=== PATIENT | female | born 1950 | race Caucasian/White ===

== ENCOUNTER 2016-02-12 20:46 | Inpatient (IN) | payer MEDICARE ==
[~2016-02-12] VITALS: Ht 154.9 cm; Wt 56.1 kg
[~2016-02-12 20:46] MED LIST: ALPR0.25 PO; ASPI1TAB PO; ASPI325T PO; ATEN50TA2 PO; CARV3.12 PO; DRIS50002 PO; FERR325T3 PO; FOLITAB5 PO; FURO20TA2 PO; HYDR25TAB PO; KLOR1CAP2 PO; LOSA25TA8 PO; LOSA50TA20 PO; LOVA40TA PO; MELO15TA4 PO; OXYCO5TA PO; PREG50CA PO; SERT25TA85 PO; VITA-130 PO; VITMTA PO
[2016-02-12] MEDS: SIMVASTATIN 40 MG TAB PO SCH (21:00)
[2016-02-12] MEDS: FOLIC ACID 1 MG TAB PO SCH (21:00)
[2016-02-12] MEDS: ASCORBIC ACID 500 MG TAB PO SCH (21:00)
[2016-02-12] MEDS ORDERED: ASPIRIN 325 MG TAB As Ordered ONE (21:22)
[2016-02-12 21:29] LABS: DIFF SLIDE NUMBER 314; MEAN CORPUSCULAR HEMOGLOBIN 29.7 pg (27.0-33.0); MEAN CORPUSCULAR HGB CONC 33.3 g/dl (32.0-36.5); MEAN CORPUSCULAR VOLUME 89.4 fl (80.0-96.0); RED CELL DISTRIBUTION WIDTH 16.6 % (11.5-14.5)
[2016-02-12 21:30] LABS: PLATELET COUNT, AUTOMATED 14 k/mm3 (150-450); WHITE BLOOD COUNT 0.7 K/mm3 (4.0-10.0)
[2016-02-12 21:45] LABS: ANISOCYTOSIS 1+
[2016-02-12 21:47] LABS: ALBUMIN 3.2 GM/DL (3.2-5.2); ALBUMIN/GLOBULIN RATIO 0.86 (1.00-1.93); ALKALINE PHOSPHATASE 83 U/L (45-117); ANION GAP 11 MEQ/L (8-16); AST/SGOT 17 U/L (15-37); BILIRUBIN,DIRECT 0.4 MG/DL (0.0-0.2); BILIRUBIN,TOTAL 1.1 MG/DL (0.2-1.0); BLOOD UREA NITROGEN 14 MG/DL (7-18); CARBON DIOXIDE LEVEL 23 MEQ/L (21-32); CHLORIDE LEVEL 107 MEQ/L (98-107); FREE T4 1.21 NG/DL (0.76-1.46); GLOMERULAR FILTRATION RATE 39.9 (>45); GLUCOSE, FASTING 128 MG/DL (80-110); POTASSIUM SERUM 4.7 MEQ/L (3.5-5.1); SODIUM LEVEL 141 MEQ/L (136-145); TOTAL PROTEIN 6.9 GM/DL (6.4-8.2)
[2016-02-12 21:52] LABS: ALT/SGPT 11 U/L (12-78)
[2016-02-12] MEDS ORDERED: ZOSYN 3.375 GM VIAL (J2543) As Ordered ONE (22:47)
[2016-02-12] MEDS ORDERED: VANCOMYCIN 1000 MG/20 ML VIAL (J3370) As Ordered ONE (22:47)
[2016-02-12] MEDS ORDERED: CIPR500T3 PO (23:15)
[2016-02-12] MEDS ORDERED: LORA10TA2 PO (23:15)
[2016-02-12] MEDS ORDERED: POTA10CA PO (23:15)
[2016-02-12] MEDS ORDERED: MIRA33504 PO (23:15)
[2016-02-12] MEDS ORDERED: DIPH50CA PO (23:15)
[2016-02-12] MEDS ORDERED: FOLI1TAB2 PO (23:15)
[2016-02-12] MEDS ORDERED: PROC10TA PO (23:15)
[2016-02-12] MEDS ORDERED: LORA0.5T PO (23:15)
[2016-02-13] VITALS (14 sets, daily range): BP systolic 124–150; BP diastolic 59–82
[2016-02-13] MEDS ORDERED: diphenhydrAMINE 50 MG CAP PO PRN (00:15)
[2016-02-13] MEDS ORDERED: MIRALAX *UNIT DOSE* 17GM PACKET PO PRN (00:15)
--- NOTE | 2016-02-13 01:18 | EDDOCDS ---
Nurse's Notes [facility] Name: Cheyanne Alexander Age: 65 yrs Sex: Female : 1950 Arrival Date: 02/12/2016 Time: 20:46 Bed 11 Private MD: Diagnosis: Fever, unspecified;Neutropenia Presentation: 02/11 20:50 Presenting complaint: EMS states: family called for delirium/fever. temp 101.9. pt mlc unable to answer simple questions. pt c/o substernal chest pain, triple bypass 3 months ago. 1x nitro given by EMS, pain resolved. hx of UTI, pt on day 7 of of cipro. hx of leukemia, finished chemo 2 weeks ago. takes aspirin daily. Adult Sepsis Screening: Patient has new or worsening altered mentation (1 point). Patient's respiratory rate is less than 22. Systolic blood pressure is greater than 100. Patient has a qSOFA score of 1- Negative Sepsis Screen. Suicide/Homicide risk assessment- the patient denies having any suicidal and/or homicidal ideations and does not present with any other emotional, behavioral or mental health complaints. Status: Patient is not a service specialist or dependent. Transition of care: patient was not received from another setting of care. 20:50 Acuity: NILAY Level 2 [facility] [place] 20:50 Method Of Arrival: Amb[place] [facility] [place] Triage Assessment: 21:04 General: Appears in no apparent distress, comfortable, Behavior is cooperative, mlc pleasant. Pain: Location: epigastric area. The patient is triaged at the bedside. See Assessment in Nurses Notes section of ED record. Neurological: Level of Consciousness is awake, confused, obeys commands, Oriented to person, place. Cardiovascular: Chest pain is denied pt states she is having chest pains but is pointing to her abdomen when asked where the pain is.. Respiratory: Airway is patent Respiratory effort is even, unlabored, Respiratory pattern is regular. GI:. GI: Reports nausea, vomiting. Derm: Skin is pale. Historical: - Allergies: SULFA (SULFONAMIDES); - Home Meds: 1. Vitamin D2 50,000 unit oral cap 1 cap once wkly 2. Vitamin C 500 mg Oral tab 1 tab nightly 3. furosemide 20 mg Oral tab 1 tab once daily 4. lovastatin 40 mg Oral tab 1 tab nightly 5. Cipro 500 mg Oral tab 1 tab every 12 hours on day 7 of 14 6. prochlorperazine maleate 10 mg Oral tab 1 tab 3 times per day as needed 7. lorazepam 0.5 mg Oral tab every 6 hours as needed 8. alprazolam 0.25 mg Oral TbDL 0.5 tab every 6 hours as needed 9. carvedilol 3.125 mg oral tab 1 tab 2 times per day 10. oxycodone 5 mg Oral cap 1 cap every 4 hours aS needed 11. aspirin 81 mg Oral tab 1 tab once daily 12. Dulera 100-5 mcg/actuation inhalation HFAA 2 puffs 2 times per day as needed 13. Miralax 17 gram Oral pwpk 1 packet once daily 14. potassium chloride 10 mEq Oral cpER 2 caps once daily 15. pregabalin 50 mg Oral cap 1 cap twice a day - PMHx: Angina; Anxiety; CHF; Chronic kidney disease; COPD; hyperlipidemia; Hypertension; Myocardial infarction; Leukemia; - PSHx: Cataract Surgery- Bilateral; CABG; Tubal ligation; - Social history: Smoking status: Patient states former smoker of tobacco. No barriers to communication noted, The patient speaks fluent Macanese. - Family history: No immediate family members are acutely ill. - : The pt / caregiver states he / she is not on anticoagulants. Home medication list is obtained from the patient, [employer] import data, pill bottles. - Exposure Risk Screening:: None identified. Screenin:08 Screening information is obtained from the patient. Fall risk: At risk due to apparent mlc cognitive impairment. Assistance ADL's: Requires assistance with housework, assistance is provided by family members. Abuse/DV Screen: The patient / caregiver reports he/she is: not in a situation that causes fear, pain or injury. Nutritional screening: No deficits noted. Advance Directives: Currently, there is a health care proxy, Ajit Alexander, son and Lou Alexander, daughter. There is no active DNR order. home support is adequate. Assessment: 21:41 General: Appears in no apparent distress, comfortable, Behavior is cooperative, mlc pleasant. Neurological: Level of Consciousness is awake, confused, obeys commands, Oriented to person, place. Cardiovascular: Capillary refill < 3 seconds Heart tones S1 S2 present. Respiratory: Airway is patent Respiratory effort is even, unlabored, Respiratory pattern is regular, Breath sounds are clear bilaterally. Derm: Skin is pale. 22:34 Reassessment: Patient appears in no apparent distress at this time. pt attempted to mlc urinate on bedpan, unable to at this time. . 23:30 Reassessment: Patient appears in no apparent distress at this time. no changes since [facility] [place] prior. resp easy/unlabored. . 02/12 00:15 General: Appears in no apparent distress, comfortable. General: antibiotics complete at [facility] [place] this time. family at bedside. resp easy/unlabored. pt awake and obeys commands. . Pain: Denies pain. 01:14 General: Appears in no apparent distress, comfortable, Behavior is cooperative. mlc Neurological: Level of Consciousness is awake, confused, obeys commands, Oriented to person, place. Respiratory: Airway is patent Respiratory effort is even, unlabored, Respiratory pattern is regular. Vital Signs: 02/11 21:06 BP 168 / 76; Pulse 103; Resp 20; Temp 96.4(O); Pulse Ox 98% on R/A; Weight 50.8 kg (R); [facility] Height 5 ft. 1 in. (154.94 cm) (R); Pain 6/10; 21:08 Temp 100.9(O); mlc 21:16 Pulse 96 MON; Pulse Ox 100% ; mlc 21:16 BP 197 / 73 (auto/); mlc 21:31 BP 155 / 70 (auto/); mlc 21:31 Pulse 96 MON; Pulse Ox 98% ; mlc 22:33 BP 144 / 54 (man/); mlc 23:46 Pulse 96 MON; Pulse Ox 98% ; [facility] [place] 02/12 00:12 Pulse 92 MON; Pulse Ox 97% ; mlc 00:34 Pulse 96 MON; Pulse Ox 99% ; mlc 00:46 BP 128 / 62 (man/); meagan 00:52 Pulse 98 MON; Pulse Ox 99% ; mlc 00:54 Temp 100.2(O); feb 01:14 BP 124 / 52; Pulse 95; Resp 18; Temp 99.9(O); Pulse Ox 98% on R/A; [facility] [place] 02/11 21:06 Body Mass Index 21.16 (50.80 kg, 154.94 cm) [facility] Vitals: 02/11 21:04 Log In Time N/A - ambulance arrival. [facility] [place] ED Course: 20:47 Patient visited by Vivek Blackwood PCA. kb5 20:47 Louise Louis,RN is Primary Nurse. kb5 20:47 Ja Meadows MD is Attending Physician. br1 20:47 Patient moved to Waiting kb5 20:47 Patient moved to 11 kb5 20:56 Triage Initiated mlc 20:58 Patient visited by Ja Meadows MD. br1 21:07 Pt greeted and oriented to ED. Patient advised of names of staff involved in care, jmv location of call serrato, wait times and NPO status. Patient has correct armband on for positive identification. Placed in gown. Bed in low position. Call light in reach. Side rails up X2. monitoring engineer on. Pulse ox on. NIBP on. 21:08 Patient visited by Nnamdi Del Rio PCA. jmv 21:08 EKG done. (by ED staff). Reviewed by Ja Meadows MD. jmv 21:16 Troponin Sent. mlc 21:16 Cardiac Injury Profile Sent. mlc 21:16 CBC with Diff Sent. mlc 21:16 Basic Metabolic Profile Sent. mlc 21:16 -Blood Culture Sent. mlc 21:16 Lactic Acid (Styles tube on ice) Sent. mlc 21:16 FT4&TSH PANEL Sent. mlc 21:16 LIVER PROFILE Sent. mlc 21:18 Patient visited by Ruth Key LPN. cp1 21:39 Notified attending ED physician of Critical lab value. Dr Meadows notified of WBC of 0.7 feb and platelet of 14. 21:41 PLATELET ESTIMATE Sent. mlc 21:41 DIFFERENTIAL NO CHARGE Sent. mlc 21:42 Patient visited by Louise Louis RN. mlc 21:51 Notified attending ED physician of Critical lab value. lactic acid of 2.[address] Meadows. 22:00 BLOOD CULTURES Sent. mlc 22:34 Uli Chung is Hospitalizing Provider. br1 22:35 Patient visited by Louise Louis RN. mlc 22:58 Maintain field IV. Dressing intact. Site clean & dry. Gauge & site: 20g right AC. mlc 22:58 Inserted saline lock: 22 gauge in right hand The patient tolerated the procedure well. mlc by Kisha Quinn RN. 23:15 [facility] Payment Agreement was scanned into [employer] and attached to record. gjb 23:51 Patient visited by Vivek Blackwood PCA. kb5 02/12 00:20 Patient visited by Kristin Francisco RN. ko2 00:46 Patient visited by Suad Contreras PCA. meagan 00:53 No procedures done that require assistance. mlc 00:54 The patient / caregiver is instructed regarding the plan of care and ED course. mlc Administered Medications: 02/11 21:41 Drug: Aspirin 325 mg [aspirin 325 mg tablet (1 tabs)] Route: PO; mlc 22:58 Drug: vancomycin 1 grams [vancomycin 1,000 mg intravenous injection] Route: IVPB; mlc Infused Over: 60 mins; Site: right antecubital; 02/12 00:19 Follow up: IV Status: Completed infusion; IV Intake: 250ml ko2 00:19 Drug: Piperacillin-Tazobactam 3.375 grams [piperacillin-tazobactam 3.375 gram ko2 intravenous solution] Route: IVPB; Infused Over: 30 mins; Site: right antecubital; Intake: 00:19 IV: 250.00ml; Total: 250.00ml. ko2 Order Results: Lab Order: Basic Metabolic Profile; SPEC'M 02/12/16 21:13 Test: GLUCOSE, FASTING; Value: 128; Range: 80-110; Abnormal: Above high normal; Units: MG/DL; Status: F Test: BLOOD UREA NITROGEN; Value: 14; Range: 7-18; Units: MG/DL; Status: F Test: CREATININE FOR GFR; Value: 1.40; Range: 0.55-1.02; Abnormal: Above high normal; Units: MG/DL; Status: F Test: GLOMERULAR FILTRATION RATE; Value: 39.9; Range: >45; Abnormal: Below low normal; Status: F Test: SODIUM LEVEL; Value: 141; Range: 136-145; Units: MEQ/L; Status: F Test: POTASSIUM SERUM; Value: 4.7; Range: 3.5-5.1; Abnormal: Delta; Units: MEQ/L; Status: F Test: CHLORIDE LEVEL; Value: 107; Range: 98-107; Units: MEQ/L; Status: F Test: CARBON DIOXIDE LEVEL; Value: 23; Range: 21-32; Units: MEQ/L; Status: F Test: ANION GAP; Value: 11; Range: 8-16; Units: MEQ/L; Status: F Test: CALCIUM LEVEL; Value: 8.0; Range: 8.8-10.2; Abnormal: Below low normal; Units: MG/DL; Status: F Test Note: ; Units are mL/min/1.73 m2 Chronic Kidney Disease Staging per NKF: Stage I & II GFR >=60 Normal to Mildly Decreased Stage III GFR 30-59 Moderately Decreased Stage IV GFR 15-29 Severely Decreased Stage V GFR <15 Very Little GFR Left ESRD GFR <15 on HUMAN MACHINE INTERFACE ENGINEER Lab Order: CBC with Diff; SPEC'M 02/12/16 21:13 Test: WHITE BLOOD COUNT; Value: 0.7; Range: 4.0-10.0; Abnormal: Critical Low; Units: K/mm3; Status: F Test: RED BLOOD COUNT; Value: 3.06; Range: 4.00-5.40; Abnormal: Below low normal; Units: M/mm3; Status: F Test: HEMOGLOBIN; Value: 9.1; Range: 12.0-16.0; Abnormal: Below low normal; Units: g/dl; Status: F Test: HEMATOCRIT; Value: 27.4; Range: 36.0-47.0; Abnormal: Below low normal; Units: %; Status: F Test: MEAN CORPUSCULAR VOLUME; Value: 89.4; Range: 80.0-96.0; Units: fl; Status: F Test: MEAN CORPUSCULAR HEMOGLOBIN; Value: 29.7; Range: 27.0-33.0; Units: pg; Status: F Test: MEAN CORPUSCULAR HGB CONC; Value: 33.3; Range: 32.0-36.5; Units: g/dl; Status: F Test: RED CELL DISTRIBUTION WIDTH; Value: 16.6; Range: 11.5-14.5; Abnormal: Above high normal; Units: %; Status: F Test: PLATELET COUNT, AUTOMATED; Value: 14; Range: 150-450; Abnormal: Critical Low; Units: k/mm3; Status: F Test: PLATELET ESTIMATE; Range: NORMAL; Status: I Test: NEUTROPHILS; Value: 3; Range: 35-75; Abnormal: Below low normal; Units: %; Status: F Test: LYMPHOCYTES; Value: 95; Range: 16-52; Abnormal: Above high normal; Units: %; Status: F Test: MONOCYTES; Value: 1; Range: 0-8; Units: %; Status: F Test: ATYPICAL LYMPH; Value: 1; Range: 0-5; Units: %; Status: F Test: ANISOCYTOSIS; Value: 1+; Status: F Lab Order: Cardiac Injury Profile; [facility] 02/12/16 21:13 Test: CPK CREATINE PHOSPHOKINASE; Value: 54; Range: 26-192; Units: U/L; Status: F Test: CK-MB VALUE MASS; Value: 1.0; Range: 0.0-3.6; Units: NG/ML; Status: F Test: MB/CK RELATIVE INDEX; Value: 1.85; Range: < OR =4; Status: F Test Note: ; DIAGNOSIS CRITERIA MMB ng/ml Relative Index (RI) NON-AMI < or = 5 N/A STYLES ZONE > 5 < or = 4 AMI > 5 > 4 Lab Order: Troponin; [facility] 02/12/16 21:13 Test: TROPONIN I; Value: < 0.02; Range: < 0.10; Units: NG/ML; Status: F Test Note: ; Troponin I Reference Interval for Viroblock LOCI: 99th Percentile= 0.00-0.045 ng/ml Risk Stratification: <= 0.10 ng/ml Decreased Risk for Adverse Clinical Events. 0.10-1.50 ng/ml Increased Risk for Adverse Clinical Events. Evaluation of additional criterion and/or repeat testing in 2-6 hours is suggested to rule out myocardial damage. >= 1.50 ng/ml Indicative of Myocardial Injury. Lab Order: Lactic Acid (Styles tube on ice); [facility] 02/12/16 21:13 Test: LACTIC ACID LEVEL, LACTATE; Value: 2.1; Range: 0.4-2.0; Abnormal: Above high normal; Units: MMOL/L; Status: F Lab Order: FT4&TSH PANEL; [facility] 02/12/16 21:13 Test: THYROID STIMULATING HORMONE; Value: 0.867; Range: 0.358-3.740; Units: uIU/ML; Status: F Test: FREE T4; Value: 1.21; Range: 0.76-1.46; Units: NG/DL; Status: F Lab Order: LIVER PROFILE; SPEC'M 02/12/16 21:13 Test: AST/SGOT; Value: 17; Range: 15-37; Units: U/L; Status: F Test: ALT/SGPT; Value: 11; Range: 12-78; Abnormal: Below low normal; Units: U/L; Status: F Test: ALKALINE PHOSPHATASE; Value: 83; Range: 45-117; Units: U/L; Status: F Test: BILIRUBIN,TOTAL; Value: 1.1; Range: 0.2-1.0; Abnormal: Above high normal; Units: MG/DL; Status: F Test: BILIRUBIN,DIRECT; Value: 0.4; Range: 0.0-0.2; Abnormal: Above high normal; Units: MG/DL; Status: F Test: TOTAL PROTEIN; Value: 6.9; Range: 6.4-8.2; Units: GM/DL; Status: F Test: ALBUMIN; Value: 3.2; Range: 3.2-5.2; Units: GM/DL; Status: F Test: ALBUMIN/GLOBULIN RATIO; Value: 0.86; Range: 1.00-1.93; Abnormal: Below low normal; Status: F Lab Order: PLATELET ESTIMATE; SPEC'M 02/12/16 21:13 Test: PLATELET ESTIMATE; Value: MARKED DECREASE; Range: NORMAL; Status: F Outcome: 02/11 22:34 Decision to Hospitalize by Provider. br1 02/12 01:14 Discharge Assessment: Patient awake, alert and oriented x 3. No cognitive and/or mlc functional deficits noted. Patient verbalized understanding of disposition instructions. patient administered narcotics - no. The following High Risk Discharge criteria are identified: None. Admitted to PCU accompanied by nurse, accompanied by tech, via stretcher, on monitor, with chart. Condition: good Condition: stable. Admission hand-off: Report Faxed Fax receipt verified by Neema on PCU. Property :Personal belongings accompany Pt. 01:16 No special radiology studies were completed. mlc 01:17 Patient left the ED. [facility] [place] Signatures: Nilsa Mann RN RN jan Bancroft, Kristopher, MEAT PACKAGER MEAT PACKAGER [id number] Ja Meadows MD MD br1 Ruth Key,LOU MARADIAGAN cp1 Suad Contreras, MEAT PACKAGER MEAT PACKAGER Louise Suárez,RN RN mlc Kristin Francisco RN RN ko2 Destiny Ayala Jose, MEAT PACKAGER MEAT PACKAGER jmv Corrections: (The following items were deleted from the chart) 01:16 01:14 CT Study completed. fredy daniel MTDD
--- NOTE | 2016-02-13 01:18 | EDDOCDS ---
Physician Documentation [facility] Name: Cheyanne Alexander Age: 65 yrs Sex: Female : 1950 Arrival Date: 02/12/2016 Time: 20:46 Bed 11 Private MD: Disposition: 02/12/16 22:34 Hospitalization ordered by Uli Chung for Inpatient Admission. Preliminary diagnosis are Fever, unspecified, Neutropenia. - Bed requested for PCU. - Status is Inpatient Admission. mlc - Condition is Stable. - Problem is new. - Symptoms are unchanged. Historical: - Allergies: SULFA (SULFONAMIDES); - Home Meds: 1. Vitamin D2 50,000 unit oral cap 1 cap once wkly 2. Vitamin C 500 mg Oral tab 1 tab nightly 3. furosemide 20 mg Oral tab 1 tab once daily 4. lovastatin 40 mg Oral tab 1 tab nightly 5. Cipro 500 mg Oral tab 1 tab every 12 hours on day 7 of 6. prochlorperazine maleate 10 mg Oral tab 1 tab 3 times per day as needed 7. lorazepam 0.5 mg Oral tab every 6 hours as needed 8. alprazolam 0.25 mg Oral TbDL 0.5 tab every 6 hours as needed 9. carvedilol 3.125 mg oral tab 1 tab 2 times per day 10. oxycodone 5 mg Oral cap 1 cap every 4 hours aS needed 11. aspirin 81 mg Oral tab 1 tab once daily 12. Dulera 100-5 mcg/actuation inhalation HFAA 2 puffs 2 times per day as needed 13. Miralax 17 gram Oral pwpk 1 packet once daily 14. potassium chloride 10 mEq Oral cpER 2 caps once daily 15. pregabalin 50 mg Oral cap 1 cap twice a day - PMHx: Angina; Anxiety; CHF; Chronic kidney disease; COPD; hyperlipidemia; Hypertension; Myocardial infarction; Leukemia; - PSHx: Cataract Surgery- Bilateral; CABG; Tubal ligation; - Social history: Smoking status: Patient states former smoker of tobacco. No barriers to communication noted, The patient speaks fluent Danish. - Family history: No immediate family members are acutely ill. - : The pt / caregiver states he / she is not on anticoagulants. Home medication list is obtained from the patient, [employer] import data, pill bottles. - Exposure Risk Screening:: None identified. Vital Signs: 02/11 21:06 BP 168 / 76; Pulse 103; Resp 20; Temp 96.4(O); Pulse Ox 98% on R/A; Weight 50.8 kg / jmv 111.99 lbs (R); Height 5 ft. 1 in. (154.94 cm) (R); Pain 6/10; 21:08 Temp 100.9(O); mlc 21:16 Pulse 96 MON; Pulse Ox 100% ; mlc 21:16 BP 197 / 73 (auto/); mlc 21:31 BP 155 / 70 (auto/); mlc 21:31 Pulse 96 MON; Pulse Ox 98% ; mlc 22:33 BP 144 / 54 (man/); mlc 23:46 Pulse 96 MON; Pulse Ox 98% ; mlc 02/12 00:12 Pulse 92 MON; Pulse Ox 97% ; mlc 00:34 Pulse 96 MON; Pulse Ox 99% ; mlc 00:46 BP 128 / 62 (man/); meagan 00:52 Pulse 98 MON; Pulse Ox 99% ; mlc 00:54 Temp 100.2(O); feb 01:14 BP 124 / 52; Pulse 95; Resp 18; Temp 99.9(O); Pulse Ox 98% on R/A; mlc 02/11 21:06 Body Mass Index 21.16 (50.80 kg, 154.94 cm) jmv MDM: 02/11 20:48 Network Firewall Engineer/Pulse Ox/q 30 min VS ordered. br1 20:48 IV Saline Lock ordered. br1 20:48 Rhythm Strip to chart ordered. br1 20:48 Undress patient appropriately for examination ordered. br1 20:49 Basic Metabolic Profile Ordered. EDMS 20:49 CBC with Diff Ordered. EDMS 20:49 Cardiac Injury Profile Ordered. EDMS 20:49 Troponin Ordered. EDMS 20:49 ECG WITH READING ER PHYS+CARDIAG ordered. EDMS 20:57 -Blood Culture (Adults Only), peripheral from different site, or from device/port/PICC br1 etc. if present ordered. 20:58 Lactic Acid (Styles tube on ice) Ordered. EDMS 20:58 -Blood Culture Ordered. EDMS 20:58 -Blood Culture (Adults Only), peripheral from different site, or from device/port/PICC ml3 etc. if present complete. 20:58 Urinalysis Ordered. EDMS 20:58 Urine Culture Ordered. EDMS 20:59 BLOOD CULTURES Ordered. EDMS 21:04 FT4&TSH PANEL Ordered. EDMS 21:04 LIVER PROFILE Ordered. EDMS 21:12 Chest, 2 View (pa\E\lat) Ordered. EDMS 21:12 Aspirin 325 mg PO once ordered. br1 21:34 DIFFERENTIAL NO CHARGE Ordered. EDMS 21:34 PLATELET ESTIMATE Ordered. EDMS 22:18 Basic Metabolic Profile Reviewed. br1 22:18 CBC with Diff Reviewed. br1 22:18 Lactic Acid (Styles tube on ice) Reviewed. br1 22:18 LIVER PROFILE Reviewed. br1 22:18 Cardiac Injury Profile Reviewed. br1 22:18 Troponin Reviewed. br1 22:18 FT4&TSH PANEL Reviewed. br1 22:18 PLATELET ESTIMATE Reviewed. br1 22:26 BED REQUEST+ADM ordered. EDMS 22:32 vancomycin 1 grams IVPB once over 60 mins; dilute in 250mL of NS or D5W ordered. br1 22:32 Piperacillin-Tazobactam 3.375 grams IVPB once over 30 mins; dilute in 50mL of NS or D5W br1 ordered. 23:15 [facility] Payment Agreement was scanned into [employer] and attached to record. [facility] [place] 23:15 Financial registration complete. b 02/12 00:15 NO ADDED SALT DIET ordered. EDMS 00:16 CARDIAC INJURY PROFILE Ordered. EDMS 00:16 CARDIAC INJURY PROFILE Ordered. EDMS 00:16 CARDIAC INJURY PROFILE Ordered. EDMS 00:16 LACTIC ACID LEVEL, LACTATE Ordered. EDMS 00:17 Admission / Observation Status ordered. EDMS 00:17 IRRADIATED PHERESIS PLATELETS Ordered. EDMS 00:19 ELECTROCARDIOGRAM ADULT ordered. EDMS Administered Medications: 02/11 21:41 Drug: Aspirin 325 mg [aspirin 325 mg tablet (1 tabs)] Route: PO; mlc 22:58 Drug: vancomycin 1 grams [vancomycin 1,000 mg intravenous injection] Route: IVPB; mlc Infused Over: 60 mins; Site: right antecubital; 02/12 00:19 Follow up: IV Status: Completed infusion; IV Intake: 250ml ko2 00:19 Drug: Piperacillin-Tazobactam 3.375 grams [piperacillin-tazobactam 3.375 gram ko2 intravenous solution] Route: IVPB; Infused Over: 30 mins; Site: right antecubital; Signatures: Dispatcher [employer] EDMS Nilsa Mann RN SHORTY marcell WilkinsIgnacio chauhanChantal, Fabric Normalizer Unit ml3 Ja Meadows MD MD br1 Louise Louis RN RN mlc Beck, Gabriela gjb Ogden, Kari RN ko2 The chart was reviewed and I authenticate all verbal orders and agree with the evaluation and treatment provided.Corrections: (The following items were deleted from the chart) 02/11 20:59 20:58 FT4&TSH PANEL+LAB ordered. EDMS EDMS 59 20:58 LIVER PROFILE+LAB ordered. EDMS EDMS Attachments: 23:15 [facility] Payment Agreement [email or web address] MTDD
[2016-02-13] MEDS: oxyCODONE 5MG TAB PO PRN ×4 (02:40→20:36)
[2016-02-13] MEDS: MEROPENEM INJ 1 GM in D5W MINI-BAG PLUS 100 ML IV SCH ×2 (02:41→14:09)
[2016-02-13] MEDS: ALPRAZolam 0.25 MG TAB PO PRN ×2 (03:26→17:06)
--- NOTE | 2016-02-13 03:51 | PHACANCOPD ---
PHARMACY VANCOMYCIN DOSING Pt Demographics Demographics Patient Age:65 , Weight:50.800 , Gender: female Adjusted Body Weight Date: 02/13/16, Adjusted Body Weight: Kg Events Past 24 Hours Events Past 24 Hours: YES: Fever, Pending Diagnostics Vancomycin Vancomycin indication: UTI Vancomycin Target Ranges: 15-20 mcg/ml Vancomycin Load Y/N: Yes Load Dose Date Time Vancomycin Load Dose: 1g Date: 02/12/16 Time: 2300 Vancomycin Dose Date: 02/13/16. Current Vancomycin Dose: [750 mg IV Q24H] Intermittent Dosing?: No Labs Labs Item Value Date Time White Blood Count 0.7 K/mm3 *L 02/12/162112 Creatinine 1.40 MG/DL H 02/12/162112 Lactic Acid Level 2.1 MMOL/L H 02/12/162112 Micro Microbiology 02/12/16 Blood Culture, Received Pending 02/12/16 Blood Culture, Received Pending 02/13/16 Urine Culture, Received Pending Creatinine Clearance Date:02/13/16. Estimated Creatinine Clearance: [~31.9 ml/min]. Pending Labs Vancomycin trough scheduled 02/15/16 @ 1000 Assessment and Plan Maintaining Current Dose?: Yes Reason for dose change: No Dose Change Pharmacist Note Pharmacist Note Date: 02/13/16. Pharmacist note: Day #1 Vancomycin initiated with a 1g loading dose followed by a maintenance regimen of 750 mg IV Q24H for the treatment of a UTI - aiming for a goal trough of 15-20 mcg/mL. The patient is currently neutropenic and mildly febrile. Scr is elevated at 1.40 with a baseline scr ~ 1.00. The patient has no PMH of MRSA or vanco use here at [facility]. Blood and urine cultures are currently pending. A trough is scheduled for 02/15/16 @ 1000. We will continue to monitor the patient and make further adjustments as needed. GWEN GALVAN [facility] Feb 13, 2016 03:51
[2016-02-13 08:09] LABS: ALBUMIN 2.9 GM/DL (3.2-5.2); ALBUMIN/GLOBULIN RATIO 0.73 (1.00-1.93); BILIRUBIN,TOTAL 1.2 MG/DL (0.2-1.0); CALCIUM LEVEL 7.9 MG/DL (8.8-10.2); CREATININE FOR GFR 1.39 MG/DL (0.55-1.02); GLOMERULAR FILTRATION RATE 40.3 (>45); POTASSIUM SERUM 3.8 MEQ/L (3.5-5.1); TOTAL PROTEIN 6.9 GM/DL (6.4-8.2)
[2016-02-13 08:18] LABS: DIFF SLIDE NUMBER 111; MEAN CORPUSCULAR HEMOGLOBIN 29.8 pg (27.0-33.0); MEAN CORPUSCULAR HGB CONC 32.9 g/dl (32.0-36.5); MEAN CORPUSCULAR VOLUME 90.8 fl (80.0-96.0); RED CELL DISTRIBUTION WIDTH 16.5 % (11.5-14.5)
[2016-02-13 08:36] LABS: WHITE BLOOD COUNT 0.5 K/mm3 (4.0-10.0)
[2016-02-13 08:37] LABS: PLATELET COUNT, AUTOMATED 6 k/mm3 (150-450)
--- NOTE | 2016-02-13 08:49 | ECGEPIP ---
Stationary ECG Study [facility] - ED Test Date: 2016-02-12 Pat Name: ITZEL SALAZAR Department: Room: [place] [address] Gender: F Gift Packer: agatha : 1950 Requested By: ANNETTE Amezquita Order Number: [id number] Reading MD: Myra Keating Measurements Intervals [place] Rate: 96 P: 79 [place]: 141 QRS: 67 QRSD: 98 T: -25 QT: 350 QTc: 443 Interpretive Statements SINUS RHYTHM ST DEVIATION AND MODERATE T-WAVE ABNORMALITY, CONSIDER ISCHEMIA INCREASED RATE 01/20/16 Electronically Signed On 02-13-2016 8:49:24 EST by Myra Keating
[2016-02-13] MEDS ORDERED: PANTOPRAZOLE 40MG TAB (PROTONIX) PO SCH (09:00)
[2016-02-13 09:19] LABS: BLAST CELLS 10 % (0-0)
[2016-02-13 09:20] LABS: ANISOCYTOSIS 1+; HYPOCHROMASIA 1+; MICROCYTOSIS 1+
[2016-02-13] MEDS: CARVedilol 3.125 MG TAB PO SCH ×2 (09:32→20:33)
[2016-02-13] MEDS: LORATADINE 10 MG TAB PO SCH (09:33)
--- NOTE | 2016-02-13 09:39 | REP ---
CHEST X-RAY: Two views. HISTORY: Chest pain and fever. Comparison chest x-ray January 20, 2016. FINDINGS: Patient status post prior median sternotomy. EKG electrodes are seen. The lungs are symmetrically aerated and free of infiltrate. Pleural angles are sharp. Heart size is mildly enlarged unchanged. Pulmonary vasculature is not increased. No significant bony abnormality is seen. IMPRESSION: Mild cardiomegaly post median sternotomy. No infiltrate seen. Otherwise no acute disease. Signed by Matthew Roque MD 02/13/2016 12:02 P
[2016-02-13 09:59] LABS: BASO % 1.5 % (0.0-1.0); EOS % 0.8 % (0.0-3.0); LARGE UNSTAINED CELL % 4.7 % (0.0-4.0); LYMPH # 0.5 K/mm3 (1.5-4.5); LYMPH % 78.5 % (24.0-44.0); MEAN CORPUSCULAR HEMOGLOBIN 30.9 pg (27.0-33.0); MEAN CORPUSCULAR HGB CONC 34.8 g/dl (32.0-36.5); MEAN CORPUSCULAR VOLUME 88.9 fl (80.0-96.0); MONO % 2.8 % (0.0-5.0); NEUTROPHILS # 0.1 K/mm3 (1.8-7.7); NEUTROPHILS % 13.1 % (36.0-66.0); RED CELL DISTRIBUTION WIDTH 16.4 % (11.5-14.5)
[2016-02-13 10:01] LABS: PLATELET COUNT, AUTOMATED 37 k/mm3 (150-450)
[2016-02-13 10:02] LABS: WHITE BLOOD COUNT 0.6 K/mm3 (4.0-10.0)
[2016-02-13] MEDS ORDERED: NS 1,000 ML IV SCH (10:56)
[2016-02-13] MEDS: VANCOMYCIN HCL 750 MG, VIAL MATE ADAPTER 1 EACH in D5W 250 ML IV SCH (11:37)
--- NOTE | 2016-02-13 13:40 | IPN ---
DATE: 02/13/2016 Time patient was seen was at 10:30. The patient has been seen and examined at bedside. The patient states that she is feeling better; however, she appears to be only alert, awake and oriented to the time and person. The patient does not know which hospital she is in. According to the patient's family, the patient's altered mental status started about one week ago and was diagnosed with urinary tract infection and placed on Levofloxacin; however, her condition has not improved. Therefore, she was admitted for therapy. Dr. Barone is going to be her new silo operator/oncologist in February, and who was also contacted last night and recommended to transfer the patient to [place] for further management; however, the patient's family refused and would like to stay here. In addition, the patient also appears to be somewhat confused and does not answer all the questions appropriately. Does not follow commands appropriately either; however, she denies any chills. Denies any chest pain, trouble breathing, abdominal pain, nausea, vomiting, diarrhea, constipation. Denies any problem with urination. PHYSICAL EXAMINATION: VITAL SIGNS: Temperature 100.4, pulse 98, respirations 20, blood pressure 124/62, oxygen saturation 97% on room air. GENERAL: The patient is a well developed, well nourished, , elderly female who was alert, awake, and oriented to person and time only. Does not know which hospital she was in. Does not appear to be in distress. Lying comfortably in bed with head elevated at 20 degrees. HEENT: Normocephalic, atraumatic. Extraocular motor intact. Mucosa moist. Neck supple. No neck lymphadenopathy. CARDIOVASCULAR: Regular rate and rhythm. S1, S2. No murmurs, rubs or gallops. LUNGS: Clear to auscultation bilaterally. No wheezes, rales or rhonchi. ABDOMEN: Positive bowel sounds. Soft, nontender, nondistended. No peritoneal signs. No ecchymoses. EXTREMITIES: No edema, clubbing, or cyanosis. SKIN: The patient does have petechiae throughout her body, especially on her back. However, no signs of gastrointestinal bleeding or bleeding from the nose, ears, or mouth. NEUROLOGIC: Cranial nerves II through XII intact. However, [id number] test the patient does not perform well. The patient was pointing to her eye sometimes and does not remember to point back to her nose at times also on both hands. Otherwise, positive strength at 5/5 bilaterally. LABORATORY DATA: WBC 0.6, hemoglobin 7.0, hematocrit 22.5, platelet count of 37. Initially, platelet count was 14 and 6.0. MCV was 88.9. Neutrophil percentage was 13, lymphocyte was 78.5, monocytes 2.8, eosinophil 0.8, basophil percentage 1.5, leukocyte percentage 4.7, and neutrophil count 0.1, lymphocyte count 0.5. Sodium 139, potassium 3.8, chloride 107, bicarbonate 23, BUN 15, creatinine 1.39 with a GFR of 40.3 and fasting glucose 97. Lactic acid 1.4 and before that was 2.1. Calcium 7.9, total bilirubin 1.2, AST 12, ALT 9, alkaline phosphatase 76, total CK 35, CK-MB 1, troponin level was not shown and before was less than 0.02. Total protein 6.9, albumin 2.9. Urinalysis shows 2 urobilinogen and 1+ bacteria. Blood culture times two is pending. Urine culture is pending. The patient received 1 unit of irradiated phoresis platelets and will receive 2 more irradiated leukocyte reduced red blood cells. She is O positive. The patient had a two-view chest x-ray in the emergency room last night shows mild cardiomegaly, post median sternotomy. No infiltrates seen. MRI of the brain has been ordered and results pending. ASSESSMENT AND PLAN: 1. 65-year-old female with a past medical history of myelodysplastic syndrome recently diagnosed, also pancytopenia and recent urinary tract infection, allergies, coronary artery disease, anxiety, constipation, vitamin deficiency, hyperlipidemia, who presented with neutropenic fever with WBC 0.7 and percentage neutrophil of 13.1. Also has a fever, highest 100.8. According to the patient' s family, she had a UTI that started about 7 days ago and was placed on levofloxacin; however, her condition has not improved and she has been receiving vancomycin and meropenem since last night. We will continue. The patient's urine culture, blood culture are currently pending. Urinalysis did show 1+ bacteria. The patient has been on 7 days of levofloxacin. The patient also appears to be disoriented and confused, possibly delirium from infection. We will continue to monitor the patient and continue to followup the cultures. 2. Altered mental status, likely secondary to delirium from UTI versus neurological etiology, such as lacunar infarction vs. septic encephalopathy. MRI of the head has been ordered. We will followup with the results. 3. Pancytopenia with WBC of 0.6, hemoglobin of 7.8, hematocrit 22.5, and platelets of 37 currently. Initially, platelets were 14 and earlier last night was 6.The patient did receive 1 unit of irradiated platelets and will receive a second unit today. In addition, the patient will receive 2 units of irradiated packed red blood cells. We will continue to trend the patient's CBC. The patient does have petechiae throughout her body right now. We will monitor for any signs of bleeding. 4. History of myelodysplastic syndrome. Dr. Barone will be the patient's new silo operator/oncologist. Dr. Chung has spoken to Dr. Barone last night and we will contact him again regarding possibly starting the patient on Neupogen and further management. 5. Deep vein thrombosis (DVT) prophylaxis. The patient has thrombocytopenia, therefore she does not have chemical DVT prophylaxis. In addition, the patient is ambulatory. DISPOSITION: The patient has neutropenic fever. We will followup the cultures and continue antibiotics. In addition, we will contact Dr. Barone on further management. We will also monitor for any signs of bleeding and continue to replete the patient's platelets and RBCs. We will continue to monitor the patient's altered mental status and we will followup with the MRI of the brain results. The patient has been discussed with attending doctor, Dr. Chan. My preceptor for this patient encounter was Dr. Chan. The preceptor was physically present in the building during the encounter and was fully available. As needed, all aspects of the patient interview, examination, medical decision making process, and medical care plan development were reviewed and approved by the preceptor. The preceptor is aware and concurs with the plan as stated in the body of this note and will attest to such by his/her cosignature. ROX
--- NOTE | 2016-02-13 14:00 | REP ---
MRI BRAIN WITHOUT CONTRAST: HISTORY: Altered mental status. COMPARISON: CT 01/20/2016. The examination is incomplete and limited secondary to motion. Areas of increased signal intensity on T2-weighted images are present in the periventricular and subcortical white matter. This represents small vessel ischemic disease. There is no intraparenchymal hemorrhage, infarct, mass or midline shift. The ventricular system and cortical sulci are dilated consistent with mild volume loss. There is no extracerebral collection. Mucosal thickening is present in the ethmoid and left sphenoid sinuses. IMPRESSION: Limited incomplete examination demonstrating small vessel ischemic disease and mild volume loss. Acute infarctions cannot be excluded. Signed by Edy Gusman MD 02/13/2016 02:11 P
--- NOTE | 2016-02-13 14:29 | ECGEPIP ---
Stationary ECG Study [facility] [place] Test Date: 2016-02-13 Pat Name: ITZEL SALAZAR Department: Room: [place] [address] Gender: F Medical Attendant: DARIUS : 1950 Requested By: MICHAEL DE LA CRUZ Order Number: [id number] Reading MD: Velia Diego Measurements Intervals [place] Rate: 101 P: 64 PA: 139 QRS: 66 QRSD: 98 T: -49 QT: 323 QTc: 419 Interpretive Statements SINUS TACHYCARDIA POSSIBLE LEFT ATRIAL ENLARGEMENT ST DEVIATION AND MODERATE T-WAVE ABNORMALITY, CONSIDER INFERIORLATERAL ISCHEMIA RATE FASTER INFERIOR CHANGES NEW C/W 02/12/16 Electronically Signed On 02-13-2016 14:29:08 EST by Velia Diego
[2016-02-13 14:47] LABS: INR 1.32
[2016-02-13] MEDS: ONDANSETRON 4MG/2ML VIAL (J2405) IV PRN (15:50)
[2016-02-13] MEDS: ACETAMINOPHEN TAB 650MG DOSE (2X325MG) PO PRN (15:51)
[2016-02-13] MEDS: FOLIC ACID 1 MG TAB PO SCH (20:33)
[2016-02-13] MEDS: SIMVASTATIN 40 MG TAB PO SCH (20:33)
[2016-02-13] MEDS: ASCORBIC ACID 500 MG TAB PO SCH (20:33)
[2016-02-13 21:03] LABS: MEAN CORPUSCULAR HEMOGLOBIN 30.7 pg (27.0-33.0); MEAN CORPUSCULAR HGB CONC 35.5 g/dl (32.0-36.5); MEAN CORPUSCULAR VOLUME 86.7 fl (80.0-96.0)
[2016-02-13 21:05] LABS: WHITE BLOOD COUNT 0.7 K/mm3 (4.0-10.0)
[2016-02-14] VITALS (8 sets, daily range): BP systolic 106–158; BP diastolic 53–71
[2016-02-14] MEDS: MEROPENEM INJ 1 GM in D5W MINI-BAG PLUS 100 ML IV SCH ×2 (02:18→13:56)
[2016-02-14] MEDS: oxyCODONE 5MG TAB PO PRN ×4 (02:20→20:37)
[2016-02-14 05:41] LABS: MEAN CORPUSCULAR HEMOGLOBIN 30.2 pg (27.0-33.0); MEAN CORPUSCULAR HGB CONC 35.7 g/dl (32.0-36.5); MEAN CORPUSCULAR VOLUME 84.7 fl (80.0-96.0); RED CELL DISTRIBUTION WIDTH 15.3 % (11.5-14.5)
[2016-02-14 05:46] LABS: WHITE BLOOD COUNT 0.6 K/mm3 (4.0-10.0)
[2016-02-14 05:52] LABS: ALBUMIN 2.8 GM/DL (3.2-5.2); ALBUMIN/GLOBULIN RATIO 0.72 (1.00-1.93); CALCIUM LEVEL 7.7 MG/DL (8.8-10.2); CREATININE FOR GFR 1.24 MG/DL (0.55-1.02); GLOMERULAR FILTRATION RATE 45.9 (>45); MAGNESIUM LEVEL 1.6 MG/DL (1.8-2.4); POTASSIUM SERUM 3.7 MEQ/L (3.5-5.1); TOTAL PROTEIN 6.7 GM/DL (6.4-8.2)
--- NOTE | 2016-02-14 08:16 | HPE ---
DATE OF ADMISSION: 02/13/2016 REASON FOR ADMISSION: Fever, neutropenia. PRIMARY CARE PROVIDER: Dr. Pinto MEDICAL IMAGING TECHNICIAN: Dr. Chowdary HISTORY OF PRESENT ILLNESS: Patient is a 65-year-old female with past medical history significant for myelodysplastic syndrome status post chemo 2 weeks ago, history of coronary kidney disease, history of coronary artery disease status post CABG 3 months ago, history of hypertension, hyperlipidemia, anxiety, and congestive heart failure. She presented to the emergency room with her son and daughter after she had a temperature of 101.9 at home as well as confusion that started 3 days ago. Prior to admission, also patient was complaining of chest pain. She received one dose of nitro in the ambulance. Patient stated that she started to have this chest pain, which was described as a spasm after she had something to drink, lasting only a few seconds, non-radiating. Patient stated that she was recently diagnosed with a urinary tract infection. She finished 1 of 2 weeks of Cipro. She had a workup of leukemia initially, but later was found to have myelodysplastic syndrome (MDS). Workup was done in [place] and she was referred to oncology in [place] to continue treatment. She is supposed to see Dr. Barone on 02/27/2016. Has not yet seen him. In the emergency room, patient was started on IV antibiotics. Blood and urine cultures were ordered. She is otherwise hemodynamically stable. She denied any chest pain at this time. Denied any nausea or vomiting. Denied any diarrhea. Denied any cough or chills. Patient has multiple bruising and petechiae diffusely all over her skin, worse on her back. Hospitalist was called for the admission. Patient was advised to be transferred to [place] after speaking with oncologist. He recommended that patient be transferred to [place] for questionable acute leukemia. However, patient declined. Family aware of the risks and they wish to have patient admitted in [facility] rather than be transferred to [place]. REVIEW OF SYSTEMS: 12-point review of systems was obtained all which was negative except for those mentioned above. PAST MEDICAL HISTORY: Significant for anxiety, congestive heart failure, coronary kidney disease, chronic obstructive pulmonary disease (COPD), hyperlipidemia, hypertension, history of myocardial infarction ([place]), myelodysplastic syndrome. PAST SURGICAL HISTORY: Cataract surgery, bilateral CABG, tubal ligation. SOCIAL HISTORY: Patient is a former smoker, quit many years ago. Currently lives at home with her son. ALLERGIES: To SULFA, reaction itching. HOME MEDICATIONS: Include: - alprazolam 0.125 every 6 hours as needed, anxiety - vitamin C 500 mg by mouth at bedtime - carvedilol 3.125 mg by mouth twice a day - ciprofloxacin 500 mg by mouth twice a day - folic acid 1 mg by mouth at bedtime - Lasix 20 mg by mouth daily - loratadine 10 mg by mouth daily - lorazepam 0.5 mg every 6 hours - lovastatin 40 mg by mouth at bedtime - oxycodone 5 mg every 4 hours as needed for pain - MiraLAX 17 gram packet daily as needed for constipation - potassium chloride 10 mEq tablet by mouth daily - Compazine 10 mg by mouth three times a day as needed, nausea or vomiting - vitamin D 50,000 units a week FAMILY HISTORY: Noncontributory. PHYSICAL FINDINGS: Blood pressure on admission was 168/76, pulse 103, respiratory rate 20, temperature 96.4, pulse oximetry 98% on room air. HEENT: Pupils equal round reactive to light and accommodation. Neck: Supple. Cardiac: Tachycardiac. No murmurs appreciated. Lungs: Clear to auscultation (CTA) bilaterally. No wheezes. No rhonchi. No rales. Abdomen: Soft, nontender, nondistended. Extremities: No clubbing, cyanosis or edema. Skin: Petechiae and bruising diffusely. Neurologic: Patient is awake, alert, oriented to person and place but not the time. She seems to be a little confused when it comes to sequence of events and much of the history was provided by her daughter who is at bedside. LABORATORY DATA: WBC 0.7, hemoglobin 9.1, hematocrit 27.4, platelet count 14. Sodium 141, potassium 4.7, chloride 107, BUN 14, creatinine 1.4, lactic acid 2.1, AST 70, ALT 11, direct bilirubin 0.4, total bilirubin 1.1, troponin less than 0.02, TSH 0.87. ASSESSMENT AND PLAN: 1. Fever, unknown etiology at this time, likely secondary to urinary tract infection since patient recently was diagnosed with a urinary tract infection (UTI). Cultures were positive for Klebsiella pneumonia, which was positive for ciprofloxacin. We will start patient on vancomycin and meropenem at this time for broad coverage. Blood and urine cultures were ordered. We will repeat lactic acid. 2. Sepsis likely secondary to urinary tract infection. We will continue broad spectrum antibiotics. Repeat lactic acid. Continue fluids with antibiotics. At this time, we will not start IV normal saline by itself given patient's history of congestive heart failure. Patient is currently hemodynamically stable. We will continue to monitor closely. We will admit patient to telemetry and monitor on cardiac monitoring. 3. Chest pain, resolved. Likely esophageal spasm. Cannot rule out cardiac causes given patient's history. We will order cardiac enzymes every 8 hours and will repeat EKG in the morning. Will continue to monitor on telemetry. 4. History of myelodysplastic syndrome. Spoke with Dr. Barone, who recommended patient be transferred to [place]. However, patient refused the transfer and her son and daughter wanted her to stay in [place]. They understood the risks. We will continue to monitor conservatively. 5. Leukopenia, thrombocytopenia. We will order 1 unit of platelets at this time. Patient was scheduled for a transfusion in the morning of platelets. 6. Anemia, currently stable. We will order fecal occult blood to rule out any gastrointestinal (GI) bleeding. 7. History of coronary artery disease. Continue beta-angelito. Continue statin. 8. History of congestive heart failure, unknown ejection fraction. We will hold Lasix at this time in the setting of sepsis. 9. Chronic kidney disease. Creatinine 1.4. Will continue to monitor. 10. Deep venous thrombosis (DVT) prophylaxis. Sequential compressive devices (SCDs) while in bed.
[2016-02-14] MEDS ORDERED: MAG SULF 1GM/100ML (MAG RUN) 1 GM in APPROPRIATE DILUENT 1 EA IV ONE (08:45)
[2016-02-14] MEDS: CARVedilol 3.125 MG TAB PO SCH ×2 (08:58→20:37)
[2016-02-14] MEDS: PANTOPRAZOLE 40MG TAB (PROTONIX) PO SCH ×2 (08:59→20:36)
[2016-02-14] MEDS: LORATADINE 10 MG TAB PO SCH (09:00)
[2016-02-14 09:14] LABS: BILIRUBIN,DIRECT 0.9 MG/DL (0.0-0.2)
--- NOTE | 2016-02-14 09:31 | IPN ---
DATE: 02/14/2016 Time patient was seen was at 8:10. The patient seen and examined at bedside. The patient states that she is feeling about the same. Admits to some chest pain. States it is constant and worse with drinking water. Otherwise denies any trouble breathing, any abdominal pains, any nausea or vomiting, diarrhea or constipation, or any problem with urination. The patient did admit to some vomiting two to three days ago and admitted the chest pain started two to three days ago as well. However, there was no blood in the vomitus. The patient denies any other current complaints. PHYSICAL EXAMINATION: VITAL SIGNS: Temperature 98.8, pulse 74, respirations 20, blood pressure 157/71 , oxygen saturation 98% on room air. GENERAL: The patient is a thin looking, elderly female who was alert, awake, and oriented times three today. Yesterday was only times two. Does not appear to be in distress. Resting comfortably in bed with head elevated at 10 degrees. HEENT: Normocephalic, atraumatic. Extraocular motor intact. Mucosa moist. Neck supple. No neck lymphadenopathy. CARDIOVASCULAR: Regular rate and rhythm. S1, S2. No murmurs, rubs or gallops. LUNGS: Clear to auscultation bilaterally. No wheezes, rales or rhonchi. ABDOMEN: Positive bowel sounds. Soft, nontender, nondistended. No peritoneal signs. No ecchymoses. EXTREMITIES: No edema, clubbing or cyanosis. SKIN: The patient has multiple petechiae throughout the body. NEUROLOGIC: Cranial nerves II-XII intact. No focal neurologic deficit. LABS: WBC 0.6, hemoglobin 10.7, hematocrit 30, with platelet count of 70, improved from yesterday of 20. MCV was 84.7. Sodium 140, potassium 3.7, chloride 107, bicarbonate 23, BUN 18, creatinine 1.24 , GFR 45.9, with fasting glucose of 95. Calcium 7.7, magnesium 1.6 - low, total bilirubin 2, AST 9, ALT 8, alkaline phosphatase 76. Troponin this morning was less than 0.02. Total protein 5.7. Albumin 2.8. Coag yesterday showed PT 16.5, INR 1.32, and PTT 38.3. Urine culture is currently pending. Blood culture shows no growth after two days. The patient's MRI of the brain yesterday shows limited incomplete exam due to motion artifact; however, patient does appear to have small vessel ischemic disease and mild volume loss and acute infarctions cannot be excluded; however, there was no intraparenchymal hemorrhage, infarct, mass, or midline shift. ASSESSMENT AND PLAN: 65-year-old female with a past medical history of anxiety, congestive heart failure (CHF), coronary artery disease, chronic obstructive pulmonary disease (COPD), history of myocardial infarction ([place]), coronary artery bypass graft (CABG), hyperlipidemia, hypertension, myelodysplastic syndrome who presented with: 1. Fever, unknown etiology at this time. Likely secondary to urinary tract infection. The patient however is also neutropenic. Culture outpatient shows positive for Klebsiella pneumoniae and was placed on ciprofloxacin outpatient. Dr. Chung has spoken to Dr. Barone initially and recommended transferring patient ; however, patient's family refused. The patient is currently on vancomycin and meropenem, will continue. Urine culture result is pending. Blood culture shows no growth after two days. Will continue to follow. 2. Sepsis, likely secondary to urinary tract infection. Continue antibiotics. 3. Altered mental status secondary to septic encephalopathy. MRI of head didn't show acute findings. Will continue to monitor. 4. Chest pain. Likely secondary to esophageal spasm versus Trisha-Case tear versus peptic ulcer disease. Patient has since started on Protonix twice a day as well as Carafate. In addition, will perform rectal exam today to check for fecal occult blood, which was ordered however also on admission. If fecal occult blood is positive, will consider ordering a barium swallow to rule out Trisha-Case tear. Will continue to monitor. At this point, cardiac enzymes have been negative. There is less likely cardiac. 5. Myelodysplastic syndrome. Dr. Barone initially recommended transferring patient to [place], however, family refused. The patient understands the risks. The patient does have a pancytopenia. Patient did receive transfusion yesterday with two irradiated red blood cells and also two units of irradiated pheresis platelets. The patient's platelet count increased from 20 last night to 70 today. Hemoglobin level increased from 7.8 to 10.7 today. Will continue to trend patient's CBC later this afternoon around 2:00 p.m. and will transfuse again if needed if hemoglobin is less than 8 or if platelet is less than 20. 6. History of coronary artery disease status post CABG. Continue beta angelito and statin. 7. History of congestive heart failure. Unknown ejection fraction or the type. Will hold Lasix at this point. The patient does not have any peripheral edema. Will continue to monitor. Lasix has been on hold. 8. Chronic kidney disease. Appears to be stable. Continue to monitor. 9. Deep vein thrombosis (DVT) prophylaxis with sequential compression device (SCD) and no chemical prophylaxis due to patient has pancytopenia. DISPOSITION: Will continue to treat patient's urinary tract infection and sepsis. Patient no longer has fever this morning. Last fever was this morning at 2:20, which was 100.4. The patient does not report any chills. Will continue IV antibiotics and rule out etiology of her chest pain. The patient also would like to be DO NOT RESUSCITATE (DNR) again. Patient was previously DNR before her cardiac surgery. The patient has been discussed with attending doctor, Dr. Chan. My preceptor for this patient encounter was Dr. Chan. The preceptor was physically present in the building during the encounter and was fully available. As needed, all aspects of the patient interview, examination, medical decision making process, and medical care plan development were reviewed and approved by the preceptor. The preceptor is aware and concurs with the plan as stated in the body of this note and will attest to such by his/her cosignature. ROX
[2016-02-14] MEDS: SUCRALFATE 1 GM TAB PO SCH ×3 (11:11→20:36)
[2016-02-14] MEDS: VANCOMYCIN HCL 750 MG, VIAL MATE ADAPTER 1 EACH in D5W 250 ML IV SCH (12:19)
[2016-02-14 14:46] LABS: MEAN CORPUSCULAR HEMOGLOBIN 30.8 pg (27.0-33.0); MEAN CORPUSCULAR HGB CONC 36.2 g/dl (32.0-36.5); MEAN CORPUSCULAR VOLUME 85.1 fl (80.0-96.0); RED CELL DISTRIBUTION WIDTH 15.3 % (11.5-14.5)
[2016-02-14 16:17] LABS: WHITE BLOOD COUNT 0.7 K/mm3 (4.0-10.0)
[2016-02-14] MEDS: SENNA 8.6 MG TAB (SENOKOT) PO SCH (18:17)
[2016-02-14] MEDS: MOM 30ML SUSPENSION UDC PO PRN (18:17)
[2016-02-14] MEDS: GI COCKTAIL 50ML BTL(HYOSCYAMINE/MAALOX/LIDOCAINE VISCOUS)(1:3:1) PO PRN (18:18)
[2016-02-14] MEDS: MIRALAX *UNIT DOSE* 17GM PACKET PO SCH (20:29)
[2016-02-14] MEDS: SIMVASTATIN 40 MG TAB PO SCH (20:36)
[2016-02-14] MEDS: FOLIC ACID 1 MG TAB PO SCH (20:37)
[2016-02-14] MEDS: ASCORBIC ACID 500 MG TAB PO SCH (20:37)
[2016-02-15] VITALS: BP 140/71
--- NOTE | 2016-02-15 02:18 | EDDOCDS ---
Physician Documentation [facility] Name: Cheyanne Alexander Age: 65 yrs Sex: Female : 1950 Arrival Date: 02/12/2016 Time: 20:46 Bed 11 Private MD: Disposition: 02/12/16 22:34 Hospitalization ordered by Uli Chung for Inpatient Admission. Preliminary diagnosis are Fever, unspecified, Neutropenia. - Bed requested for PCU. - Status is Inpatient Admission. mlc - Condition is Stable. - Problem is new. - Symptoms are unchanged. Historical: - Allergies: SULFA (SULFONAMIDES); - Home Meds: 1. Vitamin D2 50,000 unit oral cap 1 cap once wkly 2. Vitamin C 500 mg Oral tab 1 tab nightly 3. furosemide 20 mg Oral tab 1 tab once daily 4. lovastatin 40 mg Oral tab 1 tab nightly 5. Cipro 500 mg Oral tab 1 tab every 12 hours on day 7 of 6. prochlorperazine maleate 10 mg Oral tab 1 tab 3 times per day as needed 7. lorazepam 0.5 mg Oral tab every 6 hours as needed 8. alprazolam 0.25 mg Oral TbDL 0.5 tab every 6 hours as needed 9. carvedilol 3.125 mg oral tab 1 tab 2 times per day 10. oxycodone 5 mg Oral cap 1 cap every 4 hours aS needed 11. aspirin 81 mg Oral tab 1 tab once daily 12. Dulera 100-5 mcg/actuation inhalation HFAA 2 puffs 2 times per day as needed 13. Miralax 17 gram Oral pwpk 1 packet once daily 14. potassium chloride 10 mEq Oral cpER 2 caps once daily 15. pregabalin 50 mg Oral cap 1 cap twice a day - PMHx: Angina; Anxiety; CHF; Chronic kidney disease; COPD; hyperlipidemia; Hypertension; Myocardial infarction; Leukemia; - PSHx: Cataract Surgery- Bilateral; CABG; Tubal ligation; - Social history: Smoking status: Patient states former smoker of tobacco. No barriers to communication noted, The patient speaks fluent Italian. - Family history: No immediate family members are acutely ill. - : The pt / caregiver states he / she is not on anticoagulants. Home medication list is obtained from the patient, [employer] import data, pill bottles. - Exposure Risk Screening:: None identified. Vital Signs: 02/11 21:06 BP 168 / 76; Pulse 103; Resp 20; Temp 96.4(O); Pulse Ox 98% on R/A; Weight 50.8 kg / jmv 111.99 lbs (R); Height 5 ft. 1 in. (154.94 cm) (R); Pain 6/10; 21:08 Temp 100.9(O); mlc 21:16 Pulse 96 MON; Pulse Ox 100% ; mlc 21:16 BP 197 / 73 (auto/); mlc 21:31 BP 155 / 70 (auto/); mlc 21:31 Pulse 96 MON; Pulse Ox 98% ; mlc 22:33 BP 144 / 54 (man/); mlc 23:46 Pulse 96 MON; Pulse Ox 98% ; mlc 02/12 00:12 Pulse 92 MON; Pulse Ox 97% ; mlc 00:34 Pulse 96 MON; Pulse Ox 99% ; mlc 00:46 BP 128 / 62 (man/); meagan 00:52 Pulse 98 MON; Pulse Ox 99% ; mlc 00:54 Temp 100.2(O); feb 01:14 BP 124 / 52; Pulse 95; Resp 18; Temp 99.9(O); Pulse Ox 98% on R/A; mlc 02/11 21:06 Body Mass Index 21.16 (50.80 kg, 154.94 cm) jmv MDM: 02/11 20:48 Conveyor Operator/Pulse Ox/q 30 min VS ordered. br1 20:48 IV Saline Lock ordered. br1 20:48 Rhythm Strip to chart ordered. br1 20:48 Undress patient appropriately for examination ordered. br1 20:49 Basic Metabolic Profile Ordered. EDMS 20:49 CBC with Diff Ordered. EDMS 20:49 Cardiac Injury Profile Ordered. EDMS 20:49 Troponin Ordered. EDMS 20:49 ECG WITH READING ER PHYS+CARDIAG ordered. EDMS 20:57 -Blood Culture (Adults Only), peripheral from different site, or from device/port/PICC br1 etc. if present ordered. 20:58 Lactic Acid (Styles tube on ice) Ordered. EDMS 20:58 -Blood Culture Ordered. EDMS 20:58 -Blood Culture (Adults Only), peripheral from different site, or from device/port/PICC ml3 etc. if present complete. 20:58 Urinalysis Ordered. EDMS 20:58 Urine Culture Ordered. EDMS 20:59 BLOOD CULTURES Ordered. EDMS 21:04 FT4&TSH PANEL Ordered. EDMS 21:04 LIVER PROFILE Ordered. EDMS 21:12 Chest, 2 View (pa\E\lat) Ordered. EDMS 21:12 Aspirin 325 mg PO once ordered. br1 21:34 DIFFERENTIAL NO CHARGE Ordered. EDMS 21:34 PLATELET ESTIMATE Ordered. EDMS 22:18 Basic Metabolic Profile Reviewed. br1 22:18 CBC with Diff Reviewed. br1 22:18 Lactic Acid (Styles tube on ice) Reviewed. br1 22:18 LIVER PROFILE Reviewed. br1 22:18 Cardiac Injury Profile Reviewed. br1 22:18 Troponin Reviewed. br1 22:18 FT4&TSH PANEL Reviewed. br1 22:18 PLATELET ESTIMATE Reviewed. br1 22:26 BED REQUEST+ADM ordered. EDMS 22:32 vancomycin 1 grams IVPB once over 60 mins; dilute in 250mL of NS or D5W ordered. br1 22:32 Piperacillin-Tazobactam 3.375 grams IVPB once over 30 mins; dilute in 50mL of NS or D5W br1 ordered. 23:15 [facility] [place] was scanned into [employer] and attached to record. [facility] 23:15 Financial registration complete. gjb 02/12 00:15 NO ADDED SALT DIET ordered. EDMS 00:16 CARDIAC INJURY PROFILE Ordered. EDMS 00:16 CARDIAC INJURY PROFILE Ordered. EDMS 00:16 CARDIAC INJURY PROFILE Ordered. EDMS 00:16 LACTIC ACID LEVEL, LACTATE Ordered. EDMS 00:17 Admission / Observation Status ordered. EDMS 00:17 IRRADIATED PHERESIS PLATELETS Ordered. EDMS 00:19 ELECTROCARDIOGRAM ADULT ordered. EDMS 01:44 T-Sheet-- Draft Copy was scanned into [employer] and attached to record. hs2 09:37 ECG/EKG was scanned into [employer] and attached to record. gb Administered Medications: 02/11 21:41 Drug: Aspirin 325 mg [aspirin 325 mg tablet (1 tabs)] Route: PO; mlc 22:58 Drug: vancomycin 1 grams [vancomycin 1,000 mg intravenous injection] Route: IVPB; mlc Infused Over: 60 mins; Site: right antecubital; 02/12 00:19 Follow up: IV Status: Completed infusion; IV Intake: 250ml ko2 00:19 Drug: Piperacillin-Tazobactam 3.375 grams [piperacillin-tazobactam 3.375 gram ko2 intravenous solution] Route: IVPB; Infused Over: 30 mins; Site: right antecubital; Signatures: Dispatcher [employer] EDMS Nilsa Mann, RN RN Deidre Nguyen, Reg Reg gb Aria Humphrey, Atmospheric Scientist Unit ml3 Ja Meadows MD MD br1 Louise Louis RN RN mlc Beck, Gabriela b Ciara Ortega, Reg Reg hs2 Kristin Francisco RN ko2 The chart was reviewed and I authenticate all verbal orders and agree with the evaluation and treatment provided.Corrections: (The following items were deleted from the chart) 02/11 20:59 20:58 FT4&TSH PANEL+LAB ordered. EDMS EDMS : 20:58 LIVER PROFILE+LAB ordered. EDMS EDMS Attachments: 23:15 [facility] [place] Agreement [facility] 02/12 01:44 T-Sheet-- Draft Copy hs2 09:37 ECG/EKG Chart Complete MTDD
--- NOTE | 2016-02-15 02:18 | EDDOCDS ---
Nurse's Notes [facility] Name: Cheyanne Alexander Age: 65 yrs Sex: Female : 1950 Arrival Date: 02/12/2016 Time: 20:46 Bed 11 Private MD: Diagnosis: Fever, unspecified;Neutropenia Presentation: 02/11 20:50 Presenting complaint: EMS states: family called for delirium/fever. temp 101.9. pt mlc unable to answer simple questions. pt c/o substernal chest pain, triple bypass 3 months ago. 1x nitro given by EMS, pain resolved. hx of UTI, pt on day 7 of of cipro. hx of leukemia, finished chemo 2 weeks ago. takes aspirin daily. Adult Sepsis Screening: Patient has new or worsening altered mentation (1 point). Patient's respiratory rate is less than 22. Systolic blood pressure is greater than 100. Patient has a qSOFA score of 1- Negative Sepsis Screen. Suicide/Homicide risk assessment- the patient denies having any suicidal and/or homicidal ideations and does not present with any other emotional, behavioral or mental health complaints. Status: Patient is not a service order taker or dependent. Transition of care: patient was not received from another setting of care. 20:50 Acuity: NILAY Level 2 [facility] 20:50 Method Of Arrival: Ambulance [facility] Triage Assessment: 21:04 General: Appears in no apparent distress, comfortable, Behavior is cooperative, mlc pleasant. Pain: Location: epigastric area. The patient is triaged at the bedside. See Assessment in Nurses Notes section of ED record. Neurological: Level of Consciousness is awake, confused, obeys commands, Oriented to person, place. Cardiovascular: Chest pain is denied pt states she is having chest pains but is pointing to her abdomen when asked where the pain is.. Respiratory: Airway is patent Respiratory effort is even, unlabored, Respiratory pattern is regular. GI:. GI: Reports nausea, vomiting. Derm: Skin is pale. Historical: - Allergies: SULFA (SULFONAMIDES); - Home Meds: 1. Vitamin D2 50,000 unit oral cap 1 cap once wkly 2. Vitamin C 500 mg Oral tab 1 tab nightly 3. furosemide 20 mg Oral tab 1 tab once daily 4. lovastatin 40 mg Oral tab 1 tab nightly 5. Cipro 500 mg Oral tab 1 tab every 12 hours on day 7 of 14 6. prochlorperazine maleate 10 mg Oral tab 1 tab 3 times per day as needed 7. lorazepam 0.5 mg Oral tab every 6 hours as needed 8. alprazolam 0.25 mg Oral TbDL 0.5 tab every 6 hours as needed 9. carvedilol 3.125 mg oral tab 1 tab 2 times per day 10. oxycodone 5 mg Oral cap 1 cap every 4 hours aS needed 11. aspirin 81 mg Oral tab 1 tab once daily 12. Dulera 100-5 mcg/actuation inhalation HFAA 2 puffs 2 times per day as needed 13. Miralax 17 gram Oral pwpk 1 packet once daily 14. potassium chloride 10 mEq Oral cpER 2 caps once daily 15. pregabalin 50 mg Oral cap 1 cap twice a day - PMHx: Angina; Anxiety; CHF; Chronic kidney disease; COPD; hyperlipidemia; Hypertension; Myocardial infarction; Leukemia; - PSHx: Cataract Surgery- Bilateral; CABG; Tubal ligation; - Social history: Smoking status: Patient states former smoker of tobacco. No barriers to communication noted, The patient speaks fluent Liberian. - Family history: No immediate family members are acutely ill. - : The pt / caregiver states he / she is not on anticoagulants. Home medication list is obtained from the patient, [employer] import data, pill bottles. - Exposure Risk Screening:: None identified. Screenin:08 Screening information is obtained from the patient. Fall risk: At risk due to apparent mlc cognitive impairment. Assistance ADL's: Requires assistance with housework, assistance is provided by family members. Abuse/DV Screen: The patient / caregiver reports he/she is: not in a situation that causes fear, pain or injury. Nutritional screening: No deficits noted. Advance Directives: Currently, there is a health care proxy, Ajit Alexander, son and Lou Alexander, daughter. There is no active DNR order. home support is adequate. Assessment: 21:41 General: Appears in no apparent distress, comfortable, Behavior is cooperative, mlc pleasant. Neurological: Level of Consciousness is awake, confused, obeys commands, Oriented to person, place. Cardiovascular: Capillary refill < 3 seconds Heart tones S1 S2 present. Respiratory: Airway is patent Respiratory effort is even, unlabored, Respiratory pattern is regular, Breath sounds are clear bilaterally. Derm: Skin is pale. 22:34 Reassessment: Patient appears in no apparent distress at this time. pt attempted to mlc urinate on bedpan, unable to at this time. . 23:30 Reassessment: Patient appears in no apparent distress at this time. no changes since [facility] prior. resp easy/unlabored. . 02/12 00:15 General: Appears in no apparent distress, comfortable. General: antibiotics complete at [facility] this time. family at bedside. resp easy/unlabored. pt awake and obeys commands. . Pain: Denies pain. 01:14 General: Appears in no apparent distress, comfortable, Behavior is cooperative. mlc Neurological: Level of Consciousness is awake, confused, obeys commands, Oriented to person, place. Respiratory: Airway is patent Respiratory effort is even, unlabored, Respiratory pattern is regular. Vital Signs: 02/11 21:06 BP 168 / 76; Pulse 103; Resp 20; Temp 96.4(O); Pulse Ox 98% on R/A; Weight 50.8 kg (R); [facility] Height 5 ft. 1 in. (154.94 cm) (R); Pain 6/10; 21:08 Temp 100.9(O); mlc 21:16 Pulse 96 MON; Pulse Ox 100% ; mlc 21:16 BP 197 / 73 (auto/); mlc 21:31 BP 155 / 70 (auto/); mlc 21:31 Pulse 96 MON; Pulse Ox 98% ; mlc 22:33 BP 144 / 54 (man/); mlc 23:46 Pulse 96 MON; Pulse Ox 98% ; [facility] 02/12 00:12 Pulse 92 MON; Pulse Ox 97% ; mlc 00:34 Pulse 96 MON; Pulse Ox 99% ; mlc 00:46 BP 128 / 62 (man/); meagan 00:52 Pulse 98 MON; Pulse Ox 99% ; mlc 00:54 Temp 100.2(O); feb 01:14 BP 124 / 52; Pulse 95; Resp 18; Temp 99.9(O); Pulse Ox 98% on R/A; [facility] 02/11 21:06 Body Mass Index 21.16 (50.80 kg, 154.94 cm) [facility] Vitals: 02/11 21:04 Log In Time N/A - ambulance arrival. [facility] ED Course: 20:47 Patient visited by Vivek Blackwood PCA. kb5 20:47 Louise Louis,RN is Primary Nurse. kb5 20:47 Ja Meadows MD is Attending Physician. br1 20:47 Patient moved to Waiting kb5 20:47 Patient moved to 11 kb5 20:56 Triage Initiated mlc 20:58 Patient visited by Ja Meadows MD. br1 21:07 Pt greeted and oriented to ED. Patient advised of names of staff involved in care, jmv location of call serrato, wait times and NPO status. Patient has correct armband on for positive identification. Placed in gown. Bed in low position. Call light in reach. Side rails up X2. paper sealer on. Pulse ox on. NIBP on. 21:08 Patient visited by Nnamdi Del Rio PCA. jmv 21:08 EKG done. (by ED staff). Reviewed by Ja Meadows MD. jmv 21:16 Troponin Sent. mlc 21:16 Cardiac Injury Profile Sent. mlc 21:16 CBC with Diff Sent. mlc 21:16 Basic Metabolic Profile Sent. mlc 21:16 -Blood Culture Sent. mlc 21:16 Lactic Acid (Styles tube on ice) Sent. mlc 21:16 FT4&TSH PANEL Sent. mlc 21:16 LIVER PROFILE Sent. mlc 21:18 Patient visited by Ruth Key LPN. cp1 21:39 Notified attending ED physician of Critical lab value. Dr Meadows notified of WBC of 0.7 feb and platelet of 14. 21:41 PLATELET ESTIMATE Sent. mlc 21:41 DIFFERENTIAL NO CHARGE Sent. mlc 21:42 Patient visited by Louise Louis RN. mlc 21:51 Notified attending ED physician of Critical lab value. lactic acid of 2.[address] Meadows. 22:00 BLOOD CULTURES Sent. mlc 22:34 Uli Chung is Hospitalizing Provider. br1 22:35 Patient visited by Louise Louis RN. mlc 22:58 Maintain field IV. Dressing intact. Site clean & dry. Gauge & site: 20g right AC. mlc 22:58 Inserted saline lock: 22 gauge in right hand The patient tolerated the procedure well. mlc by Kisha Quinn RN. 23:15 [facility] Payment Agreement was scanned into [email or web address] and attached to record. gjb 23:51 Patient visited by Vivek Blackwood PCA. kb5 02/12 00:20 Patient visited by Kristin Francisco,SHORTY. ko2 00:46 Patient visited by Suad Contreras PCA. meagan 00:53 No procedures done that require assistance. mlc 00:54 The patient / caregiver is instructed regarding the plan of care and ED course. mlc 01:44 T-Sheet-- Draft Copy was scanned into [email or web address] and attached to record. hs2 09:37 ECG/EKG was scanned into [email or web address] and attached to record. gb Administered Medications: 02/11 21:41 Drug: Aspirin 325 mg [aspirin 325 mg tablet (1 tabs)] Route: PO; mlc 22:58 Drug: vancomycin 1 grams [vancomycin 1,000 mg intravenous injection] Route: IVPB; mlc Infused Over: 60 mins; Site: right antecubital; 02/12 00:19 Follow up: IV Status: Completed infusion; IV Intake: 250ml ko2 00:19 Drug: Piperacillin-Tazobactam 3.375 grams [piperacillin-tazobactam 3.375 gram ko2 intravenous solution] Route: IVPB; Infused Over: 30 mins; Site: right antecubital; Intake: 00:19 IV: 250.00ml; Total: 250.00ml. ko2 Order Results: Lab Order: Basic Metabolic Profile; SPEC'M 02/12/16 21:13 Test: GLUCOSE, FASTING; Value: 128; Range: 80-110; Abnormal: Above high normal; Units: MG/DL; Status: F Test: BLOOD UREA NITROGEN; Value: 14; Range: 7-18; Units: MG/DL; Status: F Test: CREATININE FOR GFR; Value: 1.40; Range: 0.55-1.02; Abnormal: Above high normal; Units: MG/DL; Status: F Test: GLOMERULAR FILTRATION RATE; Value: 39.9; Range: >45; Abnormal: Below low normal; Status: F Test: SODIUM LEVEL; Value: 141; Range: 136-145; Units: MEQ/L; Status: F Test: POTASSIUM SERUM; Value: 4.7; Range: 3.5-5.1; Abnormal: Delta; Units: MEQ/L; Status: F Test: CHLORIDE LEVEL; Value: 107; Range: 98-107; Units: MEQ/L; Status: F Test: CARBON DIOXIDE LEVEL; Value: 23; Range: 21-32; Units: MEQ/L; Status: F Test: ANION GAP; Value: 11; Range: 8-16; Units: MEQ/L; Status: F Test: CALCIUM LEVEL; Value: 8.0; Range: 8.8-10.2; Abnormal: Below low normal; Units: MG/DL; Status: F Test Note: ; Units are mL/min/1.73 m2 Chronic Kidney Disease Staging per NKF: Stage I & II GFR >=60 Normal to Mildly Decreased Stage III GFR 30-59 Moderately Decreased Stage IV GFR 15-29 Severely Decreased Stage V GFR <15 Very Little GFR Left ESRD GFR <15 on PLASTIC DIE MAKER APPRENTICE Lab Order: CBC with Diff; SPEC'M 02/12/16 21:13 Test: WHITE BLOOD COUNT; Value: 0.7; Range: 4.0-10.0; Abnormal: Critical Low; Units: K/mm3; Status: F Test: RED BLOOD COUNT; Value: 3.06; Range: 4.00-5.40; Abnormal: Below low normal; Units: M/mm3; Status: F Test: HEMOGLOBIN; Value: 9.1; Range: 12.0-16.0; Abnormal: Below low normal; Units: g/dl; Status: F Test: HEMATOCRIT; Value: 27.4; Range: 36.0-47.0; Abnormal: Below low normal; Units: %; Status: F Test: MEAN CORPUSCULAR VOLUME; Value: 89.4; Range: 80.0-96.0; Units: fl; Status: F Test: MEAN CORPUSCULAR HEMOGLOBIN; Value: 29.7; Range: 27.0-33.0; Units: pg; Status: F Test: MEAN CORPUSCULAR HGB CONC; Value: 33.3; Range: 32.0-36.5; Units: g/dl; Status: F Test: RED CELL DISTRIBUTION WIDTH; Value: 16.6; Range: 11.5-14.5; Abnormal: Above high normal; Units: %; Status: F Test: PLATELET COUNT, AUTOMATED; Value: 14; Range: 150-450; Abnormal: Critical Low; Units: k/mm3; Status: F Test: PLATELET ESTIMATE; Range: NORMAL; Status: I Test: NEUTROPHILS; Value: 3; Range: 35-75; Abnormal: Below low normal; Units: %; Status: F Test: LYMPHOCYTES; Value: 95; Range: 16-52; Abnormal: Above high normal; Units: %; Status: F Test: MONOCYTES; Value: 1; Range: 0-8; Units: %; Status: F Test: ATYPICAL LYMPH; Value: 1; Range: 0-5; Units: %; Status: F Test: ANISOCYTOSIS; Value: 1+; Status: F Lab Order: Cardiac Injury Profile; [facility] 02/12/16 21:13 Test: CPK CREATINE PHOSPHOKINASE; Value: 54; Range: 26-192; Units: U/L; Status: F Test: CK-MB VALUE MASS; Value: 1.0; Range: 0.0-3.6; Units: NG/ML; Status: F Test: MB/CK RELATIVE INDEX; Value: 1.85; Range: < OR =4; Status: F Test Note: ; DIAGNOSIS CRITERIA MMB ng/ml Relative Index (RI) NON-AMI < or = 5 N/A STYLES ZONE > 5 < or = 4 AMI > 5 > 4 Lab Order: Troponin; [facility] 02/12/16 21:13 Test: TROPONIN I; Value: < 0.02; Range: < 0.10; Units: NG/ML; Status: F Test Note: ; Troponin I Reference Interval for [employer] [facility] LOCI: 99th Percentile= 0.00-0.045 ng/ml Risk Stratification: <= 0.10 ng/ml Decreased Risk for Adverse Clinical Events. 0.10-1.50 ng/ml Increased Risk for Adverse Clinical Events. Evaluation of additional criterion and/or repeat testing in 2-6 hours is suggested to rule out myocardial damage. >= 1.50 ng/ml Indicative of Myocardial Injury. Lab Order: Lactic Acid (Styles tube on ice); [facility] 02/12/16 21:13 Test: LACTIC ACID LEVEL, LACTATE; Value: 2.1; Range: 0.4-2.0; Abnormal: Above high normal; Units: MMOL/L; Status: F Lab Order: FT4&TSH PANEL; [facility] 02/12/16 21:13 Test: THYROID STIMULATING HORMONE; Value: 0.867; Range: 0.358-3.740; Units: uIU/ML; Status: F Test: FREE T4; Value: 1.21; Range: 0.76-1.46; Units: NG/DL; Status: F Lab Order: LIVER PROFILE; SPEC'M 02/12/16 21:13 Test: AST/SGOT; Value: 17; Range: 15-37; Units: U/L; Status: F Test: ALT/SGPT; Value: 11; Range: 12-78; Abnormal: Below low normal; Units: U/L; Status: F Test: ALKALINE PHOSPHATASE; Value: 83; Range: 45-117; Units: U/L; Status: F Test: BILIRUBIN,TOTAL; Value: 1.1; Range: 0.2-1.0; Abnormal: Above high normal; Units: MG/DL; Status: F Test: BILIRUBIN,DIRECT; Value: 0.4; Range: 0.0-0.2; Abnormal: Above high normal; Units: MG/DL; Status: F Test: TOTAL PROTEIN; Value: 6.9; Range: 6.4-8.2; Units: GM/DL; Status: F Test: ALBUMIN; Value: 3.2; Range: 3.2-5.2; Units: GM/DL; Status: F Test: ALBUMIN/GLOBULIN RATIO; Value: 0.86; Range: 1.00-1.93; Abnormal: Below low normal; Status: F Lab Order: PLATELET ESTIMATE; SPEC'M 02/12/16 21:13 Test: PLATELET ESTIMATE; Value: MARKED DECREASE; Range: NORMAL; Status: F Outcome: 02/11 22:34 Decision to Hospitalize by Provider. br1 02/12 01:14 Discharge Assessment: Patient awake, alert and oriented x 3. No cognitive and/or mlc functional deficits noted. Patient verbalized understanding of disposition instructions. patient administered narcotics - no. The following High Risk Discharge criteria are identified: None. Admitted to PCU accompanied by nurse, accompanied by tech, via stretcher, on monitor, with chart. Condition: good Condition: stable. Admission hand-off: Report Faxed Fax receipt verified by Neema on PCU. Property :Personal belongings accompany Pt. 01:16 No special radiology studies were completed. [facility] 01:17 Patient left the ED. [facility] Signatures: Nilsa Mann RN RN jan Barnhardt, Gloria, Reg Reg gb [place], Vivek, MATCHBOOK MAKER MATCHBOOK MAKER kb5 Ja Meadows MD MD br1 Ruth Key,FITNESS AND WELLNESS COORDINATOR FITNESS AND WELLNESS COORDINATOR cp1 Ben, Suad, MATCHBOOK MAKER MATCHBOOK MAKER meagan Louise Louis,SHORTY ORO mlc Kristin Francisco RN RN ko2 Destiyn Ayala gjb Ciara Ortega, Reg Reg hs2 Nnamdi Del Rio, MATCHBOOK MAKER MATCHBOOK MAKER jmv Corrections: (The following items were deleted from the chart) 01:16 01:14 CT Study completed. mlc mlc Chart Complete MTDD
--- NOTE | 2016-02-15 02:18 | EDDOCDS ---
Physician Documentation [facility] Name: Cheyanne Alexander Age: 65 yrs Sex: Female : 1950 Arrival Date: 02/12/2016 Time: 20:46 Bed 11 Private MD: Disposition: 02/12/16 22:34 Hospitalization ordered by Uli Chung for Inpatient Admission. Preliminary diagnosis are Fever, unspecified, Neutropenia. - Bed requested for PCU. - Status is Inpatient Admission. mlc - Condition is Stable. - Problem is new. - Symptoms are unchanged. Historical: - Allergies: SULFA (SULFONAMIDES); - Home Meds: 1. Vitamin D2 50,000 unit oral cap 1 cap once wkly 2. Vitamin C 500 mg Oral tab 1 tab nightly 3. furosemide 20 mg Oral tab 1 tab once daily 4. lovastatin 40 mg Oral tab 1 tab nightly 5. Cipro 500 mg Oral tab 1 tab every 12 hours on day 7 of 6. prochlorperazine maleate 10 mg Oral tab 1 tab 3 times per day as needed 7. lorazepam 0.5 mg Oral tab every 6 hours as needed 8. alprazolam 0.25 mg Oral TbDL 0.5 tab every 6 hours as needed 9. carvedilol 3.125 mg oral tab 1 tab 2 times per day 10. oxycodone 5 mg Oral cap 1 cap every 4 hours aS needed 11. aspirin 81 mg Oral tab 1 tab once daily 12. Dulera 100-5 mcg/actuation inhalation HFAA 2 puffs 2 times per day as needed 13. Miralax 17 gram Oral pwpk 1 packet once daily 14. potassium chloride 10 mEq Oral cpER 2 caps once daily 15. pregabalin 50 mg Oral cap 1 cap twice a day - PMHx: Angina; Anxiety; CHF; Chronic kidney disease; COPD; hyperlipidemia; Hypertension; Myocardial infarction; Leukemia; - PSHx: Cataract Surgery- Bilateral; CABG; Tubal ligation; - Social history: Smoking status: Patient states former smoker of tobacco. No barriers to communication noted, The patient speaks fluent Ukrainian. - Family history: No immediate family members are acutely ill. - : The pt / caregiver states he / she is not on anticoagulants. Home medication list is obtained from the patient, [employer] import data, pill bottles. - Exposure Risk Screening:: None identified. Vital Signs: 02/11 21:06 BP 168 / 76; Pulse 103; Resp 20; Temp 96.4(O); Pulse Ox 98% on R/A; Weight 50.8 kg / jmv 111.99 lbs (R); Height 5 ft. 1 in. (154.94 cm) (R); Pain 6/10; 21:08 Temp 100.9(O); mlc 21:16 Pulse 96 MON; Pulse Ox 100% ; mlc 21:16 BP 197 / 73 (auto/); mlc 21:31 BP 155 / 70 (auto/); mlc 21:31 Pulse 96 MON; Pulse Ox 98% ; mlc 22:33 BP 144 / 54 (man/); mlc 23:46 Pulse 96 MON; Pulse Ox 98% ; mlc 02/12 00:12 Pulse 92 MON; Pulse Ox 97% ; mlc 00:34 Pulse 96 MON; Pulse Ox 99% ; mlc 00:46 BP 128 / 62 (man/); meagan 00:52 Pulse 98 MON; Pulse Ox 99% ; mlc 00:54 Temp 100.2(O); feb 01:14 BP 124 / 52; Pulse 95; Resp 18; Temp 99.9(O); Pulse Ox 98% on R/A; mlc 02/11 21:06 Body Mass Index 21.16 (50.80 kg, 154.94 cm) jmv MDM: 02/11 20:48 Maternal Child Nurse/Pulse Ox/q 30 min VS ordered. br1 20:48 IV Saline Lock ordered. br1 20:48 Rhythm Strip to chart ordered. br1 20:48 Undress patient appropriately for examination ordered. br1 20:49 Basic Metabolic Profile Ordered. EDMS 20:49 CBC with Diff Ordered. EDMS 20:49 Cardiac Injury Profile Ordered. EDMS 20:49 Troponin Ordered. EDMS 20:49 ECG WITH READING ER PHYS+CARDIAG ordered. EDMS 20:57 -Blood Culture (Adults Only), peripheral from different site, or from device/port/PICC br1 etc. if present ordered. 20:58 Lactic Acid (Styles tube on ice) Ordered. EDMS 20:58 -Blood Culture Ordered. EDMS 20:58 -Blood Culture (Adults Only), peripheral from different site, or from device/port/PICC ml3 etc. if present complete. 20:58 Urinalysis Ordered. EDMS 20:58 Urine Culture Ordered. EDMS 20:59 BLOOD CULTURES Ordered. EDMS 21:04 FT4&TSH PANEL Ordered. EDMS 21:04 LIVER PROFILE Ordered. EDMS 21:12 Chest, 2 View (pa\E\lat) Ordered. EDMS 21:12 Aspirin 325 mg PO once ordered. br1 21:34 DIFFERENTIAL NO CHARGE Ordered. EDMS 21:34 PLATELET ESTIMATE Ordered. EDMS 22:18 Basic Metabolic Profile Reviewed. br1 22:18 CBC with Diff Reviewed. br1 22:18 Lactic Acid (Styles tube on ice) Reviewed. br1 22:18 LIVER PROFILE Reviewed. br1 22:18 Cardiac Injury Profile Reviewed. br1 22:18 Troponin Reviewed. br1 22:18 FT4&TSH PANEL Reviewed. br1 22:18 PLATELET ESTIMATE Reviewed. br1 22:26 BED REQUEST+ADM ordered. EDMS 22:32 vancomycin 1 grams IVPB once over 60 mins; dilute in 250mL of NS or D5W ordered. br1 22:32 Piperacillin-Tazobactam 3.375 grams IVPB once over 30 mins; dilute in 50mL of NS or D5W br1 ordered. 23:15 [facility] Payment Agreement was scanned into [employer] and attached to record. [facility] 23:15 Financial registration complete. gjb 02/12 00:15 NO ADDED SALT DIET ordered. EDMS 00:16 CARDIAC INJURY PROFILE Ordered. EDMS 00:16 CARDIAC INJURY PROFILE Ordered. EDMS 00:16 CARDIAC INJURY PROFILE Ordered. EDMS 00:16 LACTIC ACID LEVEL, LACTATE Ordered. EDMS 00:17 Admission / Observation Status ordered. EDMS 00:17 IRRADIATED PHERESIS PLATELETS Ordered. EDMS 00:19 ELECTROCARDIOGRAM ADULT ordered. EDMS 01:44 T-Sheet-- Draft Copy was scanned into [employer] and attached to record. hs2 09:37 ECG/EKG was scanned into [employer] and attached to record. gb Administered Medications: 02/11 21:41 Drug: Aspirin 325 mg [aspirin 325 mg tablet (1 tabs)] Route: PO; mlc 22:58 Drug: vancomycin 1 grams [vancomycin 1,000 mg intravenous injection] Route: IVPB; mlc Infused Over: 60 mins; Site: right antecubital; 02/12 00:19 Follow up: IV Status: Completed infusion; IV Intake: 250ml ko2 00:19 Drug: Piperacillin-Tazobactam 3.375 grams [piperacillin-tazobactam 3.375 gram ko2 intravenous solution] Route: IVPB; Infused Over: 30 mins; Site: right antecubital; Signatures: Dispatcher [employer] EDMS Nilsa Mann, RN RN Deidre Nguyen, Reg Reg gb Aria Humphrey, [employer] ml3 Ja Meadows MD MD br1 Louise Louis RN RN mlc Beck, Gabriela b Ciara Ortega, Reg Reg hs2 Kristin Francisco RN ko2 The chart was reviewed and I authenticate all verbal orders and agree with the evaluation and treatment provided.Corrections: (The following items were deleted from the chart) 02/11 20:59 20:58 FT4&TSH PANEL+LAB ordered. EDMS EDMS : 20:58 LIVER PROFILE+LAB ordered. EDMS EDMS Attachments: 23:15 [facility] Payment Agreement [facility] 02/12 01:44 T-Sheet-- Draft Copy hs2 09:37 ECG/EKG Chart Complete MTDD
[2016-02-15] MEDS: MEROPENEM INJ 1 GM in D5W MINI-BAG PLUS 100 ML IV SCH ×2 (02:30→14:46)
[2016-02-15] MEDS: oxyCODONE 5MG TAB PO PRN ×4 (03:40→20:42)
[2016-02-15 04:00] VITALS: BP 157/70
[2016-02-15 06:12] LABS: ALBUMIN 2.6 GM/DL (3.2-5.2); ALBUMIN/GLOBULIN RATIO 0.72 (1.00-1.93); BILIRUBIN,TOTAL 1.3 MG/DL (0.2-1.0); CREATININE FOR GFR 1.1 MG/DL (0.55-1.02); GLOMERULAR FILTRATION RATE 52.7 (>45); MAGNESIUM LEVEL 2.1 MG/DL (1.8-2.4); POTASSIUM SERUM 3.5 MEQ/L (3.5-5.1); TOTAL PROTEIN 6.2 GM/DL (6.4-8.2)
[2016-02-15 06:14] LABS: MEAN CORPUSCULAR HEMOGLOBIN 30.4 pg (27.0-33.0); MEAN CORPUSCULAR VOLUME 84.6 fl (80.0-96.0)
[2016-02-15 06:16] LABS: WHITE BLOOD COUNT 0.6 K/mm3 (4.0-10.0)
[2016-02-15] MEDS: SUCRALFATE 1 GM TAB PO SCH ×4 (07:46→20:43)
[2016-02-15 08:00] VITALS: BP 134/61
[2016-02-15] MEDS: SENNA 8.6 MG TAB (SENOKOT) PO SCH ×2 (09:00→09:14)
[2016-02-15] MEDS: MIRALAX *UNIT DOSE* 17GM PACKET PO SCH ×2 (09:13→20:43)
[2016-02-15] MEDS: LORATADINE 10 MG TAB PO SCH (09:14)
[2016-02-15] MEDS: PANTOPRAZOLE 40MG TAB (PROTONIX) PO SCH ×2 (09:14→20:41)
[2016-02-15] MEDS: CARVedilol 3.125 MG TAB PO SCH ×2 (09:14→20:43)
[2016-02-15] MEDS: GI COCKTAIL 50ML BTL(HYOSCYAMINE/MAALOX/LIDOCAINE VISCOUS)(1:3:1) PO PRN ×2 (09:25→20:45)
--- NOTE | 2016-02-15 11:08 | PHACANCOPD ---
PHARMACY VANCOMYCIN DOSING Pt Demographics Demographics Patient Age:65 , Weight:55.800 , Gender: female Adjusted Body Weight Date: 02/13/16, Adjusted Body Weight: Kg Events Past 24 Hours Events Past 24 Hours: NO: Change in CrCl, Dialysis, Diuretic Therapy, Elevation in WBC, Fever, Other, Pending Diagnostics, Pending Procedures Vancomycin Vancomycin indication: UTI Vancomycin Target Ranges: 15-20 mcg/ml Vancomycin Load Y/N: Yes Load Dose Date Time Vancomycin Load Dose: 1g Date: 02/12/16 Time: 2300 Vancomycin Dose Date: 02/15/16. Current Vancomycin Dose: [750MG IV Q24H] Date: 02/13/16. Current Vancomycin Dose: [750 mg IV Q24H] Intermittent Dosing?: No Labs Labs Vital Signs Label Value Date Time Patient Temperature 98.2 degrees F 02/15/16 0800 Temperature Source Tympanic 02/15/16 0800 Patient Temperature 99.6 degrees F 02/15/16 0400 Temperature Source Tympanic 02/15/16 0400 Item Value Date Time White Blood Count 0.7 K/mm3 *L 02/14/16 1430 White Blood Count 0.6 K/mm3 *L 02/15/16 0532 Creatinine 1.24 MG/DL H 02/14/16 0508 Creatinine 1.10 MG/DL H 02/15/16 0532 Vancomycin Level Trough 14.0 UG/ML 02/15/16 1019 Micro Microbiology 02/12/16 Blood Culture - Preliminary, Resulted No Growth after 48 hours. All Specime... 02/12/16 Blood Culture - Preliminary, Resulted No Growth after 48 hours. All Specime... 02/14/16 Stool Occult Blood (VALARIE) - Final, Complete 02/13/16 Urine Culture - Final, Complete Creatinine Clearance Date:02/13/16. Estimated Creatinine Clearance: [~31.9 ml/min]. Pending Labs Vancomycin trough scheduled 02/15/16 @ 1000 Assessment and Plan Maintaining Current Dose?: Yes Reason for dose change: No Dose Change Pharmacist Note Pharmacist Note 02/14: Patient's trough came back at 14. Her urine culture came back with no growth, however her outpatient UTI culture grew Klebsiella pneumoniae. Patient is taking Meropenem for UTI as well. Her Kleb. pneumoniae is sensitive to meropenem. We will continue her Vancomycin 750mg IV q24h for now. We will continue to monitor and make adjustments as necessary. Date: 02/13/16. Pharmacist note: Day #1 Vancomycin initiated with a 1g loading dose followed by a maintenance regimen of 750 mg IV Q24H for the treatment of a UTI - aiming for a goal trough of 15-20 mcg/mL. The patient is currently neutropenic and mildly febrile. Scr is elevated at 1.40 with a baseline scr ~ 1.00. The patient has no PMH of MRSA or vanco use here at [facility]. Blood and urine cultures are currently pending. A trough is scheduled for 02/15/16 @ 1000. We will continue to monitor the patient and make further adjustments as needed. MATHEUS HOLLAND [facility] Feb 15, 2016 11:08
[2016-02-15] MEDS: VANCOMYCIN HCL 750 MG, VIAL MATE ADAPTER 1 EACH in D5W 250 ML IV SCH (11:40)
[2016-02-15 13:00] VITALS: BP 133/62
--- NOTE | 2016-02-15 16:30 | IPN ---
DATE: 02/15/2016 Time patient was seen was at 9:30. The patient was seen and examined at the bedside. No acute events overnight. The patient has been feeling better. The chest pain has been better also; she only has that with drinking water now. Per her, it is better with eating food. However, the son disagrees and believes that it is worse with food. Therefore, we have agreed to start the patient on a full liquid diet. Otherwise, the patient denies any trouble breathing. Denies any abdominal pain, any nausea, vomiting, any diarrhea or constipation, any trouble with urination. The patient denies any other current new complaints. PHYSICAL EXAMINATION: VITAL SIGNS: Temperature 98.2, pulse 82, respirations 18, blood pressure 134/61, oxygen was saturating at 97% on room air. GENERAL: The patient is a thin looking elderly female who was alert, awake, oriented times three, does not appear to be in distress, resting comfortably in his bed with the head elevated at 20 degrees. HEENT: Normocephalic, atraumatic. Extraocular motor intact. Mucosa moist. NECK: Supple. No neck lymphadenopathy. CARDIOVASCULAR: Regular rate and rhythm. S1, S2. No murmur. LUNGS: Clear to auscultation bilaterally. No wheezing, rales, or rhonchi. ABDOMEN: Positive bowel sounds. Soft, nontender, nondistended. No peritoneal signs. No ecchymosis. EXTREMITIES: No edema, clubbing or cyanosis. SKIN: Warm and dry. The patient still has some petechiae, has no change from the day prior. NEUROLOGIC: Cranial nerves II-XII intact. No focal neurologic deficit. LABORATORY DATA: WBC 0.6, hemoglobin 10.3, hematocrit 78.8 with a platelet count of 52 and MCV of 84.6. ESR was 66. Sodium 140, potassium 3.5, chloride 105, bicarbonate 25, BUN 16, creatinine 1.1, GFR 52.7 with a fasting glucose of 89, calcium 8, magnesium 2.1, total bilirubin 1.3, AST 6, ALT 10, alkaline phosphatase 64, CRP 11.7, total protein 6.2, albumin 2.6. Vancomycin trough level today is 14. Stool occult blood was negative from yesterday. Urine culture shows no growth after 2 days. Blood culture shows no growth after 3 days. No new imaging. ASSESSMENT AND PLAN: A 65-year-old female with a past medical history of anxiety, congestive heart failure (CHF), coronary artery disease, chronic obstructive pulmonary disease (COPD), history of myocardial infarction (NC), status post coronary artery bypass graft (CABG), hyperlipidemia, hypertension, myelodysplastic syndrome, presented with: 1. Fever. Etiology unknown. Possibly secondary to urinary tract infection versus neutropenic fever. Had chemotherapy 2 weeks ago versus esophagitis. The patient did receive ciprofloxacin outpatient for about a week due to Klebsiella urinary tract infection (UTI). In addition, Dr. Chung spoke to Dr. Barone on admission, recommended transferring the patient. However, patient's family refused. Will continue patient on vancomycin and meropenem. Urine culture was negative. Blood culture has been negative as well. The patient possibly does have some esophagitis due to painful swallowing. At this point, the patient is stable. Will downgrade patient to medical-surgical. 2. Sepsis. Likely secondary to urinary tract infection. Continue antibiotics. 3. Altered mental status secondary to septic encephalopathy. MRI of the head did not show any acute findings. The patient's mentality has improved as well. Continue to monitor. 4. Chest pain. Likely secondary to esophageal spasm versus esophagitis versus Trisha-Case tear versus peptic ulcer disease. At this point, the patient is on Protonix twice a day, Carafate as well as a gastrointestinal (GI) cocktail. Will start the patient on a full liquid diet today. The patient's fecal occult blood has been negative. 5. Myelodysplastic syndrome. Dr. Barone initially recommended transferring; however, the patient refused. The patient did also receive a transfusion of 2 units of irradiated RBCs and also 2 units of irradiated platelets. Currently the level has been trending down only slowly. Will continue to monitor and will transfuse if needed. 6. History of coronary artery disease, status post coronary artery bypass graft (CABG). Continue beta angelito and statin. 7. History of congestive heart failure, unknown ejection fraction. Continue to hold Lasix for now, and the patient does not have any peripheral edema currently. Continue to monitor. 8. Chronic kidney disease. Appears to be stable. Continue to monitor. 9. Deep vein thrombosis (DVT) prophylaxis with sequential compression device. No chemical prophylaxis needed due to thrombocytopenia. DISPOSITION: Continue antibiotics. Will downgrade the patient. The patient is fever-free since the day prior. The patient is DO NOT RESUSCITATE/DO NOT INTUBATE (DNR/DNI). The patient has been discussed with attending doctor, Dr. Chan. My preceptor for this patient encounter was Dr. Chan. The preceptor was physically present in the building during the encounter and was fully available. As needed, all aspects of the patient interview, examination, medical decision making process, and medical care plan development were reviewed and approved by the preceptor. The preceptor is aware and concurs with the plan as stated in the body of this note and will attest to such by his/her co-signature.
[2016-02-15] MEDS: FOLIC ACID 1 MG TAB PO SCH (20:41)
[2016-02-15] MEDS: SIMVASTATIN 40 MG TAB PO SCH (20:41)
[2016-02-15] MEDS: ASCORBIC ACID 500 MG TAB PO SCH (20:41)
[2016-02-15 22:00] VITALS: BP 133/63
[2016-02-16] MEDS: oxyCODONE 5MG TAB PO PRN ×5 (00:47→21:08)
[2016-02-16] MEDS: MEROPENEM INJ 1 GM in D5W MINI-BAG PLUS 100 ML IV SCH ×2 (02:36→14:03)
[2016-02-16 05:50] LABS: MEAN CORPUSCULAR HEMOGLOBIN 30.2 pg (27.0-33.0); MEAN CORPUSCULAR HGB CONC 35.3 g/dl (32.0-36.5); MEAN CORPUSCULAR VOLUME 85.6 fl (80.0-96.0); RED CELL DISTRIBUTION WIDTH 14.8 % (11.5-14.5)
[2016-02-16 05:51] LABS: WHITE BLOOD COUNT 0.6 K/mm3 (4.0-10.0)
[2016-02-16 05:55] LABS: INR 1.23
[2016-02-16 05:57] LABS: ALBUMIN 2.5 GM/DL (3.2-5.2); ALBUMIN/GLOBULIN RATIO 0.71 (1.00-1.93); ALKALINE PHOSPHATASE 62 U/L (45-117); ALT/SGPT < 6 U/L (12-78); ANION GAP 9 MEQ/L (8-16); AST/SGOT 6 U/L (15-37); BILIRUBIN,TOTAL 1.2 MG/DL (0.2-1.0); BLOOD UREA NITROGEN 14 MG/DL (7-18); CARBON DIOXIDE LEVEL 25 MEQ/L (21-32); CHLORIDE LEVEL 104 MEQ/L (98-107); CREATININE FOR GFR 1.12 MG/DL (0.55-1.02); GLOMERULAR FILTRATION RATE 51.7 (>45); GLUCOSE, FASTING 83 MG/DL (80-110); MAGNESIUM LEVEL 2.1 MG/DL (1.8-2.4); POTASSIUM SERUM 3.6 MEQ/L (3.5-5.1); SODIUM LEVEL 138 MEQ/L (136-145)
[2016-02-16 06:00] VITALS: BP 104/55
[2016-02-16] MEDS: ACETAMINOPHEN TAB 650MG DOSE (2X325MG) PO PRN (07:40)
[2016-02-16] MEDS: MIRALAX *UNIT DOSE* 17GM PACKET PO SCH ×2 (07:40→21:00)
[2016-02-16] MEDS: CARVedilol 3.125 MG TAB PO SCH ×2 (07:41→21:07)
[2016-02-16] MEDS: PANTOPRAZOLE 40MG TAB (PROTONIX) PO SCH ×2 (07:41→21:06)
[2016-02-16] MEDS: LORATADINE 10 MG TAB PO SCH (07:41)
[2016-02-16] MEDS: SUCRALFATE 1 GM TAB PO SCH ×4 (07:41→21:06)
[2016-02-16] MEDS: SENNA 8.6 MG TAB (SENOKOT) PO SCH (07:41)
[2016-02-16] MEDS: VANCOMYCIN HCL 750 MG, VIAL MATE ADAPTER 1 EACH in D5W 250 ML IV SCH (11:21)
--- NOTE | 2016-02-16 12:43 | IPN ---
DATE: 02/16/2016 Patient was seen today at around 8:30 a.m. Patient has been seen and examined at bedside. No acute events overnight. Patient no longer has a fever. Patient admits to mild chest pain when she eats or drinks, however it has much improved compared to the day prior. Otherwise, patient does not have any trouble breathing, any abdominal pains, any nausea, vomiting, diarrhea, constipation, or any problem with urination. Denies any bleeding anywhere. Denies any other current new complaints. PHYSICAL EXAMINATION: VITAL SIGNS: Temperature 98.9, pulse 77, respirations 18, blood pressure 104/55, oxygen saturating at 94% on room air. GENERAL: Patient is a thin-looking, elderly female, who was alert, awake, oriented times three, does not appear to be in distress, laying comfortably in bed with head elevated at 30 degrees. HEENT: Normocephalic, atraumatic. Extraocular motors intact. Mucous moist. NECK: Supple. No neck lymphadenopathy. CARDIOVASCULAR: Regular rate and rhythm. S1, S2. No murmurs, rubs, or gallops. LUNGS: Clear to auscultation bilaterally. No wheezing, rales, or rhonchi. ABDOMEN: Positive bowel sounds. Soft, nontender, nondistended. No peritoneal signs. No ecchymosis. EXTREMITIES: No edema, clubbing, or cyanosis. SKIN: Old petechiae, there were no petechiae noted. No new bruising noted. NEUROLOGIC: Cranial nerves II-XII intact. No focal neurological deficit. LABORATORY DATA: WBC 0.6, hemoglobin 9.5, hematocrit 27, with a platelet count of 42, worsening compared to day prior which was 52, MCV was 85.6, ESR today was slightly elevated at 71, CRP however has reduced from 11.7 to 9.38, sodium 138, potassium 3.6, chloride 104, bicarbonate 25, BUN 14, creatinine 1.12, GFR 51.7, fasting glucose 83, albumin level today is 2.5, total protein 6, PT 15.6, INR 1.23, PTT 43.5. Occult blood was negative 2 days ago. ASSESSMENT AND PLAN: 65-year-old female with past medical history of anxiety, congestive heart failure (CHF), coronary artery disease, chronic obstructive pulmonary disease (COPD), history of myocardial infarction (PR) status post coronary artery bypass graft (CABG), hyperlipidemia, hypertension, myelodysplastic syndrome, presented with: 1. Fever. Etiology unknown, possibly secondary to urinary tract infection (UTI) versus neutropenic fever versus esophagitis. Patient did receive Cipro for urinary tract infection (UTI) outpatient 1 week before presentation. In addition, patient had chemotherapy 2 weeks prior. Also, patient's family refused transferring initially. Will continue vancomycin and meropenem. Urine culture and blood culture so far have been negative. 2. Altered mental status, likely secondary to septic encephalopathy. Improved. MRI did not show any acute findings. 3. Sepsis, likely secondary to urinary tract infection (UTI). Continue antibiotics. 4. Chest pain, likely secondary to esophageal spasms versus esophagitis versus Trisha-Case tear versus peptic ulcer disease. At this point it has improved with gastrointestinal (GI) cocktail, Protonix twice a day, and also Carafate. Patient has a negative fecal occult blood and has been placed on full liquid diet. 5. Hypoalbuminemia. Will supplement patient with Ensure. 6. Myelodysplastic syndrome. Dr. Barone initially recommended transferring, however patient's family refused. Patient is status post 2 units of irradiated red blood cells (RBCs), also 2 units of irradiated platelets. Patient's platelets have been trending down slowly, will possibly need a transfusion again tomorrow if it is less than 20,000. 7. History of coronary artery disease status post coronary artery bypass graft (CABG). Continue beta angelito and statin. 8. History of congestive heart failure (CHF). Unknown ejection fraction. Continue to hold Lasix. Currently no signs of peripheral edema. Patient's blood pressure has been soft as well. 9. Chronic kidney disease. Appears to be stable. Continue to monitor. 10. Deep venous thrombosis (DVT) prophylaxis with sequential compression device (SCD) alone. No chemical prophylaxis due to thrombocytopenia. DISPOSITION: Continue intravenous (IV) antibiotics. Patient's symptoms have improved significantly. Patient's platelets have continued to trend down. Will transfuse if needed. Patient is DO NOT RESUSCITATE/DO NOT INTUBATE. Patient has been discussed with attending doctor, Dr. Jailyn Chan. My preceptor for this patient encounter was Dr. Jailyn Chan. The preceptor was physically present in the building during the encounter and was fully available. As needed, all aspects of the patient interview, examination, medical decision making process, and medical care plan development were reviewed and approved by the preceptor. The preceptor is aware and concurs with the plan as stated in the body of this note and will attest to such by his cosignature.
[2016-02-16 14:00] VITALS: BP 143/67
[2016-02-16] MEDS: GI COCKTAIL 50ML BTL(HYOSCYAMINE/MAALOX/LIDOCAINE VISCOUS)(1:3:1) PO PRN (18:03)
[2016-02-16] MEDS: FOLIC ACID 1 MG TAB PO SCH (21:06)
[2016-02-16] MEDS: ASCORBIC ACID 500 MG TAB PO SCH (21:07)
[2016-02-16] MEDS: SIMVASTATIN 40 MG TAB PO SCH (21:07)
[2016-02-16 22:00] VITALS: BP 105/61
[2016-02-17] MEDS: MEROPENEM INJ 1 GM in D5W MINI-BAG PLUS 100 ML IV SCH ×2 (01:29→13:20)
[2016-02-17] MEDS: oxyCODONE 5MG TAB PO PRN ×3 (04:09→15:02)
[2016-02-17] MEDS: ONDANSETRON 4MG/2ML VIAL (J2405) IV PRN (04:09)
[2016-02-17 06:00] VITALS: BP 116/58
[2016-02-17 06:22] LABS: INR 1.31
[2016-02-17 06:33] LABS: ALBUMIN 2.6 GM/DL (3.2-5.2); ALBUMIN/GLOBULIN RATIO 0.65 (1.00-1.93); ALKALINE PHOSPHATASE 66 U/L (45-117); ALT/SGPT < 6 U/L (12-78); ANION GAP 12 MEQ/L (8-16); AST/SGOT 7 U/L (15-37); BILIRUBIN,TOTAL 1.4 MG/DL (0.2-1.0); BLOOD UREA NITROGEN 14 MG/DL (7-18); CALCIUM LEVEL 8.3 MG/DL (8.8-10.2); CARBON DIOXIDE LEVEL 24 MEQ/L (21-32); CHLORIDE LEVEL 101 MEQ/L (98-107); CREATININE FOR GFR 1.14 MG/DL (0.55-1.02); GLOMERULAR FILTRATION RATE 50.6 (>45); GLUCOSE, FASTING 94 MG/DL (80-110); POTASSIUM SERUM 3.4 MEQ/L (3.5-5.1); SODIUM LEVEL 137 MEQ/L (136-145); TOTAL PROTEIN 6.6 GM/DL (6.4-8.2)
[2016-02-17 06:56] LABS: MEAN CORPUSCULAR HEMOGLOBIN 29.4 pg (27.0-33.0); MEAN CORPUSCULAR HGB CONC 33.3 g/dl (32.0-36.5); MEAN CORPUSCULAR VOLUME 88.4 fl (80.0-96.0); RED CELL DISTRIBUTION WIDTH 15.8 % (11.5-14.5)
[2016-02-17 06:58] LABS: WHITE BLOOD COUNT 0.6 K/mm3 (4.0-10.0)
[2016-02-17] MEDS: LORATADINE 10 MG TAB PO SCH (08:40)
[2016-02-17] MEDS: SUCRALFATE 1 GM TAB PO SCH ×4 (08:40→20:46)
[2016-02-17] MEDS: CARVedilol 3.125 MG TAB PO SCH ×2 (08:41→20:47)
[2016-02-17] MEDS: PANTOPRAZOLE 40MG TAB (PROTONIX) PO SCH ×2 (08:41→20:46)
[2016-02-17] MEDS: MIRALAX *UNIT DOSE* 17GM PACKET PO SCH ×2 (08:41→20:47)
[2016-02-17] MEDS: SENNA 8.6 MG TAB (SENOKOT) PO SCH (08:41)
[2016-02-17] MEDS: VANCOMYCIN HCL 750 MG, VIAL MATE ADAPTER 1 EACH in D5W 250 ML IV SCH (10:36)
[2016-02-17 14:00] VITALS: BP 137/63
[2016-02-17] MEDS: LACTOBACILLUS ACIDOPHILUS CAP (BACID) PO SCH ×2 (15:02→20:46)
[2016-02-17] MEDS: ASCORBIC ACID 500 MG TAB PO SCH (20:46)
[2016-02-17] MEDS: FOLIC ACID 1 MG TAB PO SCH (20:46)
[2016-02-17] MEDS: SIMVASTATIN 40 MG TAB PO SCH (20:46)
[2016-02-17 22:00] VITALS: BP 129/58
[2016-02-18] MEDS: MEROPENEM INJ 1 GM in D5W MINI-BAG PLUS 100 ML IV SCH ×2 (01:37→14:05)
[2016-02-18 06:00] VITALS: BP 150/70
[2016-02-18 07:09] LABS: MEAN CORPUSCULAR HEMOGLOBIN 30.6 pg (27.0-33.0); MEAN CORPUSCULAR HGB CONC 34.7 g/dl (32.0-36.5); MEAN CORPUSCULAR VOLUME 88.3 fl (80.0-96.0)
[2016-02-18 07:11] LABS: INR 1.31; WHITE BLOOD COUNT 0.5 K/mm3 (4.0-10.0)
[2016-02-18 07:25] LABS: ALBUMIN 2.3 GM/DL (3.2-5.2); ALBUMIN/GLOBULIN RATIO 0.55 (1.00-1.93); BILIRUBIN,TOTAL 1.3 MG/DL (0.2-1.0); CREATININE FOR GFR 1.08 MG/DL (0.55-1.02); GLOMERULAR FILTRATION RATE 53.9 (>45); POTASSIUM SERUM 3.2 MEQ/L (3.5-5.1); TOTAL PROTEIN 6.5 GM/DL (6.4-8.2)
[2016-02-18] MEDS: LORATADINE 10 MG TAB PO SCH (08:09)
[2016-02-18] MEDS: LACTOBACILLUS ACIDOPHILUS CAP (BACID) PO SCH ×3 (08:09→20:55)
[2016-02-18] MEDS: POTASSIUM CHLORIDE 10 MEQ SR TABLET PO SCH ×2 (08:09→11:14)
[2016-02-18] MEDS: PANTOPRAZOLE 40MG TAB (PROTONIX) PO SCH ×2 (08:09→20:56)
[2016-02-18] MEDS: SUCRALFATE 1 GM TAB PO SCH ×4 (08:09→20:54)
[2016-02-18] MEDS: CARVedilol 3.125 MG TAB PO SCH ×2 (08:09→20:56)
[2016-02-18] MEDS ORDERED: DIAPER RELIEF OINT (DESITIN) 60GM TOP SCH (10:00)
--- NOTE | 2016-02-18 10:15 | IPN ---
DATE: 02/17/2016 SUBJECTIVE: The patient is seen and examined in the room today. The patient is alert, awake. The patient has a good appetite. The patient does not have any fever or chills. Does not have any respiratory distress. Denies any issue with urination. However, the patient does complain about increased watery diarrhea since this morning and the patient already has multiple bowel movements in the last few hours, which is not normal for her. OBJECTIVE: VITAL SIGNS: Temperature is 99.2, pulse is 96, respiratory rate 22, blood pressure is 137/63, pulse oxygen is 96% on room air. GENERAL: No sign of acute distress. Alert and oriented times three. HEENT: Normocephalic, atraumatic. Extraocular motors grossly intact. CARDIOVASCULAR: Positive S1, S2. Regular rate. LUNGS: Clear to auscultation bilaterally. No wheezes or rhonchi. ABDOMEN: Soft, nontender, nondistended. Bowel sounds present. No rebound or guarding. EXTREMITIES: No edema. No cyanosis. No calf tenderness. LABORATORY DATA : WBC is 0.6, hemoglobin 9.8, hematocrit 29.3, platelet count is 241. Sodium is 137, potassium 3.4, chloride is 101, carbon dioxide 24, BUN 14, creatinine 1.14, GFR is 50.6, fasting glucose is 94, calcium is 8.3, magnesium 2.0, total bilirubin 1.4, AST 7, ALT is 6, alkaline phosphatase 66, total protein 6.6, albumin is 2.6. INR is 1.31. ASSESSMENT AND PLAN: 1. Pancytopenia secondary to chemotherapy. The patient received irradiated packed red blood cell transfusion and irradiated platelets previously. In the past 24 to 48 hours, the patient's hemoglobin and hematocrit and platelet count did not show a significant drop. No sign of active bleeding at this moment. No blood transfusion is needed at this point. 2. Neutropenic fever. The patient has been on broad spectrum empiric antibiotic with vancomycin and meropenem. The patient continues to have intermittent low grade temperature greater than 99 degrees intermittently. The patient never has a temperature greater than 100.4 since 02/14/2016. 3. Diarrhea. The patient has been on vancomycin and meropenem for 3 to 4 days. Currently, the patient has watery diarrhea and we will followup with Clostridium (C.) difficile PCR. 4. History of myelodysplastic syndrome. The patient was seeing Dr. Barone in the outpatient setting. The patient had chemotherapy about 2 weeks prior to admission. 5. History of coronary artery disease, status post bypass graft. Currently on beta angelito and statin. 6. History of epigastric pain. Most significant during oral intake. The patient was given a GI cocktail, proton pump inhibitor and Carafate. The patient's symptoms are controlled. No blood per rectum. No bloody vomit. 7. History of congestive heart failure (CHF). Currently no sign of decompensation. 8. Chronic kidney disease. 9. Deep vein thrombosis (DVT) prophylaxis due to thrombocytopenia. The patient is on TEDs, sequentials and compression device.
--- NOTE | 2016-02-18 10:20 | REP ---
Clinical: Abdominal pain. Comparison: None. Findings: Lung bases demonstrate chronic interstitial changes along with moderate hiatal hernia and no evidence for cardiomegaly. Liver, spleen, pancreas, partially collapsed gallbladder and bilateral adrenal glands are normal for noncontrast evaluation. Left kidney is atrophic; right kidney demonstrates compensatory enlargement without nephrolithiasis or hydronephrosis. Mild symmetric chronic perinephric stranding is suggested. The enteric system is without obstruction or acute inflammatory process. Normal terminal ileum and appendix are identified in the right lower quadrant. No significant diverticulosis or diverticulitis. Evaluation of the pelvis demonstrates distended bladder. Uterus and adnexa appear normal for age and grossly unremarkable. No pelvic fluid or ascites. No adenopathy. No free air. The sclerotic changes of the aorta and vasculature noted without aneurysm. Surrounding musculoskeletal structures demonstrate degenerative change without focal osseous abnormality. Impression: 1. Distended urinary bladder. 2. Atrophic left kidney with compensatory enlargement of the right kidney and mild symmetric likely chronic perinephric stranding. Consider urinalysis to exclude pyelonephritis. 3. Chronic-appearing changes as described above. No evidence for acute intra-abdominal or pelvic pathology noted. Signed by Bandar Curran MD 02/18/2016 10:13 A
[2016-02-18] MEDS: VANCOMYCIN HCL 750 MG, VIAL MATE ADAPTER 1 EACH in D5W 250 ML IV SCH (11:14)
--- NOTE | 2016-02-18 11:40 | PHACANCOPD ---
PHARMACY VANCOMYCIN DOSING Pt Demographics Demographics Patient Age:65 , Weight:53.400 , Gender: female Adjusted Body Weight Date: 02/13/16, Adjusted Body Weight: Kg Events Past 24 Hours Events Past 24 Hours: YES: Fever, Pending Diagnostics (New urine culture order) Vancomycin Vancomycin indication: UTI Vancomycin Target Ranges: 15-20 mcg/ml Vancomycin Load Y/N: Yes Load Dose Date Time Vancomycin Load Dose: 1g Date: 02/12/16 Time: 2300 Vancomycin Dose Date: 02/18/16. Current Vancomycin Dose: [750mg IV Q24H] Date: 02/15/16. Current Vancomycin Dose: [750MG IV Q24H] Date: 02/13/16. Current Vancomycin Dose: [750 mg IV Q24H] Intermittent Dosing?: No Labs Labs Item Value Date Time White Blood Count 0.6 K/mm3 *L 02/17/16 0547 White Blood Count 0.5 K/mm3 *L 02/18/16 0623 Creatinine 1.14 MG/DL H 02/17/16 0547 Creatinine 1.08 MG/DL H 02/18/16 0623 Vancomycin Level Trough 14.0 UG/ML 02/15/16 1019 Vancomycin Level Trough 16.5 UG/ML 02/18/16 1029 Vital Signs Label Value Date Time Patient Temperature 99.7 degrees F 02/17/16 2200 Temperature Source Tympanic 02/17/16 2200 Patient Temperature 99.7 degrees F 02/18/16 0600 Temperature Source Tympanic 02/18/16 0600 Micro Microbiology 02/12/16 Blood Culture - Final, Complete NO GROWTH AFTER 5 DAYS 02/12/16 Blood Culture - Final, Complete NO GROWTH AFTER 5 DAYS 02/14/16 Stool Occult Blood (VALARIE) - Final, Complete 02/13/16 Urine Culture - Final, Complete Creatinine Clearance Date:02/13/16. Estimated Creatinine Clearance: [~31.9 ml/min]. Pending Labs Vancomycin trough scheduled 02/15/16 @ 1000 Assessment and Plan Maintaining Current Dose?: Yes Reason for dose change: No Dose Change Pharmacist Note Pharmacist Note 02/17: Patient's Trough came back at 16.5mcg/ml. A CT of her abdomen revealed a distended bladder and a urinalysis is ordered. She continues to have an elevated fever temperature around 99 degrees. Vancomycin 750mg q24h will be continue and the patient will continued to be monitored and adjusted as needed. 02/14: Patient's trough came back at 14. Her urine culture came back with no growth, however her outpatient UTI culture grew Klebsiella pneumoniae. Patient is taking Meropenem for UTI as well. Her Kleb. pneumoniae is sensitive to meropenem. We will continue her Vancomycin 750mg IV q24h for now. We will continue to monitor and make adjustments as necessary. Date: 02/13/16. Pharmacist note: Day #1 Vancomycin initiated with a 1g loading dose followed by a maintenance regimen of 750 mg IV Q24H for the treatment of a UTI - aiming for a goal trough of 15-20 mcg/mL. The patient is currently neutropenic and mildly febrile. Scr is elevated at 1.40 with a baseline scr ~ 1.00. The patient has no PMH of MRSA or vanco use here at [facility]. Blood and urine cultures are currently pending. A trough is scheduled for 02/15/16 @ 1000. We will continue to monitor the patient and make further adjustments as needed. JESS MARSHALL PHARMACY Feb 18, 2016 11:40
--- NOTE | 2016-02-18 12:35 | IPN ---
DATE: 02/18/2016 Time patient was seen was this morning at 9 a.m. Patient has been seen and examined at bedside. No acute events overnight. Patient, however, did have increased number of loose stools yesterday, according to our record she had 18 bowel movements, according to some it was more gel-like. Patient also complained of a moderate lower abdominal pain and it is worse upon movement. Otherwise, patient denies any fever or chills, any chest pain, trouble breathing, abdominal pains, nausea, vomiting, or constipation. Patient denies any problem with urination. Denies any other current new complaints. PHYSICAL EXAMINATION: VITAL SIGNS: Temperature 99.7, pulse 90, respirations 17, blood pressure 150/70, oxygen saturating at 97% on room air. GENERAL: Patient is a pleasant, elderly female, who was alert, awake, oriented times three. Appears to be mildly distressed. Laying comfortably in left lateral decubitus position. HEENT: Normocephalic, atraumatic. Extraocular motors intact. Mucous moist. NECK: Supple. No neck lymphadenopathy. CARDIOVASCULAR: Regular rate and rhythm. S1, S2. No murmurs, rubs, or gallops. LUNGS: Clear to auscultation bilaterally. No wheezes, rales, or rhonchi. ABDOMEN: Positive bowel sounds. Soft. Mildly tender to palpation in the lower abdomen. EXTREMITIES: No edema, clubbing, or cyanosis. SKIN: Warm and dry. Patient still has a slight amount of petechiae on the skin, much improved from days prior. NEUROLOGIC: Cranial nerves II-XII intact. No focal neurological deficit. LABORATORY DATA: WBC 0.5, hemoglobin 9.3, hematocrit 26.8, with a platelet count of 42, stable compared to day prior at 41, MCV was 88.3. Sodium 138, potassium 3.2, chloride 101, bicarbonate 26, BUN 12, creatinine 1.08, glucose 84, calcium 8, magnesium 3, total bilirubin 1.3, AST 6, ALT 6, alkaline phosphatase 65, CRP was elevated compared to 2 days ago, today is 14.4, total protein 6.5, albumin 2.3. PT 16.4, INR 1.31, PTT 45.9. No new cultures. Patient did have a stat CT of abdomen and pelvis today without contrast, shows distended urinary bladder, however, there was also atrophic left kidney with compensatory enlargement of the right kidney and mild symmetric, likely chronic perinephric stranding. Consider urinalysis to exclude pyelonephritis. Patient also has chronic appearing changes as stated above. No evidence of acute intra-abdominal or pelvic pathology noted. ASSESSMENT AND PLAN: 65-year-old female with past medical history of anxiety, congestive heart failure (CHF), coronary artery disease status post coronary artery bypass graft (CABG), chronic obstructive pulmonary disease (COPD), hyperlipidemia, hypertension, myelodysplastic syndrome, presented with: 1. Fever, unknown etiology, possibly secondary to urinary tract infection (UTI) versus neutropenic fever versus esophagitis. Patient did receive Cipro for urinary tract infection outpatient 1 week prior to presentation. In addition, patient had chemotherapy 2 weeks prior to admission also. Patient has been fever free for the past 3 days. Initially, Dr. Barone recommended to transfer patient, however patient's family refused. Will continue patient on vancomycin and meropenem. Urine culture and blood culture so far have been negative. 2. Increased bowel movements with gel-like stools and also lower abdominal pain, possibly secondary to Clostridium (C) difficile versus side effect from antibiotics. Clostridium (C) difficile polymerase chain reaction (PCR) has been ordered, result is pending. CT of abdomen and pelvis did not show any colitis, however it does show paranephric stranding, recommending urinalysis, it has been ordered, result pending. 3. Altered mental status, possibly secondary to septic encephalopathy, improved. MRI did not show any acute findings. 4. Sepsis, possibly secondary to urinary tract infection (UTI). Continue antibiotics, meropenem and vancomycin. 5. Chest pain, likely secondary to esophageal spasms versus esophagitis versus Trisha-Case tear versus peptic ulcer disease. It has resolved today. Will continue patient on as needed gastrointestinal (GI) cocktail. Will reduce Protonix to once daily due to possible Clostridium (C) difficile and will continue Carafate for now. Patient did also have a negative fecal occult blood. Patient has been placed on full liquid diet and tolerating it well. 6. Hypoalbuminemia. Continue supplement with Ensure. 7. Myelod[address] syndrome. Dr. Barone initially recommended transfer with admission physician, however patient's family refused. Patient is status post 2 units of irradiated red blood cells (RBCs) and also two units of irradiated platelets. So far platelets and hemoglobin have been stable. Will continue to monitor. Will possibly transfuse again if platelets go down less than 20,000. 8. History of coronary artery disease status post myocardial infarction (NH) and coronary artery bypass graft (CABG). Continue beta angelito and statin. 9. History of congestive heart failure (CHF) with unknown ejection fraction. Currently will continue to hold Lasix due to no signs of lower extremity edema. Blood pressure has been soft as well. 10. Chronic kidney disease. Appears to be stable. Continue to monitor. 11. Deep venous thrombosis (DVT) prophylaxis. Continue sequential compression device (SCD). No chemical prophylaxis due to thrombocytopenia. DISPOSITION: Continue intravenous (IV) antibiotics for now. Will consider switching antibiotics if patient has Clostridium (C) difficile or if patient's diarrhea does not improve. Patient is DO NOT RESUSCITATE/DO NOT INTUBATE. Patient has been discussed with attending doctor, Dr. Chan. My preceptor for this patient encounter was Dr. Jailyn Chan. The preceptor was physically present in the building during the encounter and was fully available. As needed, all aspects of the patient interview, examination, medical decision making process, and medical care plan development were reviewed and approved by the preceptor. The preceptor is aware and concurs with the plan as stated in the body of this note and will attest to such by his cosignature.
[2016-02-18] MEDS: GI COCKTAIL 50ML BTL(HYOSCYAMINE/MAALOX/LIDOCAINE VISCOUS)(1:3:1) PO PRN (13:24)
[2016-02-18] MEDS: oxyCODONE 5MG TAB PO PRN ×2 (13:24→20:55)
[2016-02-18 14:00] VITALS: BP 117/58
[2016-02-18] MEDS: ASCORBIC ACID 500 MG TAB PO SCH (20:56)
[2016-02-18] MEDS: FOLIC ACID 1 MG TAB PO SCH (20:56)
[2016-02-18] MEDS: SIMVASTATIN 40 MG TAB PO SCH (20:56)
[2016-02-18 22:00] VITALS: BP 112/59
[2016-02-19] MEDS: MEROPENEM INJ 1 GM in D5W MINI-BAG PLUS 100 ML IV SCH ×2 (01:25→15:59)
[2016-02-19 06:00] VITALS: BP 95/52
[2016-02-19 06:55] LABS: MEAN CORPUSCULAR HEMOGLOBIN 30.6 pg (27.0-33.0); MEAN CORPUSCULAR HGB CONC 33.9 g/dl (32.0-36.5); MEAN CORPUSCULAR VOLUME 90.1 fl (80.0-96.0); RED CELL DISTRIBUTION WIDTH 15.1 % (11.5-14.5)
[2016-02-19 06:57] LABS: WHITE BLOOD COUNT 0.5 K/mm3 (4.0-10.0)
[2016-02-19 07:28] LABS: ALBUMIN 2.3 GM/DL (3.2-5.2); ALBUMIN/GLOBULIN RATIO 0.53 (1.00-1.93); ALKALINE PHOSPHATASE 67 U/L (45-117); ALT/SGPT < 6 U/L (12-78); ANION GAP 8 MEQ/L (8-16); AST/SGOT 8 U/L (15-37); BILIRUBIN,TOTAL 1.3 MG/DL (0.2-1.0); BLOOD UREA NITROGEN 12 MG/DL (7-18); CALCIUM LEVEL 8.3 MG/DL (8.8-10.2); CARBON DIOXIDE LEVEL 24 MEQ/L (21-32); CHLORIDE LEVEL 104 MEQ/L (98-107); CREATININE FOR GFR 1.16 MG/DL (0.55-1.02); GLOMERULAR FILTRATION RATE 49.6 (>45); GLUCOSE, FASTING 95 MG/DL (80-110); MAGNESIUM LEVEL 2.1 MG/DL (1.8-2.4); POTASSIUM SERUM 4.5 MEQ/L (3.5-5.1); SODIUM LEVEL 136 MEQ/L (136-145); TOTAL PROTEIN 6.6 GM/DL (6.4-8.2)
[2016-02-19] MEDS: LACTOBACILLUS ACIDOPHILUS CAP (BACID) PO SCH ×3 (08:17→21:32)
[2016-02-19] MEDS: PANTOPRAZOLE 40MG TAB (PROTONIX) PO SCH ×2 (08:17→21:32)
[2016-02-19] MEDS: CARVedilol 3.125 MG TAB PO SCH ×2 (08:17→21:00)
[2016-02-19] MEDS: LORATADINE 10 MG TAB PO SCH (08:17)
[2016-02-19] MEDS: SUCRALFATE 1 GM TAB PO SCH ×4 (08:17→21:32)
[2016-02-19] MEDS: NS 1,000 ML IV SCH (11:06)
[2016-02-19] MEDS: VANCOMYCIN HCL 750 MG, VIAL MATE ADAPTER 1 EACH in D5W 250 ML IV SCH (11:06)
[2016-02-19] MEDS: oxyCODONE 5MG TAB PO PRN ×2 (11:12→21:33)
[2016-02-19] MEDS: ACETAMINOPHEN TAB 650MG DOSE (2X325MG) PO PRN (11:12)
[2016-02-19] MEDS ORDERED: GASTROGRAFIN SOLUTION 30ML PO ONE (12:00)
[2016-02-19] MEDS ORDERED: GASTROGRAFIN SOLUTION 30ML (Q9963) PO ONE (12:30)
[2016-02-19] MEDS ORDERED: ISOVUE-370 76% 100ML VIAL (Q9967) As Ordered ONE (13:16)
[2016-02-19 14:00] VITALS: BP 103/52
[2016-02-19] MEDS: FLUCONAZOLE 400 MG in APPROPRIATE DILUENT 1 EA IV SCH (14:09)
--- NOTE | 2016-02-19 15:02 | REP ---
CT STUDY OF THE BRAIN WITHOUT CONTRAST: HISTORY: Altered mental status. Neutropenic fever. Comparison CT study January 20, 2016. FINDINGS: No bony calvarial defect is seen. There is vascular calcification fairly extensively in the distal carotid and distal vertebral arteries bilaterally. There is mild diffuse cerebral atrophy. Styles-white differentiation pattern is normal above and below the tentorium. There is no evidence of intracranial hemorrhage, extra-axial fluid collection, mass, or midline shift. No change in comparison with the January 20, [address] findings. IMPRESSION: No acute intracranial abnormality. Mild diffuse atrophy and vascular calcification. Signed by Matthew Roque MD 02/19/2016 03:12 P
--- NOTE | 2016-02-19 15:12 | REP ---
CT abdomen and pelvis with IV and oral contrast: History: Neutropenic fever. Question infection. Comparison noncontrast CT study is from the previous day February 18, 2016. CT contrast dose: 100 ml of Isovue [address] findings: Preliminary mincing machine operator radiograph demonstrates large and small bowel air-fluid levels. The liver and spleen are normal in size and homogeneous in texture. No gallbladder abnormality is seen. Pancreas is unremarkable. There is an accessory splenule. No adrenal lesion is seen. There is a little mural thickening in the distal esophagus at the GE junction. Consider upper endoscopy. The left kidney is markedly atrophic with some distal vascular calcification. No hydronephrosis is seen on either side. Small and large intestinal bowel loops show no significant abnormality. The appendix is not separately identified but there is no inflammatory change near the cecum or ileocecal valve. The cecal tip is deep in the pelvis. The patient is status post hysterectomy. No obstructive lesion is seen. No abdominal wall defect is observed. No uterine or ovarian abnormality is seen. Impression: Mild ileus pattern in the bowel gas. Mural thickening at the GE junction, question early mass. Consider upper endoscopy. Moderate atrophy of the left kidney with some vascular calcification. Signed by Matthew Roque MD 02/19/2016 04:00 P
--- NOTE | 2016-02-19 15:18 | REP ---
CT STUDY OF THE CHEST WITH IV CONTRAST: HISTORY: Neutropenic fever. History of COPD. Previous of coronary artery bypass. CT contrast dose: 100 mL of Isovue [address] FINDINGS: There are emphysematous changes in the upper lobes bilaterally. Lung parenchymal window settings demonstrate multiple calcified granulomatous nodules in the lung parenchyma bilaterally. There are also several noncalcified parenchymal pulmonary nodules. The largest of these measures 6 mm. No larger nodule is seen. No hilar or mediastinal mass or adenopathy is observed. No filling defect is seen in the pulmonary arterial tree. Vascular calcification is noted. There is ingested oral contrast and air filling the mildly dilated thoracic esophagus. The esophagus is dilated all the way up to the thoracic inlet. There is mural contrast enhancement and/or mural thickening at the gastroesophageal junction. Question early esophageal mass. Consider endoscopic evaluation. No adrenal lesion is seen. No focal hepatic or splenic lesion is seen. There is a small accessory splenule. There is marked atrophy of the left kidney with vascular calcification. IMPRESSION: Chest CT study shows prior sternotomy. Vascular calcification. Dilated air and oral contrast filled esophagus question distal esophageal mass. Consider endoscopy. Multiple noncalcified and calcified pulmonary nodule seen. The largest of the noncalcified pulmonary nodules is 6 mm. 6-month followup chest CT study is suggested. Signed by Matthew Roque MD 02/19/2016 04:00 P
--- NOTE | 2016-02-19 18:21 | RO ---
DATE OF PROCEDURE: 02/19/2016 PREPROCEDURE DIAGNOSIS: Altered mental status. POSTPROCEDURE DIAGNOSIS: Altered mental status with neutropenic sepsis, neutropenic fever. OPERATIVE PROCEDURE: Diagnostic lumbar puncture. SURGEON: Deborah Burgess MD FINANCIAL AID ADVISOR: Fawad Arredondo MD SEDATION: None. ANESTHESIA: 1% local lidocaine. VENTILATION: Room air. ESTIMATED BLOOD LOSS: Minimal. OPENING PRESSURE: Not measured. POSITION: Left lateral decubitus position, in position. DESCRIPTION OF PROCEDURE: The patient was placed in left lateral decubitus position with knees to her chest and chin down in position. Site was initially examined locating the space between L4-5 with superior iliac crest as the landmark. Site was cleaned with Betadine three times and subsequently prepped in the sterile fashion. 1% lidocaine was first injected superficially then deeply. Subsequently, the needle was inserted and CSF fluid was obtained. Subsequently, the needle was removed. Band-aid was placed. The patient was instructed to lie on her back for the next four hours. The patient tolerated the procedure with no complications.
[2016-02-19 18:31] LABS: GLUCOSE CSF 58 MG/DL (40-75)
[2016-02-19 19:17] LABS: APPEARANCE, CSF CLEAR (CLEAR); COLOR, CSF COLORLESS (COLORLESS); CSF DIFF IF INDICATED? NO (NO); CSF TUBE# CELL CNT TUBE 1; RBC CSF AUTO 6 /mm3 (0-0); WBC CSF AUTO 3 /mm3 (0-10)
[2016-02-19 21:04] LABS: CSF DILUENT LOT # 6053
[2016-02-19] MEDS: FOLIC ACID 1 MG TAB PO SCH (21:32)
[2016-02-19] MEDS: ASCORBIC ACID 500 MG TAB PO SCH (21:32)
--- NOTE | 2016-02-19 21:56 | IPN ---
DATE: 02/19/2016 TIME PATIENT WAS SEEN: This morning at 9:30. Patient has been seen and examined at bedside. Patient had another episode of fever yesterday at 2 p.m. and also at 5:21 p.m. Also another fever of 101.5 at 11:13. Patient, herself, however, does not feel any chills. She denies any trouble breathing. Denies any abdominal pains, any nausea, vomiting, or any constipation. Patient continues to have loose stool and continues to have pain swallowing food; however, it is better with gastrointestinal (GI) cocktail. Otherwise, we have consulted hematology/oncology, Dr. Wright, to see the patient. PHYSICAL EXAMINATION: VITAL SIGNS: Temperature was 98.8, pulse 80, respirations 17, blood pressure was 95/52, and oxygen was saturating at 81% on room air. Patient had a temperature of 101.5 at 11:13. GENERAL: Patient is a pleasant, elderly female who was awake, alert, oriented times three. Does not appear to be in distress. Lying comfortable in bed with head elevated at 30 degrees. HEENT: Normocephalic, atraumatic. Extraocular motor intact. Mucosa moist. NECK: Supple. No neck lymphadenopathy. CARDIOVASCULAR: Regular rate and rhythm, S1, S2. No murmurs, rubs, or gallops. LUNGS: Clear to auscultation bilaterally. No wheezes, rales, or rhonchi. ABDOMEN: Positive bowel sounds, soft, nontender, nondistended. No peritoneal signs. No ecchymosis. EXTREMITIES: No edema, clubbing, or cyanosis. SKIN: Warm and dry. NEUROLOGIC: Cranial nerves II-XII intact. No focal neurological deficit. Patient , however, does have a slower mentation today. LABORATORY DATA: WBC 0.5, hemoglobin 9.6, hematocrit 28.3 with a platelet count of 48, improved from day prior, which was 42. Sodium 136, potassium 4.5, chloride 104, bicarbonate 24, BUN 12, creatinine 1.16 , GFR was 49.6, and fasting glucose 95, calcium 8.3, magnesium 2.1. Total bilirubin 1.3, AST 8, ALT less than 6, alkaline phosphatase 67, CRP 16,total protein 6.6, albumin 2.3. Blood cultures times two result pending. Clostridium (C) difficile study from yesterday has been negative. Patient is waiting for 1 unit or irradiated platelet transfusion today. No new imaging. ASSESSMENT AND PLAN: A 65-year-old female with past medical history of anxiety, congestive heart failure (CHF), coronary artery disease, status post coronary artery bypass graft (CABG), chronic obstructive pulmonary disease (COPD), hyperlipidemia, hypertension, myelodysplastic syndrome, presented with: 1. Fever, unknown etiology, possibly secondary to a urinary tract infection (UTI) versus neutropenic fever, versus esophagitis. Patient did receive Cipro for UTI outpatient one week prior to presentation and also chemotherapy 2 weeks prior to admission. Patient started having fever again yesterday and again today. Dr. Wright has been consulted. Will follow Dr. Wright's recommendation. At this point, due to recurrent fever, will panculture patient again and also obtain CT of chest and abdomen and also lumbar puncture as well as echocardiogram. 2. Increased bowel movements. Clostridium (C) difficile has been negative. Gastrointestinal (GI) panel has been ordered. Result pending. CT has been negative as well. Did show some perinephric stranding, however. 3. Altered mental status secondary to septic encephalopathy, improved. MRI did not show any acute findings. 4. Sepsis, possibly secondary to UTI. Continue to antibiotics, meropenem and vancomycin. 5. Chest pain likely secondary to esophageal spasm versus esophagitis versus Trisha-Case tear or peptic ulcer disease. Continue GI cocktail, Protonix, Carafate. Patient is fecal occult blood negative, however. Continue full liquid diet. 6. Hypoalbuminemia. Continue to supplement with Ensure. 7. Myelodysplastic syndrome. Dr. Ordaz initially recommended transferring patient to [place]; however, patient's family refused. Dr. Wright has been contact today and agreed to see the patient tomorrow. At this point, Dr. Wright does not believe Neupogen is indicated. Patient is also status post 2 units of PRBC and also platelets. Both are irradiated. 8. History of coronary artery disease, status post myocardial infarction (ME) and CABG. Continue beta angelito and statin. 9. History of CHF, unknown ejection fraction. Continue to hold Lasix due to no signs of lower extremity edema. 10. Chronic kidney disease, stable. Continue to monitor. 11. Deep vein thrombosis (DVT) prophylaxis, on sequential compression devices (SCD). No chemical prophylaxis due to thrombocytopenia. DISPOSITION: Patient will continue intravenous (IV) antibiotics. Will scan patient's chest and abdomen. Also will followup with echocardiogram and lumbar puncture due to patient had a new fever yesterday and also today. Patient is DO NOT RESUSCITATE/DO NOT INTUBATE. Patient has been discussed with attending doctor, Dr. Burgess. My preceptor for this patient encounter was Dr. Deborah Burgess. The preceptor was physically present in the building during the encounter and was fully available as needed. All aspects of the patient interview, examination, medical decision making process, and medical care plan development were reviewed and approved by the preceptor. The preceptor is aware and concurs with the plan as stated in the body of this note and will attest to such by his/her co-signature. I have both independently examined this patient as well as reviewed the note. I have discussed in detail with the resident the findings and plan of treatment as documented in the residents note. I will continue to follow the patient and offer further guidance to the patients care as necessary during this hospital stay. Deborah GRAMAJO
[2016-02-19 22:00] VITALS: BP 100/58
[2016-02-20] VITALS (7 sets, daily range): BP systolic 100–143; BP diastolic 50–65
[2016-02-20] MEDS: MEROPENEM INJ 1 GM in D5W MINI-BAG PLUS 100 ML IV SCH ×2 (02:26→17:04)
[2016-02-20] MEDS: NS 1,000 ML IV SCH (06:24)
[2016-02-20 07:08] LABS: DIFF SLIDE NUMBER 64; MEAN CORPUSCULAR HEMOGLOBIN 30.1 pg (27.0-33.0); MEAN CORPUSCULAR HGB CONC 33.5 g/dl (32.0-36.5); MEAN CORPUSCULAR VOLUME 89.9 fl (80.0-96.0); RED CELL DISTRIBUTION WIDTH 15.1 % (11.5-14.5)
[2016-02-20 07:18] LABS: PLATELET COUNT, AUTOMATED 55 k/mm3 (150-450); WHITE BLOOD COUNT 0.5 K/mm3 (4.0-10.0)
[2016-02-20 07:29] LABS: ALBUMIN/GLOBULIN RATIO 0.51 (1.00-1.93); BILIRUBIN,TOTAL 1.2 MG/DL (0.2-1.0); CALCIUM LEVEL 7.3 MG/DL (8.8-10.2); CREATININE FOR GFR 1.18 MG/DL (0.55-1.02); GLOMERULAR FILTRATION RATE 48.6 (>45); POTASSIUM SERUM 4.3 MEQ/L (3.5-5.1); TOTAL PROTEIN 5.9 GM/DL (6.4-8.2)
[2016-02-20] MEDS: SUCRALFATE 1 GM TAB PO SCH ×3 (07:30→12:00)
[2016-02-20 08:06] LABS: ANISOCYTOSIS 1+
[2016-02-20] MEDS: LACTOBACILLUS ACIDOPHILUS CAP (BACID) PO SCH ×3 (09:22→21:28)
[2016-02-20] MEDS: ALPRAZolam 0.25 MG TAB PO PRN (09:22)
[2016-02-20] MEDS: LORATADINE 10 MG TAB PO SCH (09:23)
[2016-02-20] MEDS: PANTOPRAZOLE 40MG TAB (PROTONIX) PO SCH ×2 (09:23→21:27)
[2016-02-20] MEDS: CARVedilol 3.125 MG TAB PO SCH ×2 (09:23→21:28)
[2016-02-20] MEDS: oxyCODONE 5MG TAB PO PRN (09:39)
--- NOTE | 2016-02-20 10:04 | ECHO ---
DATE OF PROCEDURE: 02/19/2016 REFERRING PHYSICIAN: Dr. Burgses INDICATION: Murmur The patient measures 155 cm and weighs 53 kg. DIMENSIONS: IVS - 1.1 LV - 5.1 LVPW - 1.2 LA - 4.2 Aorta - 1.9 FINDINGS: Study is of acceptable technical quality. Left ventricle is normal size. It seems to be mildly globally hypokinetic with estimated EF around 50%. There is more pronounced hypokinesis to the septum and basal inferior wall. Right ventricle does not appear enlarged. Left atrium is severely enlarged. Right atrium is probably normal size. Aortic valve is sclerotic but it is normal mobility. Mitral valve was fairly well seen. There appears to be in no significant structural abnormalities to the valve based on 2D imaging. Tricuspid valve is normal. Pulmonic valve is also normal. No pericardial effusion is noted. Inferior vena cava is normal size. Aortic root is normal. Aortic arch and abdominal aorta were not visualized. Doppler interrogation reveals no significant aortic stenosis and mild insufficiency. There is probably severe mitral insufficiency with MR jet oriented towards lateral wall of left atrium suggestive of anterior mitral leaflet prolapse. There is mild tricuspid insufficiency. Calculated pulmonary artery pressure is in the 30s consistent with mild pulmonary hypertension. Pulmonic valve is functionally competent. Evaluation for diastolic function reveals grade 2 diastolic dysfunction based on mitral inflow pattern and tissue Doppler imaging of mitral annulus. CONCLUSION: 1. Study is of acceptable technical quality. 2. Normal LV size with mild global hypokinesis and subtle segmental wall motion abnormalities as listed above and overall mildly reduced LV systolic function. Grade 2 diastolic dysfunction. 3. Sclerotic abnormalities of aortic valve resulting in no significant stenosis and mild insufficiency. 4. Probably severe mitral insufficiency with an eccentric MR jet. 5. Normal CVP and probably mild pulmonary hypertension. COMMENT: SBE prophylaxis is not recommended. It is suggested that the patient is further evaluated for severity of mitral valve disease. MTDD
[2016-02-20] MEDS: VANCOMYCIN HCL 750 MG, VIAL MATE ADAPTER 1 EACH in D5W 250 ML IV SCH (11:12)
[2016-02-20] MEDS: FLUCONAZOLE 400 MG in APPROPRIATE DILUENT 1 EA IV SCH (13:12)
[2016-02-20] MEDS: SUCRALFATE SUSP 1GM/10ML UD PO SCH ×3 (13:12→21:28)
--- NOTE | 2016-02-20 15:34 | ROOR ---
Patient Name: Cheyanne Alexander Procedure Date: 02/20/2016 3:13 PM Date of : 1950 Age: 65 Room: Main OR Gender: Female Note Status: Finalized Procedure: Upper GI endoscopy Indications: Abnormal CT of the GI tract Providers: DO Magan Fuller MD: 2. Inpatient 2. Inpatient Requesting Provider: Medicines: Propofol per Anesthesia Complications: No immediate complications. Procedure: Pre-Anesthesia Assessment: - Prior to the procedure, a History and Physical was performed, and patient medications and allergies were reviewed. The patient is competent. The risks and benefits of the procedure and the sedation options and risks were discussed with the patient. All questions were answered and informed consent was obtained. Patient identification and proposed procedure were verified by the physician, the nurse, the anesthesiologist and the lead slot technician in the procedure room. Mental Status Examination: alert and oriented. Airway Examination: normal oropharyngeal airway and neck mobility. Respiratory Examination: clear to auscultation. CV Examination: normal. Prophylactic Antibiotics: The patient does not require prophylactic antibiotics. Prior Anticoagulants: The patient has taken no previous anticoagulant or antiplatelet agents. ASA Grade Assessment: III - A patient with severe systemic disease. After reviewing the risks and benefits, the patient was deemed in satisfactory condition to undergo the procedure. The anesthesia plan was to use monitored anesthesia care (MAC). Immediately prior to administration of medications, the patient was re-assessed for adequacy to receive sedatives. The heart rate, respiratory rate, oxygen saturations, blood pressure, adequacy of pulmonary ventilation, and response to care were monitored throughout the procedure. The physical status of the patient was re-assessed after the procedure. The Endoscope was introduced through the mouth, and advanced to the second part of duodenum. The upper GI endoscopy was accomplished without difficulty. The patient tolerated the procedure well. Findings: Food was found in the lower third of the esophagus. One non-bleeding cratered gastric ulcer with no stigmata of bleeding was found in the gastric fundus. The lesion was 5 mm in largest dimension. The exam was otherwise without abnormality. Impression: - Food in the lower third of the esophagus. - Non-bleeding gastric ulcer with no stigmata of bleeding. - The examination was otherwise normal. - No specimens collected. Recommendation: - Return patient to hospital [facility] for ongoing care. Petr Cohen DO 02/20/2016 3:33:45 PM This report has been signed electronically. Number of Addenda: 0 Note Initiated On: 02/20/2016 3:13 PM Estimated Blood Loss: Estimated blood loss was minimal.
[2016-02-20] MEDS ORDERED: LIDOCAINE 2% JELLY 30 ML TOP SCH (19:15)
[2016-02-20] MEDS: FOLIC ACID 1 MG TAB PO SCH (21:27)
[2016-02-20] MEDS: ASCORBIC ACID 500 MG TAB PO SCH (21:27)
[2016-02-21] MEDS: MEROPENEM INJ 1 GM in D5W MINI-BAG PLUS 100 ML IV SCH ×2 (01:18→16:06)
[2016-02-21 06:00] VITALS: BP 138/78
--- NOTE | 2016-02-21 07:08 | IPN ---
DATE: 02/20/2016 ATTENDING DOCTOR: Dr. Chavira TIME PATIENT WAS SEEN: 1700. Patient has been seen and examined at bedside. Patient continued to have low grade temperature; however, no temperature above 100.4 since yesterday. The patient also underwent esophagogastroduodenoscopy (EGD) with Dr. Cohen and found that patient does not have a mass; however, she does have a stomach ulcer and the patient herself appears to be more confused today; however, she denies any chest pain, trouble breathing or any abdominal pains, nausea, vomiting, or constipation. The patient admits to some pain from her hemorrhoid, which has been chronic for her. Denies any other current new complaints. PHYSICAL EXAMINATION: VITAL SIGNS: Temperature was 98.2, pulse 83, respirations 16, blood pressure was 101/59 and oxygen was saturating at 99% on room air. GENERAL: Patient is thin looking elderly female who was alert, awake and oriented to herself only. Does not appear to be in distress. Lying comfortable in bed in left lateral decubitus position. HEENT: Normocephalic, atraumatic. Extraocular motor intact. Mucosa moist. NECK: Supple. No neck lymphadenopathy. CARDIOVASCULAR: Regular rate and rhythm. S1, S2. No murmurs, rubs, or gallops. LUNGS: Clear to auscultation bilaterally. No wheezing, rales, or rhonchi. ABDOMEN: Positive bowel sounds, soft, nontender, nondistended. No peritoneal signs. No ecchymosis. EXTREMITIES: No edema, clubbing, or cyanosis. SKIN: Warm and dry. NEUROLOGIC: Cranial nerves II-XII intact. No focal neurological deficit. RECTAL EXAM: Shows patient has a hemorrhoid at 3 o'clock and also 6 o'clock. However, the hemorrhoid was soft and does not appear to be erythematous and it was only mildly tender to palpation. No drainage. LABORATORY DATA: WBC 0.5, hemoglobin 8.4, hematocrit 25 with a platelet count of 55 and MCV of 89.9. Sodium 136, potassium 4.3, chloride 101, bicarbonate 26, anion gap 9, BUN 13, creatinine 1.18, calcium 7.3, albumin 2.0, total bilirubin 1.2, AST 11, ALT 7. Patient's CSF culture is pending, CSF viral culture is pending. Otherwise no new cultures. Patient had EGD done with Dr. Cohen, general surgery, this afternoon. From that, patient has a shortened lower third of esophagus, nonbleeding gastric ulcer with no stigmata of bleeding. Examination was otherwise normal. No specimens collected. ASSESSMENT AND PLAN: 65-year-old female with past medical history of anxiety, congestive heart failure (CHF), coronary artery disease, status post coronary artery bypass graft (CABG), chronic obstructive pulmonary disease (COPD), hyperlipidemia, hypertension, recently diagnosed myelodysplastic syndrome who presented with: 1. Fever, unknown etiology, possibly secondary to neutropenic fever versus infectious etiologies. Dr. Wright has been consulted who recommended to transfer patient again; however, patient's family still refused transferring. Patient's family also refused transferring on admission also when Dr. Barone recommended her to be transferred. At this point, will continue patient on empiric antibiotic with meropenem and vancomycin and continue to monitor the patient. The patient has not had a fever since yesterday as well. However, she does have a mild elevation of temperature. The patient also had a lumbar puncture yesterday. Cultures are pending. Will follow up. 2. CT finding of possible distal esophagus mass. EGD was done with general surgery and Dr. Cohen today. He did not see any obvious mass; however, patient did have a gastric ulcer and no biopsy was obtained. Will continue patient back on previous GI regimen with Carafate, GI cocktail and Protonix. Dr. Cohen also advanced patient's diet to regular. 3. Increased bowel movements. Clostridium difficile has been ruled out. CT did not show any acute findings. Will continue to monitor patient as patient no longer has any complaints. 4. Urinary retention, resolved. 5. Altered mental status secondary to septic encephalopathy. MRI did not show any acute findings. However, the altered mental status appeared to be worsened this afternoon. 6. Sepsis, possibly secondary to urinary tract infection (UTI). Continue meropenem and vancomycin. So far, all cultures have been negative. 7. Chest pain likely secondary to esophageal spasm. Patient also does have a gastric ulcer that was found on EGD. Per patient's family, Dr. Cohen recommended possible swallow evaluation. Will follow up with him in the morning regarding possible barium swallow. 8. Hypoalbuminemia. Continue Ensure supplement. 9. Myelodysplastic syndrome. Dr. Barone initially recommended transferring, patient refused. At this time, Dr. Wright also recommended transferring and patient's family refused as well. Also, Dr. Wright does not believe Neupogen is indicated at this point. The patient is status post two units of irradiated PRBC and platelets. 10. History of coronary artery disease, status post myocardial infarction (GA) and CABG. Continue beta angelito and statin. 11. History of CHF, unknown ejection fraction. Echocardiogram has been ordered. Will followup. Patient however does not have any signs of jugular venous distention (JVD) or lower extremity edema. 12. Chronic kidney disease, stable. 13. Deep vein thrombosis (DVT) prophylaxis, on sequential compression device (SCD) only. No chemical prophylaxis due to thrombocytopenia. DISPOSITION: Continue patient on intravenous (IV) antibiotics. Continue to follow up with cultures. Patient is DO NOT RESUSCITATE/DO NOT INTUBATE. Patient has been discussed with attending doctor, Dr. Chavira. My preceptor for this patient encounter was Dr. Chavira. The preceptor was physically present in the building during the encounter and was fully available as needed. All aspects of the patient interview, examination, medical decision making process, and medical care plan development were reviewed and approved by the preceptor. The preceptor is aware and concurs with the plan as stated in the body of this note and will attest to such by his/her co-signature.
[2016-02-21 07:13] LABS: BASO % 1.6 % (0.0-1.0); EOS % 1.1 % (0.0-3.0); LARGE UNSTAINED CELL # 0.1 K/mm3 (0.0-0.4); LARGE UNSTAINED CELL % 27.2 % (0.0-4.0); LYMPH # 0.2 K/mm3 (1.5-4.5); MEAN CORPUSCULAR HEMOGLOBIN 29.9 pg (27.0-33.0); MEAN CORPUSCULAR HGB CONC 32.7 g/dl (32.0-36.5); MEAN CORPUSCULAR VOLUME 91.4 fl (80.0-96.0); NEUTROPHILS # 0.1 K/mm3 (1.8-7.7); NEUTROPHILS % 20.2 % (36.0-66.0); RED CELL DISTRIBUTION WIDTH 15.3 % (11.5-14.5)
[2016-02-21 07:14] LABS: PLATELET COUNT, AUTOMATED 59 k/mm3 (150-450); WHITE BLOOD COUNT 0.5 K/mm3 (4.0-10.0)
[2016-02-21 07:22] LABS: ALBUMIN/GLOBULIN RATIO 0.45 (1.00-1.93); BILIRUBIN,TOTAL 1.2 MG/DL (0.2-1.0); CALCIUM LEVEL 7.5 MG/DL (8.8-10.2); CREATININE FOR GFR 1.05 MG/DL (0.55-1.02); GLOMERULAR FILTRATION RATE 55.7 (>45); MAGNESIUM LEVEL 2.1 MG/DL (1.8-2.4); POTASSIUM SERUM 3.9 MEQ/L (3.5-5.1); TOTAL PROTEIN 6.4 GM/DL (6.4-8.2)
[2016-02-21] MEDS: SUCRALFATE SUSP 1GM/10ML UD PO SCH ×4 (07:58→21:35)
[2016-02-21] MEDS ORDERED: E-Z-GAS II EFFERVESCENT PACKET (SODIUM BICARB./CITRIC ACID/SIMETHICONE) As Ordered ONE (08:43)
[2016-02-21] MEDS ORDERED: E-Z-PAQUE 96% w/w SUSP 176GM BTL As Ordered ONE (08:43)
[2016-02-21] MEDS ORDERED: E-Z-HD 98% w/w 340GM SUSP BTL As Ordered ONE (08:43)
[2016-02-21] MEDS: CARVedilol 3.125 MG TAB PO SCH ×2 (09:08→21:37)
[2016-02-21] MEDS: PANTOPRAZOLE 40MG TAB (PROTONIX) PO SCH ×2 (09:08→21:36)
[2016-02-21] MEDS: ALPRAZolam 0.25 MG TAB PO PRN ×3 (09:11→21:43)
[2016-02-21] MEDS: LACTOBACILLUS ACIDOPHILUS CAP (BACID) PO SCH ×3 (09:12→21:36)
[2016-02-21] MEDS: LORATADINE 10 MG TAB PO SCH (09:12)
[2016-02-21] MEDS: VANCOMYCIN HCL 750 MG, VIAL MATE ADAPTER 1 EACH in D5W 250 ML IV SCH (11:06)
[2016-02-21] MEDS: D5W/0.45% SODIUM CHLORIDE 1,000 ML IV SCH (11:06)
--- NOTE | 2016-02-21 11:32 | CR ---
DATE OF CONSULTATION: 02/19/2016 REASON FOR CONSULTATION: Is abnormal CT scan. HISTORY OF PRESENT ILLNESS: Patient is a 65-year-old female who has had a history of CABG 3 months ago secondary to an acute myocardial infarction (CT). She also has a history of myelodysplastic syndrome and received chemo 2 weeks ago. She came in the hospital on 02/13/2016 with fevers and neutropenia. She has had persistent neutropenia since she has been here as well as intermittent fevers. She had a CT scan of the chest, abdomen and pelvis both done yesterday, 02/19/2016, which showed thickening at the GE junction with concern for possible malignancy and stricture in the distal esophagus. Therefore, with this finding as well as her persistent thickening at the GE junction, they asked that I do a upper endoscopy to evaluate for both possible mass as well as possible source of an infection. After discussion with the family, she has never had this upper endoscopy completed in the past. She has not had any problems with swallowing either liquids or solids. She has had occasional epigastric pain. No other complaints. However, she is still continuing to have fevers, most recently 101.5 this afternoon. There was concern for possible acute episode of leukemia when she came into the emergency room and recommendation from oncology was to transfer her to [place]; however, family refused. That is why she is being continually treated here. PAST MEDICAL HISTORY: 1. Anxiety. 2. Congestive heart failure (CHF). 3. Chronic kidney disease (CKD). 4. Chronic obstructive pulmonary disease (COPD). 5. Hyperlipidemia. 6. Hypertension. 7. Recent CT. 8. Myelodysplastic syndrome. PAST SURGICAL HISTORY: 1. Cataracts bilateral. 2. CABG. 3. Tubal ligation. SOCIAL HISTORY: Denies any current drug, alcohol or tobacco abuse. ALLERGIES: SULFA. HOME MEDICATIONS: Please see medical record. FAMILY HISTORY: Noncontributory. REVIEW OF SYSTEMS: Denies any nausea, vomiting. No shortness of breath. No coughing or productive sputum. No abdominal pains. No epigastric pains. No difficulty with swallowing solids or liquids. Rest of the pertinent history is negative. PHYSICAL EXAMINATION: General: Patient is alert and oriented times three. No acute distress. Vital signs: Temperature 98.3, pulse 75, respirations 18, blood pressure 100/58, pulse oximetry 96% room air. HEENT: Pupils equal, round, react to light and accommodation. Heart: S1, S2. Regular rate and rhythm. Lungs: Clear to auscultation bilaterally. Abdomen: Soft, nontender, nondistended. Bowel sounds positive. Extremities: No clubbing, cyanosis or edema. LABORATORY DATA: White count was 0.5, hemoglobin 9.6, platelets 48. Potassium 4.5, creatinine 1.16. IMAGING: CT abdomen and pelvis shows mild ileus pattern, mural thickening at the GE junction, questionable early mass. CT chest shows, again thickening at the distal GE junction with a dilated air and oral contrast filled esophagus questionable for distal esophageal stricture versus partial obstruction. ASSESSMENT AND PLAN: Patient is a 65-year-old female with complicated medical history including hypertension, chronic obstructive pulmonary disease, coronary artery disease, recent, myocardial infarction, myelodysplastic syndrome. She has had chemotherapy 2 weeks ago, currently here with neutropenia and fevers, questionable mass at the distal GE junction secondary to malignancy versus infectious source. Recommendation at this time is to proceed with esophagogastroduodenoscopy (EGD). Risks and benefits of procedure not limited but including bleeding, infection, perforation were discussed in detail with the patient and the patient's family. Consent will be obtained and procedure is planned for tomorrow, 02/20/2016. Thank you.
[2016-02-21 14:00] VITALS: BP 122/62
--- NOTE | 2016-02-21 14:56 | CR ---
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 HISTORY OF PRESENT ILLNESS: Mrs. Alexander is a 65-year-old woman who was found to have pancytopenia towards the end of 12/2015. She was admitted to [facility] in [place] and had a bone marrow aspiration and biopsy, which was signed out as MDS/RAEB-2. She was given decitabine chemotherapy and was discharged home. She is currently admitted for fever and neutropenia. Her cultures have come back negative so far, including a blood culture as well as a urine culture. She also had a spinal tap yesterday, as she has also been confused and her son has noted delirium since just before she was admitted to the hospital. ALLERGIES: SULFA DRUGS - hives. CURRENT MEDICATIONS: - sucralfate - fluconazole - cod liver oil/zinc oxide ointment. - lactobacillus acidophilus - magnesium oxide - hyoscyamine/lidocaine/aluminum/magnesium/simethicone - pantoprazole - ondansetron - vancomycin - carvedilol - loratadine - meropenem - acetaminophen - alprazolam - diphenhydramine as needed - oxycodone as needed - polyethylene glycol as needed - ascorbic acid - folic acid On physical examination, she was lying comfortably in bed, not in distress. She answered questions appropriately, although she was not oriented to time. She was also slightly confused in answering some questions. She had no oral mucosal lesions. LUNGS: Fair air entry. S1, S2 regular. ABDOMEN: Was soft, nontender. No guarding. EXTREMITIES: No calf swelling. No calf tenderness and no pedal edema. IMPRESSION AND PLAN: Mrs. Alexander is a 65-year-old woman with RAEB-2/MDS, who recently received decitabine chemotherapy. She has been neutropenic since the end of December of this year and throughout her chemotherapy. She also has been thrombocytopenic and anemic. Her platelet counts have improved with platelet transfusions. Her hemoglobin level has also improved with red cell transfusions. She has been febrile since admission up to 02/14/2016 and she again had recurrence of fevers on 02/18/2016 up to today, and she has been neutropenic all this time. She is currently on broad-spectrum antibiotics and on fluconazole. I recommended a transfer to [place] because we do not have Infectious Disease service coverage here in [facility] this week. Mrs. Alexander's son informed me that he will talk it over with his mother as well as his sister on whether or not they would want the patient transferred to [place]. In the meantime, she should continue broad-spectrum antibiotics, as well as antifungal treatment. I also discussed that granulocyte colony stimulating factors (GCSF or GmCSF) have not been shown to be beneficial in patients with hematologic malignancies who have neutropenic fevers and I am therefore not recommending these at this time. Thank you for this referral. ROX
[2016-02-21] MEDS: FLUCONAZOLE 400 MG in APPROPRIATE DILUENT 1 EA IV SCH (17:00)
--- NOTE | 2016-02-21 17:02 | REP ---
ESOPHAGRAM: [employer] film of the chest demonstrates no change since the prior exam of 02/11/2015. Single contrast barium was ingested and the swelling mechanism appears normal with prompt passage of liquid barium for the oropharynx and hypopharynx into the esophagus. The esophagus is well distended with normal contour, caliber and peristalsis. There is no stricture or mass. There is free flow of barium through the gastroesophageal junction. There is a small hiatal hernia. I did not see gastroesophageal reflux during this exam. IMPRESSION: Small hiatal hernia. Otherwise negative esophagram. Signed by Petr Styles MD 02/22/2016 04:34 P
--- NOTE | 2016-02-21 20:36 | IPN ---
DATE: 02/21/2016 Time patient was seen was this morning at 11:00 The patient has been seen and examined at bedside. The patient still appears to be having altered mental status. The patient does not know that she is in the hospital and does not know the year still; however, she denies any fevers, chills, chest pain, trouble breathing, abdominal pain, nausea, vomiting, diarrhea or constipation. Denies any problem with urination as well. The chest pain seems to have resolved. The patient will have a barium swallow study this afternoon. PHYSICAL EXAMINATION: VITAL SIGNS: Temperature was 99.8, pulse 91, respirations 18, blood pressure 138/78, oxygen saturation 95% on room air. The patient did have a low grade temperature throughout the night. Yesterday at 5:00 p.m. it was 100.1, 6:30 it was 100.2, 7:30 was 100.3, 10:00 p.m. was 100.3. GENERAL: The patient is a frail-looking elderly female who was alert, awake and oriented to herself only; however, she was able to make jokes. Does not appear to be in distress. HEENT: Normocephalic, atraumatic. Extraocular motors intact. Mucosa moist. NECK: Supple. No neck lymphadenopathy. CARDIOVASCULAR: Regular rate and rhythm. S1, S2. No murmurs, rubs or gallops. LUNGS: Clear to auscultation bilaterally. No wheezes, rales or rhonchi. ABDOMEN: Positive bowel sounds. Soft, nondistended, nondistended. No peritoneal signs. No ecchymoses. EXTREMITIES: No edema, clubbing or cyanosis. SKIN: Warm and dry. NEUROLOGIC: Cranial nerves II through XII intact. No focal neurological deficit. LABORATORY DATA: WBC 0.5, hemoglobin 8, hematocrit 24.5, with a platelet count of 59. MCV was 91.4. Sodium 137, potassium 3.9, chloride 104, bicarbonate 23, BUN 11, creatinine 1.05, GFR was 55.7 and glucose was 67, calcium 7.5, magnesium 2.1, total bilirubin 1.2, AST 13, ALT 7, C-reactive protein was 18, elevated compared to the day prior 15.5, and total protein 6.4, albumin 2. The patient's GI panel shows negative PCR GI panel. The patient's cerebrospinal fluid: Acid fast stain, microbacterial culture, herpes viral DNA, and also viral culture are pending. CSF Gram-stain culture shows no cells seen and no organisms seen for the past two days. Blood culture has been negative for two days as well. GI pathology is pending. The patient has esophageal barium swallow study that shows a small hiatal hernia, otherwise negative esophagram. ASSESSMENT AND PLAN: 65-year-old female with a past medical history of anxiety, congestive heart failure (CHF), coronary artery disease, status post coronary artery bypass graft (CABG), chronic obstructive pulmonary disease (COPD), hyperlipidemia, hypertension, recently diagnosed myelodysplastic syndrome, who presented with: 1. Fever, likely neutropenic fever; however, etiology is not clear and infectious source is not clear. Dr. Wright from hematology/oncology has been consulted and recommended the patient be transferred to [place]; however, the patient's family refused. Dr. Barone on admission also recommended to the patient's transferring; however, the patient's family refused at that time also. At this point, we will continue the patient on meropenem and vancomycin and also fluconazole. The patient's lumbar puncture culture has not shown any growth so far. We will continue to monitor. In addition, barium swallow esophagogram has shown only a small hiatal hernia, otherwise negative. The patient's EGD only shows a gastric ulcer and pathology result is pending. In addition, nuclear scan tagged WBC has been ordered. However, due to lack of radioisotope it can only be done on 02/26/2016. 2. CT scan shows possible esophageal mass; however, EGD was done with Dr. Cohen and it was negative for any masses. Biopsy result is pending. Continue GI regimen. 3. Increased bowel movements, resolved. Clostridium (C) difficile has been ruled out. GI panel has been negative. 4. Urinary retention, resolved. 5. Altered mental status, likely secondary to septic encephalopathy. MRI did not show any acute findings. The patient still has altered mental status. 6. Sepsis secondary to possible urinary tract infection (UTI). Continue meropenem and vancomycin. All cultures have been negative, however. 7. Chest pain. Likely secondary to esophageal spasm. Barium swallow only shows a hiatal hernia. EGD only shows gastric ulcer. We appreciate Dr. Cohen's help. 8. Hypoalbuminemia. Continue Ensure. 9. Myelod[address] syndrome. Dr. Wright has been consulted. We appreciate her help. She stated that the patient has a RAEB-2 myelodysplastic syndrome. The patient also recently received Decitabine chemotherapy and she recommended the patient be transferred to [place] due to currently we do not have infectious disease coverage; however, the patient's family refused the transfer due to this is closer to their house and easier for them to come to visit their mother. At this point, we will continue to put the patient on contact precautions. 10. Coronary artery disease, status post myocardial infarction and coronary artery bypass graft (CABG). Continue beta angelito and statin. 11. History of congestive heart failure (CHF). Echocardiogram has been ordered on 02/19/2016 and shows ejection fraction of 50%. The patient does have mild global hypokinesis and subtle segmental wall motion abnormality and mildly reduced left ventricular systolic function and also a grade II diastolic dysfunction, probable severe mitral insufficiency with eccentric mitral regurgitation jet. 12. Chronic kidney disease, stable. 13. Deep vein thrombosis (DVT) prophylaxis. On sequential compression device (SCD) only due to thrombocytopenia. DISPOSITION: Continue antibiotics. Continue antifungal. We appreciate Dr. Wright's help. We will continue to follow the cultures. Currently, the patient is DO NOT RESUSCITATE, DO NOT INTUBATE. We will trend the patient's C-reactive protein and ESR. The patient has been discussed with the attending doctor, Dr. Chavira. My preceptor for this patient encounter was Dr. Chavira. The preceptor was physically present in the building during the encounter and was fully available. As needed, all aspects of the patient interview, examination, medical decision making process, and medical care plan development were reviewed and approved by the preceptor. The preceptor is aware and concurs with the plan as stated in the body of this note and will attest to such by his/her cosignature.
[2016-02-21 21:25] VITALS: BP 136/68
[2016-02-21] MEDS: FOLIC ACID 1 MG TAB PO SCH (21:36)
[2016-02-21] MEDS: ASCORBIC ACID 500 MG TAB PO SCH (21:37)
[2016-02-21] MEDS ORDERED: ACETAMINOPHEN 325 MG SUPP PR PRN (22:30)
[2016-02-22] MEDS: MEROPENEM INJ 1 GM in D5W MINI-BAG PLUS 100 ML IV SCH ×2 (02:09→13:01)
[2016-02-22] MEDS: D5W/0.45% SODIUM CHLORIDE 1,000 ML IV SCH (02:09)
[2016-02-22 05:48] VITALS: BP 124/58
[2016-02-22] MEDS: ALPRAZolam 0.25 MG TAB PO PRN (07:59)
[2016-02-22 08:06] LABS: DIFF SLIDE NUMBER 30; MEAN CORPUSCULAR HEMOGLOBIN 30.7 pg (27.0-33.0); MEAN CORPUSCULAR HGB CONC 34.5 g/dl (32.0-36.5); MEAN CORPUSCULAR VOLUME 88.9 fl (80.0-96.0); RED CELL DISTRIBUTION WIDTH 15.3 % (11.5-14.5)
[2016-02-22 08:24] LABS: ALBUMIN 1.8 GM/DL (3.2-5.2); ALBUMIN/GLOBULIN RATIO 0.43 (1.00-1.93); CALCIUM LEVEL 7.7 MG/DL (8.8-10.2); CREATININE FOR GFR 1.02 MG/DL (0.55-1.02); GLOMERULAR FILTRATION RATE 57.5 (>45); POTASSIUM SERUM 3.6 MEQ/L (3.5-5.1)
[2016-02-22 08:29] LABS: PLATELET COUNT, AUTOMATED 53 k/mm3 (150-450); WHITE BLOOD COUNT 0.6 K/mm3 (4.0-10.0)
[2016-02-22 08:30] LABS: BASO % 5.5 % (0.0-1.0); EOS % 0.5 % (0.0-3.0); LARGE UNSTAINED CELL % 20.1 % (0.0-4.0); LYMPH % 64.5 % (24.0-44.0); MONO % 2.3 % (0.0-5.0); NEUTROPHILS # 0.1 K/mm3 (1.8-7.7)
[2016-02-22 08:31] LABS: ADD MORPHOLOGY? NO; LARGE UNSTAINED CELL # 0.1 K/mm3 (0.0-0.4); LYMPH # 0.4 K/mm3 (1.5-4.5)
[2016-02-22 08:35] LABS: NEUTROPHILS % 12.7 % (36.0-66.0)
[2016-02-22] MEDS: LACTOBACILLUS ACIDOPHILUS CAP (BACID) PO SCH ×3 (09:43→21:20)
[2016-02-22] MEDS: LORATADINE 10 MG TAB PO SCH (09:43)
[2016-02-22] MEDS: SUCRALFATE SUSP 1GM/10ML UD PO SCH ×4 (09:43→21:20)
[2016-02-22] MEDS: PANTOPRAZOLE 40MG TAB (PROTONIX) PO SCH ×2 (09:43→21:20)
[2016-02-22] MEDS: CARVedilol 3.125 MG TAB PO SCH ×2 (09:47→21:20)
[2016-02-22] MEDS: VANCOMYCIN HCL 750 MG, VIAL MATE ADAPTER 1 EACH in D5W 250 ML IV SCH (11:28)
[2016-02-22] MEDS: FLUCONAZOLE 400 MG in APPROPRIATE DILUENT 1 EA IV SCH (12:57)
[2016-02-22] MEDS: ALPRAZolam 0.25 MG TAB PO SCH ×2 (13:01→21:20)
--- NOTE | 2016-02-22 13:08 | IPNPDOC ---
Assessment/Plan Date Seen The patient was seen on 02/22/16. Plan / VTE VTE Prophylaxis Ordered?: No VTE Exclusion Pharmacological: Bleeding Risk Plan / Urinary Catheter Reason for insertion/continuin: Acute obstruct/retention Plan Advance Directives: DNR Plan Text 65 year old female patient with PMH of recently diagnosed MDS, CHF, CAD s/p CABG , COPD, HTN, HLD, and anxiety came in with fever. 1. Fever / Myelodysplastic syndrome Likely neutopenic fever. No episodes of fever since 02/20/16. Hemetology on case and recommended to be transferred but the patient refused. Family and the patient want to wait for ID evaluation. On meropenem, vancomycin, and fluconazole. s/p LP but negative result so far. Recommended nuclear tagged-WBC scan but it will not be done until next week. Will continue to monitor closely. 2. Suspicious esophageal mass From CT scan. s/p EGD and showed gastric ulcer and waiting biopsy result. 3. CAD s/p CABG / Diastolic CHF / HTN / HLD s/p TTE and showed moderate to severe MR and patient may need to follow with cardiology as an outpatient. On carvedilol 3.125mg po bid. Would consider to increase to 6.25mg po bid if indicated. Would recommend statin if no contraindications. 4. Anxiety On standing dose of Xanax for now. 5. DVT prophylaxis On SCD. 5. Disposition Patient is DNR/DNI. TBD. Subjective Review of Systems CC/HPI Patient was seen and examined at bedside. She is in no acute distress and sitting in chair comfortably. No chest pain or shortness of breath. Complaining of anxiety and plan for medications was discussed with her and her son at bedside. Still doesn't want to be transferred to [place]. Objective Vital Signs/I&O Vital Signs Date Time Temp Pulse Resp B/P Pulse Ox O2 Delivery O2 Flow Rate FiO2 02/22/16 09:47 85 125/61 02/22/16 05:48 96.8 18 98 Room Air I&O- Last 24 Hours up to 6 AM 02/22/16 05:59 Intake Total 1695 ml Output Total 1375 ml Balance 320 ml Laboratory Data Labs 24H Laboratory Tests 2 02/22/16 07:46: Blood Urea Nitrogen 10, Creatinine 1.02, Sodium Level 139, Potassium Level 3.6, Chloride Level 106, Carbon Dioxide Level 22, Calcium Level 7.7L, Aspartate Amino Transf (AST/SGOT) 14L, Alanine Aminotransferase (ALT/SGPT) 7L, Alkaline Phosphatase 62, Total Bilirubin 1.0, Total Protein 6.0L, Albumin 1.8L, Albumin/ Globulin Ratio 0.43L, Anion Gap 11, White Blood Count 0.6*L, Red Blood Count 2.84L, Hemoglobin 8.7L, Hematocrit 25.2L, Mean Corpuscular Volume 88.9, Mean Corpuscular Hemoglobin 30.7, Mean Corpuscular Hemoglobin Concent 34.5, Red Cell Distribution Width 15.3H, Platelet Count 53L, Neutrophils (%) (Auto) 12.7L, Lymphocytes (%) (Auto) 64.5H, Monocytes (%) (Auto) 2.3, Eosinophils (%) (Auto) 0.5, Basophils (%) (Auto) 5.5H, Neutrophils # (Auto) 0.1L, Lymphocytes # (Auto) 0.4L, Monocytes # (Auto) 0.0, Eosinophils # (Auto) 0.0, Basophils # (Auto) 0.0, Glomerular Filtration Rate 57.5, Large Unclassified Cells # 0.1, Large Unclassified Cells % 20.1H, Magnesium Level 2.0 CBC/BMP Laboratory Tests 02/22/16 07:46 Calcium Level 7.7 L, Aspartate Amino Transf (AST/SGOT) 14 L, Alanine Aminotransferase (ALT/SGPT) 7 L, Alkaline Phosphatase 62, Total Bilirubin 1.0, Total Protein 6.0 L, Albumin 1.8 L, Red Blood Count 2.84 L, Mean Corpuscular Volume 88.9, Mean Corpuscular Hemoglobin 30.7, Mean Corpuscular Hemoglobin Concent 34.5, Red Cell Distribution Width 15.3 H, Neutrophils (%) (Auto) 12.7 L , Lymphocytes (%) (Auto) 64.5 H, Monocytes (%) (Auto) 2.3, Eosinophils (%) (Auto ) 0.5, Basophils (%) (Auto) 5.5 H, Neutrophils # (Auto) 0.1 L, Lymphocytes # ( Auto) 0.4 L, Monocytes # (Auto) 0.0, Eosinophils # (Auto) 0.0, Basophils # (Auto ) 0.0 Microbiology Microbiology 02/19/16 Viral Culture, Received Pending 02/19/16 Blood Culture - Preliminary, Resulted No Growth after 72 hours. All specime... 02/19/16 Blood Culture - Preliminary, Resulted No Growth after 72 hours. All specime... 02/12/16 Blood Culture - Final, Complete NO GROWTH AFTER 5 DAYS 02/12/16 Blood Culture - Final, Complete NO GROWTH AFTER 5 DAYS 02/19/16 Acid Fast Stain, Resulted Pending 02/19/16 Mycobacterial Culture, Resulted Pending 02/19/16 Herpes Virus DNA (PCR) - Final, Resulted 02/19/16 Gram Stain - Final, Complete 02/19/16 CSF Culture - Final, Complete 02/21/16 Gastrointestinal Tract Panel (PCR) - Final, Complete 02/18/16 Clostridium difficile (PCR) - Final, Complete 02/14/16 Stool Occult Blood (VALARIE) - Final, Complete 02/18/16 Urine Culture - Final, Complete 02/13/16 Urine Culture - Final, Complete SYMONE GAN MD Feb 22, 2016 13:08
[2016-02-22] MEDS ORDERED: ANUSOL HC 25MG SUPP PR PRN (13:30)
[2016-02-22 14:00] VITALS: BP 134/60
[2016-02-22] MEDS: COMBIVENT RESPIMAT 100-20MCG INHALER 4GM INH SCH ×2 (14:20→20:03)
[2016-02-22] MEDS: oxyCODONE 5MG TAB PO PRN (15:57)
[2016-02-22 20:55] VITALS: BP 146/67
[2016-02-22] MEDS: FOLIC ACID 1 MG TAB PO SCH (21:20)
[2016-02-22] MEDS: ASCORBIC ACID 500 MG TAB PO SCH (21:20)
[2016-02-23 00:06] LABS: CSFLYM10 Absent (.); CSFLYM11 Absent (.); CSFLYM12 Negative (.); CSFLYM14 Absent (.); CSFLYM15 Absent (.); CSFLYM16 Absent (.); CSFLYM17 Negative (.); CSFLYM2 Absent (.); CSFLYM3 Present (.); CSFLYM4 Absent (.); CSFLYM5 Present (.); CSFLYM6 Absent (.); CSFLYM7 Absent (.); CSFLYM8 Absent (.); CSFLYM9 Absent (.)
[2016-02-23] MEDS: COMBIVENT RESPIMAT 100-20MCG INHALER 4GM INH SCH ×4 (00:40→19:24)
[2016-02-23] MEDS: MEROPENEM INJ 1 GM in D5W MINI-BAG PLUS 100 ML IV SCH ×2 (02:16→15:06)
[2016-02-23] MEDS: ALPRAZolam 0.25 MG TAB PO SCH ×3 (05:09→17:23)
[2016-02-23 05:22] VITALS: BP 140/75
[2016-02-23] MEDS: PANTOPRAZOLE 40MG TAB (PROTONIX) PO SCH ×3 (05:51→21:12)
[2016-02-23 06:33] LABS: BASO % 3.2 % (0.0-1.0); EOS % 0.8 % (0.0-3.0); LARGE UNSTAINED CELL # 0.2 K/mm3 (0.0-0.4); LYMPH # 0.5 K/mm3 (1.5-4.5); LYMPH % 47.5 % (24.0-44.0); MEAN CORPUSCULAR HEMOGLOBIN 29.6 pg (27.0-33.0); MEAN CORPUSCULAR HGB CONC 33.1 g/dl (32.0-36.5); MEAN CORPUSCULAR VOLUME 89.4 fl (80.0-96.0); MONO % 2.6 % (0.0-5.0); NEUTROPHILS # 0.1 K/mm3 (1.8-7.7); NEUTROPHILS % 21.9 % (36.0-66.0); RED CELL DISTRIBUTION WIDTH 16.4 % (11.5-14.5)
[2016-02-23 06:37] LABS: PLATELET COUNT, AUTOMATED 60 k/mm3 (150-450); WHITE BLOOD COUNT 0.6 K/mm3 (4.0-10.0)
[2016-02-23 06:59] LABS: ALBUMIN 1.8 GM/DL (3.2-5.2); ALBUMIN/GLOBULIN RATIO 0.41 (1.00-1.93); BILIRUBIN,TOTAL 0.9 MG/DL (0.2-1.0); CALCIUM LEVEL 7.7 MG/DL (8.8-10.2); GLOMERULAR FILTRATION RATE 58.9 (>45); MAGNESIUM LEVEL 1.9 MG/DL (1.8-2.4); POTASSIUM SERUM 3.4 MEQ/L (3.5-5.1); TOTAL PROTEIN 6.2 GM/DL (6.4-8.2)
[2016-02-23] MEDS ORDERED: POTASSIUM CHLORIDE 10 MEQ SR TABLET PO ONE (08:00)
[2016-02-23] MEDS: LORATADINE 10 MG TAB PO SCH (08:33)
[2016-02-23] MEDS: LACTOBACILLUS ACIDOPHILUS CAP (BACID) PO SCH ×3 (08:33→21:12)
[2016-02-23] MEDS: SUCRALFATE SUSP 1GM/10ML UD PO SCH ×4 (08:33→21:12)
[2016-02-23] MEDS: ACETAMINOPHEN TAB 650MG DOSE (2X325MG) PO PRN ×2 (08:33→21:12)
[2016-02-23] MEDS: CARVedilol 3.125 MG TAB PO SCH ×2 (08:34→21:12)
[2016-02-23] MEDS ORDERED: ALPRAZolam 0.25 MG TAB PO PRN (10:00)
[2016-02-23] MEDS: VANCOMYCIN HCL 750 MG, VIAL MATE ADAPTER 1 EACH in D5W 250 ML IV SCH (11:21)
--- NOTE | 2016-02-23 12:36 | IPN ---
DATE: 02/23/2016 Patient seen and examined. Denies any chest pain, pressure, discomfort. Denies any shortness of breath. As per family, having very poor oral intake, not really hungry. VITAL SIGNS: Temperature 99.8, pulse 100, respirations 18, blood pressure 140/75, pulse oximetry 97% on room air. LABORATORY DATA: WBC 0.6, hemoglobin and hematocrit 7.8/23.5, platelets 60. Sodium 138, potassium 3.4, chloride 104, bicarbonate 25, BUN 7, creatinine 1. PHYSICAL EXAMINATION: GENERAL: Patient frail, awake, alert, oriented times one, in no acute distress. HEENT: Normocephalic, atraumatic. PULMONARY: Bilaterally clear to auscultation. No wheeze, rales or rhonchi. CARDIAC: Regular rate and rhythm. Normal S1, S2. ABDOMEN: Soft, nontender, nondistended. Positive bowel sounds. EXTREMITIES: No edema bilateral lower extremities. NEUROLOGIC: No focal deficit. ASSESSMENT AND PLAN: This is a 65-year-old female patient with underlying medical history of coronary artery disease with coronary artery bypass graft (CABG), myelodysplastic syndrome, status post chemo 2 weeks prior to admission, history of hypertension, dyslipidemia, anxiety, congestive heart failure. Patient was initially admitted with neutropenic fever and altered mental status as well as chest discomfort. Problems: Neutropenic fever. Unclear etiology. Culture appreciated. Blood culture has been sent, viral cultures, fungal culture. Patient currently on Diflucan, meropenem, vancomycin. Lumbar puncture appreciated. Dr. Wright of hematology/oncology has been consulted who recommended the patient to be transferred to [place]; however, the family refused the transfer. Dr. Barone, on admission, has also recommended the patient be transferred; however, the family also refused. CT scan of the head, chest, and abdomen has also been appreciated showing questionable mass. Subsequently, the patient undergone esophagogastroduodenoscopy (EGD), which was negative other than gastric ulcer. Pathology has been sent. Furthermore, the patient will consult infectious disease, Dr. Beatty. Currently, infectious disease application security consultant is not available. Discussed with family. Family would not want the patient to be transferred and would like to wait for infectious disease consultation. The next possible test is tagged WBC, but will await for Dr. Beatty to decide whether that test is relevant. In the meantime, continue antibiotics. CT scan shows possible esophageal mass. Esophagogastroduodenoscopy, however, was done and is negative for any mass. Biopsy was sent. Diarrhea. GI panel was negative. Urinary retention. Tang catheter. Altered mental status. Possibly secondary to septic encephalopathy. MRI did not show any acute finding. Continue treatment as mentioned above. Will consult infectious disease doctor. Chest pain. Possibly secondary to esophageal spasm. Barium swallow only shows hiatal hernia. Esophagogastroduodenoscopy only showed gastric ulcer. Appreciate Dr. Cohen's assistance. Hypoalbuminemia secondary to poor nutrition. Ensure supplementation. Myelodysplastic syndrome. Dr. Wright has been consulted. As per Dr. Wright, the patient had RAEB-2 myelodysplastic syndrome. The patient also has recently received decitabine chemotherapy, and she recommended the patient be transferred to [place] due to currently we do not have infectious disease coverage. However, the patient's family refused to transfer. Currently, the patient is on airborne precautions. Coronary artery disease with history of coronary artery bypass graft. Continue medication as ordered. The patient is on beta angelito and statin. History of congestive heart failure. Echocardiogram done on 02/19/2016 showed ejection fraction of 50%. The patient does have mild global hypokinesis and subtle segmental wall motion abnormalities and also grade 2 diastolic dysfunction, severe mitral insufficiency. Patient clinically euvolemic. Strict intake and output, monitor fluid status. Chronic kidney disease. Currently stable. Myelodysplastic syndrome. As per patient's family, patient's outpatient encephalographer/oncologist does not believe the patient can tolerate another session of chemotherapy. Continue to monitor CBC with differentials. Supportive care. Protein-calorie malnutrition. Ensure supplementation. The patient is not tolerating much oral. The patient's family believes the patient would not want any artifical means of feeding via percutaneous endoscopic gastrostomy (PEG) tube. Deep vein thrombosis (DVT) prophylaxis. Sequential compression device given thrombocytopenia. DISPOSITION: Continue antibiotics, antifungal. Appreciate Dr. Wright's assistance. Followup cultures, followup further studies. DO NOT RESUSCITATE/DO NOT INTUBATE (DNR/DNI). Consult Dr. Beatty once she returns and once the patient's infectious etiology has been ruled out, will discuss course of care. The family is currently leaning towards more of a comfort oriented care but pending final decision pending infectious disease input.
[2016-02-23] MEDS: oxyCODONE 5MG TAB PO PRN (12:59)
[2016-02-23] MEDS: FLUCONAZOLE 400 MG in APPROPRIATE DILUENT 1 EA IV SCH (13:55)
[2016-02-23 14:00] VITALS: BP 110/58
[2016-02-23 20:55] VITALS: BP 135/66
[2016-02-23] MEDS: FOLIC ACID 1 MG TAB PO SCH (21:12)
[2016-02-23] MEDS: ASCORBIC ACID 500 MG TAB PO SCH (21:12)
[2016-02-24] MEDS: COMBIVENT RESPIMAT 100-20MCG INHALER 4GM INH SCH ×3 (02:00→13:15)
[2016-02-24] MEDS: oxyCODONE 5MG TAB PO PRN ×2 (02:57→17:23)
[2016-02-24] MEDS: MEROPENEM INJ 1 GM in D5W MINI-BAG PLUS 100 ML IV SCH ×2 (02:57→14:53)
[2016-02-24 05:25] VITALS: BP 131/61
[2016-02-24] MEDS: ALPRAZolam 0.25 MG TAB PO SCH ×4 (06:00→17:18)
[2016-02-24 06:37] LABS: BASO % 2.1 % (0.0-1.0); EOS % 0.3 % (0.0-3.0); LARGE UNSTAINED CELL # 0.1 K/mm3 (0.0-0.4); LARGE UNSTAINED CELL % 15.3 % (0.0-4.0); LYMPH # 0.5 K/mm3 (1.5-4.5); LYMPH % 57.2 % (24.0-44.0); MEAN CORPUSCULAR HEMOGLOBIN 29.4 pg (27.0-33.0); MEAN CORPUSCULAR VOLUME 91.9 fl (80.0-96.0); MONO % 3.1 % (0.0-5.0); NEUTROPHILS # 0.2 K/mm3 (1.8-7.7); RED CELL DISTRIBUTION WIDTH 15.4 % (11.5-14.5)
[2016-02-24 06:40] LABS: WHITE BLOOD COUNT 0.8 K/mm3 (4.0-10.0)
[2016-02-24 06:41] LABS: PLATELET COUNT, AUTOMATED 51 k/mm3 (150-450)
[2016-02-24 06:44] LABS: ALBUMIN 1.8 GM/DL (3.2-5.2); ALBUMIN/GLOBULIN RATIO 0.41 (1.00-1.93); CALCIUM LEVEL 7.2 MG/DL (8.8-10.2); CREATININE FOR GFR 1.08 MG/DL (0.55-1.02); GLOMERULAR FILTRATION RATE 53.9 (>45); MAGNESIUM LEVEL 1.8 MG/DL (1.8-2.4); TOTAL PROTEIN 6.2 GM/DL (6.4-8.2)
[2016-02-24] MEDS: PANTOPRAZOLE 40MG TAB (PROTONIX) PO SCH ×2 (08:27→21:28)
[2016-02-24] MEDS: D5W/0.45% SODIUM CHLORIDE 1,000 ML IV SCH (08:27)
[2016-02-24] MEDS: SUCRALFATE SUSP 1GM/10ML UD PO SCH ×4 (08:27→21:27)
[2016-02-24] MEDS: CARVedilol 3.125 MG TAB PO SCH ×2 (08:28→21:28)
[2016-02-24] MEDS: LACTOBACILLUS ACIDOPHILUS CAP (BACID) PO SCH ×3 (08:28→21:28)
[2016-02-24] MEDS: LORATADINE 10 MG TAB PO SCH (09:00)
[2016-02-24] MEDS: VANCOMYCIN HCL 750 MG, VIAL MATE ADAPTER 1 EACH in D5W 250 ML IV SCH (11:07)
[2016-02-24] MEDS: FLUCONAZOLE 400 MG in APPROPRIATE DILUENT 1 EA IV SCH (12:48)
[2016-02-24 14:00] VITALS: BP 144/67
--- NOTE | 2016-02-24 17:09 | REP ---
Clinical: Acute shortness of breath. Technique: AP and lateral views. Comparison: 02/12/2016. Findings: Cardiomegaly is appreciated along with diffuse increased interstitial markings as well as cephalization and suspected small pleural effusion. Subtle scattered pulmonary nodules are identified. No pneumothorax. Skeletal structures stable. Impression: Diffusely increased markings and interstitial prominence. Differential diagnosis includes pulmonary venous congestion/interstitial edema as well as bronchitis and pneumonitis. Small left pleural effusion. Subtle scattered nodules. Signed by Bandar Curran MD 02/24/2016 05:01 P
[2016-02-24] MEDS: FOLIC ACID 1 MG TAB PO SCH (21:28)
[2016-02-24] MEDS: ASCORBIC ACID 500 MG TAB PO SCH (21:28)
[2016-02-24] MEDS: ACETAMINOPHEN TAB 650MG DOSE (2X325MG) PO PRN (21:28)
[2016-02-24 22:00] VITALS: BP 150/67
[2016-02-25] MEDS: MEROPENEM INJ 1 GM in D5W MINI-BAG PLUS 100 ML IV SCH ×2 (02:00→12:56)
[2016-02-25] MEDS: D5W/0.45% SODIUM CHLORIDE 1,000 ML IV SCH (02:08)
[2016-02-25] MEDS: oxyCODONE 5MG TAB PO PRN ×2 (05:13→19:32)
[2016-02-25] MEDS: ALPRAZolam 0.25 MG TAB PO SCH ×6 (05:54→23:51)
[2016-02-25 06:00] VITALS: BP 140/68
[2016-02-25 06:01] LABS: DIFF SLIDE NUMBER 11; MEAN CORPUSCULAR HEMOGLOBIN 30.1 pg (27.0-33.0); MEAN CORPUSCULAR HGB CONC 33.2 g/dl (32.0-36.5); MEAN CORPUSCULAR VOLUME 90.4 fl (80.0-96.0); RED CELL DISTRIBUTION WIDTH 16.8 % (11.5-14.5); WHITE BLOOD COUNT 1.1 K/mm3 (4.0-10.0)
[2016-02-25 06:02] LABS: PLATELET COUNT, AUTOMATED 47 k/mm3 (150-450)
[2016-02-25 06:21] LABS: ALBUMIN 1.8 GM/DL (3.2-5.2); ALBUMIN/GLOBULIN RATIO 0.36 (1.00-1.93); BILIRUBIN,TOTAL 0.8 MG/DL (0.2-1.0); CALCIUM LEVEL 7.9 MG/DL (8.8-10.2); CREATININE FOR GFR 1.09 MG/DL (0.55-1.02); GLOMERULAR FILTRATION RATE 53.3 (>45); POTASSIUM SERUM 3.8 MEQ/L (3.5-5.1); TOTAL PROTEIN 6.8 GM/DL (6.4-8.2)
[2016-02-25 06:59] LABS: ANISOCYTOSIS 1+
[2016-02-25] MEDS: SUCRALFATE SUSP 1GM/10ML UD PO SCH ×5 (07:30→21:00)
[2016-02-25] MEDS: LACTOBACILLUS ACIDOPHILUS CAP (BACID) PO SCH ×4 (09:00→21:01)
[2016-02-25] MEDS: VANCOMYCIN HCL 750 MG, VIAL MATE ADAPTER 1 EACH in D5W 250 ML IV SCH (10:44)
[2016-02-25] MEDS: PANTOPRAZOLE 40MG TAB (PROTONIX) PO SCH ×2 (10:44→21:00)
[2016-02-25] MEDS: LORATADINE 10 MG TAB PO SCH (10:44)
[2016-02-25] MEDS: CARVedilol 3.125 MG TAB PO SCH ×2 (10:44→21:01)
[2016-02-25] MEDS ORDERED: ALPRAZolam 0.25 MG TAB PO PRN (10:45)
[2016-02-25] MEDS ORDERED: LevoFLOXacin 750 MG TABLET PO ONE (11:00)
--- NOTE | 2016-02-25 11:39 | IPN ---
DATE: 02/24/2015 Time patient was seen was this morning at 9:30. The patient has been seen and examined at bedside. The patient has a mild elevation of temperature last night at 10 of 100 Fahrenheit, otherwise the patient remains to be more confused now than when I saw her 3 days ago, patient looked weaker as well. In addition she had a bouts of trouble breathing last night and had a chest x-ray done and it shows possible interstitial prominence and possible interstitial edema versus bronchitis verus pneumonitis. Patient herself was also less oriented, it took her roughly 5-10 minutes before she was more aware of her surroundings and was able to tell the right name of her son and daughter. Patient otherwise denies she has had trouble breathing, any abdominal pains, nausea, vomiting, diarrhea, or constipation. Patient still has a Tang due to urinary retention and the family does not want to remove it at this point. Patient denies any other current new complaints. PHYSICAL EXAMINATION: VITAL SIGNS: Temperature was 96.9, pulse 89, respirations 22, blood pressure 140/68, oxygen saturation 100% on room air. Patient's ins and outs yesterday was total in 870, total output was only 550. GENERAL: The patient is weak-looking, cachectic-looking elderly female who was alert, awake and oriented to self and place, but not to time and laying comfortably in bed with head elevated at 30 degrees. HEENT: Normocephalic, atraumatic. Extraocular motors intact. Mucosa moist. NECK: Supple. No neck lymphadenopathy. CARDIOVASCULAR: Regular rate and rhythm. S1, S2. No murmurs, rubs or gallops. LUNGS: Reduced respiratory sounds bilaterally due to poor respiratory effort. ABDOMEN: Positive bowel sounds. Soft, nondistended. No peritoneal signs. No ecchymoses. EXTREMITIES: Slight nonpitting edema bilaterally, otherwise no cyanosis or clubbing. SKIN: Warm and dry. NEUROLOGIC: Cranial nerves II through XII intact. No focal neurological deficit. LABORATORY DATA: WBC 1.1, hemoglobin 7.8, hematocrit 73.5, with a platelet count of 47. MCV was 90.4. Sodium 140, potassium 3.8, chloride 106, bicarbonate 25, BUN 12, creatinine 1.09 , GFR was 53.3, fasting glucose 102, calcium 7.9, magnesium 2, AST 14, ALT 6, alkaline phosphatase 67, C-reactive protein 14.9, protein 6.8, albumin 1.8. The patient's viral culture is pending as is CSF is pending, microbacterial culture is pending. Patient had a new portable chest x-ray last night at 1659, it showed diffusely increased marking on interstitial prominence, differential diagnosis included pulmonary venous congestion and interstitial edema and well as bronchitis and pneumonitis, also small left pleural effusion subtle scattered nodules. ASSESSMENT AND PLAN: 65-year-old female with a past medical history of coronary artery disease, coronary artery bypass graft (CABG), myelodysplastic syndrome status post chemotherapy two weeks prior to admission, history of hypertension, dyslipidemia, anxiety, congestive heart failure, patient initially admitted with neutropenic fever and altered mental status as well as chest discomfort. 1. Neutropenic fever, unclear etiology, cultures have been ordered. So far everything has been negative. We will follow a fungal culture and a viral culture. Currently patient is on meropenem and vancomycin. Lumbar puncture was done. Dr. Wright from hematology/oncology initially recommended patient be transferred, however, patient's family refused. Again Dr. Barone also recommended patient to be transferred on admission and the patient's family refused as well. At this point we are considering consulting Dr. Beatty and patient also had a nuclear WBC scan ordered which will be done possibly tomorrow, we will followup. She also had a CT scan of the head, chest, abdomen which did not show any possible source of infection, however, it does show a questionable mass at the esophagus, therefore, EGD was done with Dr. Cohen and it did not show any mass. Biopsy only shows inflammation. 2. Panic attack. Patient had a chest x-ray yesterday, it shows possible interstitial edema. IV fluid has been discontinued. Clinically patient does not have any edema and she was sating at 100%, however, while placing order to titrate oxygen above 92% if patient has a desaturation. 3. Diarrhea. Resolved. She has no Clostridium (C) difficile and is negative. 4. Hemorrhoid. Patient is on steroid suppositories and also lidocaine. Continue to monitor. 5. Urinary retention. Patient is on Tang. Initially Tang was discontinued, however, urinary retention recurred, therefore, Tang was reinserted. 6. Altered mental status, possibly secondary to septic encephalopathy. MRI did not show any acute findings. We will consult infection disease, Dr. Beatty. 7. Chest pain, possibly secondary to esophageal spasm or inflammation. Barium swallow shows a hiatal hernia. EGD only shows gastric ulcer. Pathology shows inflammation. We appreciate Dr. Cohen's assistance. 8. Protein calorie malnutrition with hypoalbuminemia secondary to poor nutrition and by mouth intake. Continue Ensure supplements. Patient has not been eating much for a week per patient's family. At this point we will consider alterative with nutrition. The family has already refused PEG tube feeding, will consider TPN, however, will not perform at this point until seen by infectious disease due to TPN thus increase chance for infection. 9. Myelodysplastic syndrome. Dr. Wright was consulted. Per Dr. Wright patient has RAEB-2 myelodysplastic syndrome. The patient also recently received Decitabine chemotherapy and Dr. Wright recommended the patient be transferred to [place] due to currently we do not have infectious disease coverage; however, the patient's family refused and also at the point that outpatient hematology/oncology in [place] also recommended patient not have further chemotherapy due to she is no longer a candidate and continue supportive care. 10. Coronary artery disease, status post coronary artery bypass graft (CABG). Continue medications, continue beta angelito and statin. 11. History of congestive heart failure. An echocardiogram does show ejection fraction of 50%. Mild global hypokinesis and a grade 2 diastolic dysfunction and severe mitral insufficiency and currently patient appears to be slightly fluid overloaded. Chest x-ray did show some interstitial edema. We will hold patient's IV fluids for now. Patient is stating at 100% on room air currently. 12. Deep vein thrombosis (DVT) prophylaxis. On sequential compression device (SCD) due to thrombocytopenia. DISPOSITION: Continue antifungal and antibactieral. CRP continues to be elevated. We appreciate Dr. Wright's help. Patient is DO NOT RESUSCITATE, DO NOT INTUBATE. We will consult Dr. Beatty once she returns. Family is currently leaning more towards comfort oriented care pending final decision with infectious disease imput. The patient has been discussed with the attending doctor, Dr. Burgess. My preceptor for this patient encounter was Dr. Deborah Burgess. The preceptor was physically present in the building during the encounter and was fully available. As needed, all aspects of the patient interview, examination, medical decision making process, and medical care plan development were reviewed and approved by the preceptor. The preceptor is aware and concurs with the plan as stated in the body of this note and will attest to such by his/her cosignature. I have both independently examined this patient as well as reviewed the note. I have discussed in detail with the resident the findings and plan of treatment as documented in the residents note. I will continue to follow the patient and offer further guidance to the patients care as necessary during this hospital stay. Deborah GRAMAJO
[2016-02-25] MEDS: DOXYCYCLINE HYCLATE 100 MG TAB PO SCH ×2 (12:55→21:01)
[2016-02-25] MEDS: FLUCONAZOLE 100 MG TAB PO SCH (12:56)
[2016-02-25 14:00] VITALS: BP 149/65
[2016-02-25] MEDS: ALPRAZolam 0.25 MG TAB PO PRN (14:32)
[2016-02-25] MEDS: COMBIVENT RESPIMAT 100-20MCG INHALER 4GM INH SCH ×2 (19:38→23:07)
--- NOTE | 2016-02-25 20:53 | IPN ---
DATE: 02/25/2016 Time patient was seen was this morning at 10 a.m. After discussing with Dr. Burgess, we have decided to switch patient's intravenous (IV) antibiotic to oral antibiotic because IV line could not be started on patient due to upper extremity swelling and patient initially refused IV antibiotic. Therefore, patient was started on doxycycline 100 mg one tablet by mouth twice a day and also fluconazole 400 mg one tablet by mouth daily and a loading dose of Levaquin 750 mg. We will consult infectious disease, Dr. Beatty, tomorrow regarding further antibiotic management. Patient has been discussed with attending doctor, Dr. Burgess. My preceptor for this patient encounter was Dr. Deborah Burgess. The preceptor was physically present in the building during the encounter and was fully available. As needed, all aspects of the patient interview, examination, medical decision making process, and medical care plan development were reviewed and approved by the preceptor. The preceptor is aware and concurs with the plan as stated in the body of this note and will attest to such by his cosignature. I have both independently examined this patient as well as reviewed the note. I have discussed in detail with the resident the findings and plan of treatment as documented in the residents note. I will continue to follow the patient and offer further guidance to the patients care as necessary during this hospital stay. Deborah GRAMAJO
[2016-02-25] MEDS ORDERED: ALPRAZolam 0.25 MG TAB PO SCH (21:00)
[2016-02-25] MEDS: FOLIC ACID 1 MG TAB PO SCH (21:01)
[2016-02-25] MEDS: ASCORBIC ACID 500 MG TAB PO SCH (21:01)
--- NOTE | 2016-02-25 21:24 | IPN ---
DATE: 02/24/2016 SUBJECTIVE: Patient is seen and examined. No acute events overnight. Continues to be mildly confused. Continues to have poor oral intake. Denies any chest pain, pressure, or discomfort. Denies any abdominal pain. VITAL SIGNS: Temperature 99.2, pulse 75, respirations 16, blood pressure 131/61, pulse oximetry 93% on room air. LABORATORY DATA: WBC 0.8, hemoglobin and hematocrit 7.9/24.5, platelets 51. Chemistry: Sodium 140, potassium 4, chloride 105, bicarbonate 24, BUN 9, creatinine 1.08, C-reactive protein 12.2. PHYSICAL EXAMINATION: GENERAL: The patient is frail, arousable, awake, alert, and oriented times one in no acute distress. HEENT: Normocephalic, atraumatic. PULMONARY: Bilaterally clear to auscultation. No wheezes, rales, or rhonchi. CARDIAC: Regular rate and rhythm; normal S1, S2. ABDOMEN: Soft, nontender, and nondistended. Positive bowel sounds. EXTREMITIES: No edema bilateral lower extremities. NEUROLOGIC: No focal deficits. ASSESSMENT AND PLAN: This is a 65-year-old female patient with underlying medical history of coronary artery disease with coronary artery bypass graft (CABG), myelodysplastic syndrome status post chemotherapy two weeks prior to admission, history of hypertension, dyslipidemia, and anxiety, congestive heart failure (CHF). Patient was initially admitted with neutropenic fever, altered mental status, as well as chest discomfort. 1. Neutropenic fever of unclear etiology. Culture has been sent which includes blood culture, viral culture, fungal culture. Patient initially on meropenem and vancomycin. Diflucan fungal coverage has also been added. Lumbar puncture has been done. Senior Physical Therapist, Dr. Wright has been consulted and recommended patient to be transferred to [place]; however, the patient and family refused transfer. Dr. Barone on admission also has recommended that the patient be transferred; however, family also refused. CT of the chest, head and abdomen has also been appreciated showing questionable esophageal mass, but esophagogastroduodenoscopy (EGD) has been negative. Barium swallow has also been negative other than gastric ulcers; nothing else discovered on EGD. Pathology has been sent. We will consult Dr. Beatty once she returns back from vacation. Currently, infectious disease hospice care consultant not available. Discussed with family. Family believes that the patient would not want to be transferred and would like to wait for infectious disease hospice care consultant to return. Also the possibility of tagged WBC scan. We will discuss with Dr. Beatty to see if that test is relevant to look for infectious etiology. In the meantime, continue antibiotics as above. 2. CT scan shows questionable esophageal mass. EGD was negative. Biopsy was sent. 3. Diarrhea. Gastrointestinal (GI) panel was negative. Continue to follow. 4. Urinary retention. Tang catheter. 5. Altered mental status. Metabolic encephalopathy possibly secondary to underlying infection versus secondary to cancer. MRI shows no acute finding. Continue treatment as mentioned above. Will consult infectious disease doctor. 6. Chest pain, possibly secondary to gastric ulcer versus esophageal spasm. Barium swallow shows hiatal hernia. EGD also appreciated. Continue medication as ordered. 7. Hypoalbuminemia secondary to poor nutrition. Ensure. 8. Myelodysplastic syndrome. Dr. Wright has been consulted. The patient had RAEB2 myelodysplastic syndrome. Has recently received decitabine chemotherapy and Dr. Wright has recommended the patient be transferred to [place] due to we do not have infectious disease coverage; however, the patient's family has refused. Patient currently on airborne precautions. As per patient's outpatient core worker, who does not believe the patient would tolerate another session of chemotherapy. Continue to monitor CBC, supportive care, transfuse as needed. 9. Coronary artery disease, history of coronary artery bypass graft (CABG). Continue medications as ordered. Patient on beta angelito and statin. Not on antiplatelets because patient is thrombocytopenic. 10. History of congestive heart failure. Echocardiogram in 02/19/2016, showed ejection fraction 50%. Patient also has mild global hypokinesis and subsegmental wall motion abnormalities with grade 2 diastolic dysfunction, severe mitral insufficiency. Currently patient is euvolemic. Continue to monitor. Strict intake and output. 11. Chronic kidney disease (CKD). Currently stable. IV fluids given patient has poor oral intake. 12. Protein calorie malnutrition. Ensure supplementation. Patient is not taking much oral. Discussed with the family the prospect of possible percutaneous endoscopic gastrostomy (PEG) feeding. Family believes that the patient would not want alternative methods of nutrition. 13. Deep vein thrombosis (DVT) prophylaxis. Sequential compression devices given that patient is thrombocytopenic. DISPOSITION: Continue antibiotics and antifungals. Appreciate Dr. Wright's assistance. Followup cultures and followup studies. DO NOT RESUSCITATE (DNR) and DO NOT INTUBATE (DNI). Consult Dr. Beatty once she returns due to infectious etiology. Will discuss goals of care with the family, if infectious etiology has been ruled out, which will include comfort measures. Final decision pending ID input.
[2016-02-25 22:00] VITALS: BP 109/73
[2016-02-26] VITALS (12 sets, daily range): BP systolic 98–160; BP diastolic 46–72
[2016-02-26] MEDS: MEROPENEM INJ 1 GM in D5W MINI-BAG PLUS 100 ML IV SCH ×2 (01:01→13:37)
[2016-02-26] MEDS: ALPRAZolam 0.25 MG TAB PO SCH ×3 (05:11→16:53)
[2016-02-26] MEDS: COMBIVENT RESPIMAT 100-20MCG INHALER 4GM INH SCH ×4 (06:00→23:34)
[2016-02-26 06:19] LABS: BASO % 1.3 % (0.0-1.0); LARGE UNSTAINED CELL # 0.1 K/mm3 (0.0-0.4); LARGE UNSTAINED CELL % 9.8 % (0.0-4.0); LYMPH # 0.4 K/mm3 (1.5-4.5); LYMPH % 45.8 % (24.0-44.0); MEAN CORPUSCULAR HGB CONC 33.2 g/dl (32.0-36.5); MEAN CORPUSCULAR VOLUME 90.5 fl (80.0-96.0); MONO % 4.1 % (0.0-5.0); NEUTROPHILS # 0.4 K/mm3 (1.8-7.7); RED CELL DISTRIBUTION WIDTH 15.9 % (11.5-14.5)
[2016-02-26 06:33] LABS: PLATELET COUNT, AUTOMATED 41 k/mm3 (150-450); WHITE BLOOD COUNT 0.9 K/mm3 (4.0-10.0)
[2016-02-26 06:34] LABS: NEUTROPHILS % 38.9 % (36.0-66.0)
[2016-02-26 06:39] LABS: ALBUMIN 1.6 GM/DL (3.2-5.2); ALBUMIN/GLOBULIN RATIO 0.35 (1.00-1.93); ALKALINE PHOSPHATASE 61 U/L (45-117); ALT/SGPT < 6 U/L (12-78); ANION GAP 9 MEQ/L (8-16); AST/SGOT 11 U/L (15-37); BILIRUBIN,TOTAL 0.9 MG/DL (0.2-1.0); BLOOD UREA NITROGEN 14 MG/DL (7-18); CALCIUM LEVEL 7.4 MG/DL (8.8-10.2); CARBON DIOXIDE LEVEL 25 MEQ/L (21-32); CHLORIDE LEVEL 107 MEQ/L (98-107); CREATININE FOR GFR 1.01 MG/DL (0.55-1.02); GLOMERULAR FILTRATION RATE 58.2 (>45); GLUCOSE, FASTING 77 MG/DL (80-110); MAGNESIUM LEVEL 1.8 MG/DL (1.8-2.4); POTASSIUM SERUM 3.7 MEQ/L (3.5-5.1); SODIUM LEVEL 141 MEQ/L (136-145); TOTAL PROTEIN 6.2 GM/DL (6.4-8.2)
[2016-02-26] MEDS: LACTOBACILLUS ACIDOPHILUS CAP (BACID) PO SCH ×3 (09:00→16:00)
--- NOTE | 2016-02-26 10:23 | IPN ---
DATE: 02/26/2016 Time patient was seen was this morning at 0813. The patient is has been seen and examined at the bedside. No acute events overnight. The patient is feeling about the same. Her hemoglobin this morning was dropped to 6.8 from 7.8 yesterday. Otherwise, the patient denies any bleeding anywhere. Denies any blood in the urine or stool. Denies any fever or chills, any chest pain, trouble breathing, abdominal pains, nausea, vomiting, diarrhea, constipation. The patient still has a Tang. The patient's family does not want to transfuse her right now due to they are considering making her comfort measures only (TOP CUTTER) and going for hospice. However, the patient's family would like to hear back from Dr. Beatty first before considering possible transfusion. PHYSICAL EXAMINATION: VITAL SIGNS: Temperature 99.5, pulse 88, respiration 20, blood pressure 160/72. Oxygen was saturating at 92% on room air. The patient's input and output shows a total input of 205, total output was 560. WBC 0.9, hemoglobin 6.8, hematocrit 20.5, MCV was 19.5 and platelet count was 41. Sodium 141, potassium 3.7, chloride 107, bicarbonate 25, BUN 14, creatinine 1.01 , GFR 58.2, fasting glucose 77, calcium 7.4, magnesium 1.8, AST 11, ALT less than 6. TRADING ANALYST was continued to be elevated at 14. Total protein 6.2, albumin 1.6. Viral culture is pending. GI panel has been negative. CSF culture for microbacteria is pending, acid fast was 10, was not performed. The patient's Gram stain CSF is negative. Blood culture after 5 days was negative. Pathology from 02/21/2016 shows moderate acute on chronic inflammation. ASSESSMENT/PLAN: 65-year-old female with a past medical history of coronary artery disease, status post CABG, myelodysplastic syndrome status post chemotherapy two weeks prior to admission, history of hypertension, dyslipidemia , anxiety, congestive heart failure. The patient initially admitted for neutropenic fever and altered mental status as well as chest discomfort. 1. Neutropenic fever of unclear etiology: Culture has been ordered. So far everything has been negative. The patient was originally on vancomycin and meropenem. However, she lost her IV site and she has been placed on by mouth doxycycline and Levaquin pending to be seen by infectious disease, Dr. Beatty and we appreciate her help. Lumbar puncture was also done and so far everything is negative. Dr. Barone was initially was discussed and they recommended to transfer the patient. Dr. Wright from hematology/oncology was also consulted and recommended to transfer the patient. However, the family refused. According to the family, patient was evaluated in [place] at hematology/oncology and given that her life expectancy was 2 to 4 months, therefore, they are actually considering to make the patient TOP CUTTER. This morning her hemoglobin was also low and the patient's family refused a transfusion right now and stated they would like to talk with Dr. Beatty first due to possibly they will make the patient TOP CUTTER. In addition, esophagogastroduodenoscopy (EGD) was done with Dr. Cohen also for possible mass in the esophagus, which was negative. Biopsy only shows inflammation. 2. Panic attack and anxiety: The patient is on Xanax. 3. Mild anasarca with third spacing and interstitial edema in the lung likely secondary to protein malnutrition. Will start the patient on gentle Lasix 20 mg twice a day for the next 2 days and will watch for her blood pressure and will hold Lasix of her blood pressure is less than 130. 4. Diarrhea: Resolved. C difficile negative. 5. Hemorrhoid: On steroids suppository as well as lidocaine cream. 6. Urinary retention: Continue on Tang due to it was discontinued prior. However, urinary retention recurred and the patient's family requested that the patient be kept on the Tang catheter. 7. Altered mental status possibly secondary to septic encephalopathy. MRI was negative for acute findings. Will consult infectious disease Dr. Beatty. 8. Chest pain, possibly secondary to esophageal spasm or inflammation. Barium swallow shows hiatal hernia. EGD only shows gastric ulcer. Pathology also shows inflammation. We appreciated general surgery. Dr. Cohen's assistance. 9. Protein calorie malnutrition and hypoalbuminemia secondary to poor nutrition. Poor intake by mouth. Continue Ensure supplements. The patient does not want to eat and also refused a percutaneous endoscopic gastrostomy (PEG) tube feeding. The patient also started having some third spacing and mild anasarca from low albumin count. Will continue to monitor. Continue low dose Lasix. 10. Myelodysplastic syndrome: Dr. Wright was consulted and recommended transfer the patient. However, the family refused and the patient is likely progressing into acute leukemia with a prognosis of 2 to 4 months, per the patient's family. They are considering TOP CUTTER and hospice. 11. Coronary artery disease status post CABG. Continue home medication beta angelito and statin. 12. History of congestive heart failure: Echocardiogram shows ejection fraction of 50%, grade 2 diastolic dysfunction and mild global hypokinesis, severe mitral insufficiency. Also the patient has some fluid overload secondary to congestive heart failure and also third spacing from protein calorie malnutrition. 13. Deep venous thrombosis prophylaxis: On sequential compression device (SCD) due to thrombocytopenia. DISPOSITION: Continue by mouth antibiotics and by mouth antifungal. CRP continues to be elevated. The patient refused transfusion this morning pending to be seen by Dr. Beatty. The patient is considering TOP CUTTER and home hospice once cleared with infectious disease. The patient has been discussed with attending Dr. Burgess. My preceptor for this patient encounter was Dr. Deborah Burgess. The preceptor was physically present in the building during the encounter and was fully available. As needed, all aspects of the patient interview, examination, medical decision making process, and medical care plan development were reviewed and approved by the preceptor. The preceptor is aware and concurs with the plan as stated in the body of this note and will attest to such by his/her cosignature. I have both independently examined this patient as well as reviewed the note. I have discussed in detail with the resident the findings and plan of treatment as documented in the residents note. I will continue to follow the patient and offer further guidance to the patients care as necessary during this hospital stay. Deborah GRAMAJO
[2016-02-26] MEDS: SUCRALFATE SUSP 1GM/10ML UD PO SCH ×4 (10:28→20:47)
[2016-02-26] MEDS: FLUCONAZOLE 100 MG TAB PO SCH (10:29)
[2016-02-26] MEDS: PANTOPRAZOLE 40MG TAB (PROTONIX) PO SCH ×3 (10:29→21:00)
[2016-02-26] MEDS: LORATADINE 10 MG TAB PO SCH (10:29)
[2016-02-26] MEDS: CARVedilol 3.125 MG TAB PO SCH ×2 (10:31→20:47)
[2016-02-26] MEDS: VANCOMYCIN HCL 750 MG, VIAL MATE ADAPTER 1 EACH in D5W 250 ML IV SCH (11:17)
[2016-02-26] MEDS: FUROSEMIDE 20 MG TAB PO SCH (11:18)
[2016-02-26] MEDS: MOM 30ML SUSPENSION UDC PO PRN (13:37)
[2016-02-26] MEDS ORDERED: FUROSEMIDE 40 MG/4 ML VIAL (J1940) As Ordered ONE (16:48)
[2016-02-26] MEDS ORDERED: FUROSEMIDE 40 MG/4 ML VIAL (J1940) IV ONE (16:55)
[2016-02-26] MEDS: oxyCODONE 5MG TAB PO PRN (17:24)
[2016-02-26] MEDS: ALPRAZolam 0.25 MG TAB PO PRN (17:52)
--- NOTE | 2016-02-26 19:37 | CR ---
DATE OF CONSULTATION: 02/26/2016 REASON FOR CONSULTATION: I was asked to consult by Dr. Burgess for evaluation of febrile neutropenia with unknown source. HISTORY OF PRESENT ILLNESS: Mrs. Alexander as a pleasant 65-year-old female who was admitted on 02/12 with febrile neutropenia. She is a patient of Dr. Gomes in [place] for Hematology/Oncology where she was recently diagnosed with myelodysplastic syndrome and acute blastic crisis. She received chemotherapy with decitabine for five days at [facility], following which she developed fever and neutropenia, and she has been pancultured. In the hospital a spinal temperature was done for workup of confusion and all culture results have been negative. The patient has received from 02/12 meropenem which was discontinued on 02/23, when she lost her intravenous (IV) site along with IV vancomycin. She was started on fluconazole on 02/18, 400 mg IV which was switched to oral fluconazole also when she lost her IV site. Her last temperature has been on 02/23. Temperature was 100. The patient has required blood transfusions. She is receiving two units of blood today and had received two units on 02/12. She has also received platelets. The patient has no complaints. She denies any nausea, vomiting, diarrhea, abdominal pain. She does have shortness of breath, seems worse today, but the family seems to believe that it is anxiety related. PAST MEDICAL HISTORY: Significant for: 1. Coronary artery disease status post coronary artery bypass graft (CABG) in September of 2015. 2. Anxiety. 3. Congestive heart failure. 4. Chronic obstructive pulmonary disease (COPD). 5. Hyperlipidemia. 6. Hypertension. 7. History of myocardial infarction (ND) 8. Myelodysplastic syndrome with acute blastic crisis. PAST SURGICAL HISTORY: 1. Cataract surgery. 2. CABG. 3. Tubal ligation. 4. Saphenous vein grafting from the right leg. SOCIAL HISTORY: She is a former smoker, quit many years ago. She lives at home with her son who is her caregiver. She has a daughter who also is her healthcare proxy, named Lou. ALLERGIES: SULFA. MEDICATIONS: - furosemide 20 mg by mouth every 12 hours - albuterol/Atrovent inhaled every six hours - Xanax 0.125 mg every six hours and every four as needed - fluconazole 400 mg daily - lidocaine jelly - Carafate 1 gram by mouth before meals and at bedtime - Desitin to butt area - probiotics one tablet by mouth three times a day - vancomycin 750 mg IV every 24 hours - Coreg 3.125 mg by mouth twice a day - Claritin 10 mg by mouth daily - meropenem 1 gram IV every 12 hours - oxycodone as needed - folic acid 1 mg by mouth at bedtime LABORATORY DATA: White count 0.9, hemoglobin 6.8, hematocrit 20.5, platelets 41, 39% neutrophils, 45% lymphocytes. She has sodium 141, potassium 3.7, chloride 107, bicarb 25, BUN 14, creatinine 1, glucose 77, calcium 7.4, magnesium 1.8, bilirubin 0.9, AST 11, ALT less than 6. CRP has fluctuated between 12.2 and 18. MICROBIOLOGY: Cultures on 02/11: Two sets of blood cultures were negative. On 02/18, two more sets were negative. Stool Hemoccult negative. Urine culture negative. CSF on 02/18 was negative. AFB smear was negative. Herpes PCR negative. Viral culture is pending. GI panel is negative. PHYSICAL EXAMINATION: VITAL SIGNS: Temperature is 98.8, pulse 76, respirations 22, blood pressure 134/58, oxygen saturation 92% on room air. HEART: Normal S1, S2. No murmurs. LUNGS: Crackles at both bases. The patient is dyspneic. No wheezes or rhonchi. ABDOMEN: Soft, nontender. No hepatosplenomegaly. EXTREMITIES: Trace ankle edema. Right foot drop. SKIN: Right calf has a healed incision measuring about 5 cm from saphenous vein grafting. Chest wall has an incision from CABG with mild tenderness in the inferior aspect but no instability of the sternum. NEUROLOGIC: The patient is alert to person, but confused to place and time. Moves all extremities but not able to comply with neurologic exam. Has a right foot drop. NECK: Supple. No jugular venous distention (JVD), no bruits. IMAGING STUDY: Chest x-ray done on 02/23 showed diffuse increased markings and interstitial prominence. Differential includes edema, interstitial edema versus pneumonitis. Small left pleural effusion. CT of the abdomen shows mild ileus. Mural thickening at the GE junction with a questionable mass. Endoscopy was done which showed a fragment of GE junction with moderate acute and chronic inflammation. No at metaplasia or dysplasia. Brain MRI done for workup of confusion was limited due to motion but only showed ischemic vessel disease. Chest CT shows prior sternotomy, dilated air and oral contrast filled the esophagus with questionable esophageal mass, some pulmonary nodules, the largest of which measures 6 mm. IMPRESSION: This is a 65-year-old female with a recent diagnosis of myelodysplastic syndrome, refractory anemia with excess blasts, status post chemotherapy with decitabine, who has shown no response after four weeks. The patient has had low-grade fevers throughout the admission in spite of negative cultures. Her last temperature was 48 hours ago. She is currently severely neutropenic and anemic and is requiring a transfusion of red blood cells. The patient has mild congestive heart failure with increased hypoxia, oxygen saturation 92%, and dyspnea, and I have recommended the nurse to call the primary care provider for some Lasix. I do not see any evidence of infection at this point. All cultures and imaging studies have been negative including lumbar puncture. The fevers could be just related to her malignancy. Other possibilities could be reactivation of José Miguel-Hernandez virus (EBV) or cytomegalovirus (CMV). Possibly also related to transfusions. PLAN: 1. Suggest to discontinue IV antibiotics. There has been no evidence of positive culture. Discontinue IV vancomycin, IV meropenem. Switch to oral Levaquin for another week. If there is no recovery of bone marrow, then the patient probably should be discharged home on hospice. 2. Avoid using probiotics as they are live cultures, and in patients with neutropenia, that can cause bacteremia. Therefore, that will be discontinued. Case has been discussed with Dr. Burgess and her daughter, Lou, who is a nurse, who has agreed with the plan. EBV and CMV polymerase chain reaction (PCR) have been ordered as well.
[2016-02-26] MEDS: FOLIC ACID 1 MG TAB PO SCH (20:47)
[2016-02-26] MEDS: ASCORBIC ACID 500 MG TAB PO SCH ×2 (20:47→21:00)
[2016-02-27] MEDS: FUROSEMIDE 20 MG TAB PO SCH ×2 (00:07→11:17)
[2016-02-27] MEDS: ALPRAZolam 0.25 MG TAB PO SCH ×3 (00:07→11:17)
[2016-02-27 00:08] VITALS: BP 128/61
[2016-02-27] MEDS ORDERED: oxyCODONE 5MG TAB PO PRN (04:30)
[2016-02-27 06:00] VITALS: BP 146/67
[2016-02-27] MEDS ORDERED: LevoFLOXacin 500 MG TABLET PO SCH (06:00)
[2016-02-27 06:43] LABS: ALBUMIN 1.6 GM/DL (3.2-5.2); ALBUMIN/GLOBULIN RATIO 0.36 (1.00-1.93); CALCIUM LEVEL 7.4 MG/DL (8.8-10.2); CREATININE FOR GFR 1.09 MG/DL (0.55-1.02); GLOMERULAR FILTRATION RATE 53.3 (>45); MAGNESIUM LEVEL 1.8 MG/DL (1.8-2.4); POTASSIUM SERUM 3.2 MEQ/L (3.5-5.1)
[2016-02-27 07:05] LABS: BASO % 1.4 % (0.0-1.0); EOS % 0.1 % (0.0-3.0); LARGE UNSTAINED CELL % 9.9 % (0.0-4.0); LYMPH % 45.7 % (24.0-44.0); MEAN CORPUSCULAR HEMOGLOBIN 30.1 pg (27.0-33.0); MEAN CORPUSCULAR HGB CONC 34.4 g/dl (32.0-36.5); MEAN CORPUSCULAR VOLUME 87.7 fl (80.0-96.0); MONO % 2.4 % (0.0-5.0); NEUTROPHILS % 40.5 % (36.0-66.0); RED CELL DISTRIBUTION WIDTH 16.9 % (11.5-14.5); WHITE BLOOD COUNT 1.3 K/mm3 (4.0-10.0)
[2016-02-27 07:06] LABS: LARGE UNSTAINED CELL # 0.1 K/mm3 (0.0-0.4); LYMPH # 0.6 K/mm3 (1.5-4.5); NEUTROPHILS # 0.5 K/mm3 (1.8-7.7); PLATELET COUNT, AUTOMATED 32 k/mm3 (150-450)
[2016-02-27] MEDS ORDERED: POTASSIUM CHLORIDE 10 MEQ SR TABLET PO ONE (07:30)
[2016-02-27] MEDS: SUCRALFATE SUSP 1GM/10ML UD PO SCH ×2 (07:47→11:16)
[2016-02-27] MEDS: PANTOPRAZOLE 40MG TAB (PROTONIX) PO SCH (07:48)
[2016-02-27] MEDS: FLUCONAZOLE 100 MG TAB PO SCH (07:48)
[2016-02-27] MEDS: LORATADINE 10 MG TAB PO SCH (07:49)
[2016-02-27] MEDS: CARVedilol 3.125 MG TAB PO SCH (07:50)
[2016-02-27] MEDS: ALPRAZolam 0.25 MG TAB PO PRN ×2 (07:59→14:47)
[2016-02-27] MEDS: COMBIVENT RESPIMAT 100-20MCG INHALER 4GM INH SCH ×2 (08:01→13:38)
[2016-02-27] MEDS ORDERED: ATRO1OPD PO (11:16)
[2016-02-27] MEDS ORDERED: FLUC10TA PO (11:16)
[2016-02-27] MEDS ORDERED: LORA1TAB PO (11:16)
[2016-02-27] MEDS ORDERED: LEVA500T PO (11:16)
[2016-02-27] MEDS ORDERED: PROT1TAB2 PO (11:16)
[2016-02-27] MEDS ORDERED: MORP1SOL PO (11:16)
[2016-02-27] MEDS ORDERED: OXYCO5TA PO (11:19)
[2016-02-27] MEDS ORDERED: XANA0.25 PO (11:19)
--- NOTE | 2016-02-27 12:21 | IPN ---
DATE: 02/27/2016 Time patient was seen was this morning at 8:20. The patient has been seen and examined at bedside. No acute events overnight. The patient remains confused. Denies any chest pain, trouble breathing, abdominal pain, nausea, vomiting, diarrhea or constipation. The patient was seen by Dr. Beatty yesterday and recommended possible comfort measures only if the patient does not improve. The patient's family also considering about hospice. PHYSICAL EXAMINATION: VITAL SIGNS: Temperature was 96, pulse 68, respirations 20, blood pressure 146/67, oxygen saturation 96% on 2 liters nasal cannula. Total input was 842, total output was 1625. GENERAL: The patient is a thin-looking elderly female who was alert, awake and oriented times three, does not appear to be in distress. Lying comfortably in bed with head elevated at 45 degree angle. HEENT: Normocephalic, atraumatic. Extraocular motors intact. Mucosa moist. NECK: Supple. No neck lymphadenopathy. CARDIOVASCULAR: Regular rate and rhythm. S1, S2. No murmurs, rubs or gallops. LUNGS: Clear to auscultation bilaterally. No wheezes, rales or rhonchi. ABDOMEN: Positive bowel sounds. Soft, nondistended, nondistended. No peritoneal signs. No ecchymoses. EXTREMITIES: Slight nonpitting edema in bilateral lower extremities. Otherwise , no clubbing or cyanosis. SKIN: Warm and dry. NEUROLOGIC: Cranial nerves II through XII intact. No focal neurological deficit. LABORATORY DATA: WBC 1.3, hemoglobin 7.8, hematocrit 22.6, with a platelet count of 32. MCV of 87.7. Sodium 142, potassium was low this morning at 3.2, chloride 104, bicarbonate 29, BUN 16, creatinine 1.09, GFR 53.3, fasting glucose 91, calcium 7.4, albumin 1.6. The patient's CMV and EV PCR are pending. Viral culture is pending. Other culture shows no growth. ASSESSMENT AND PLAN: 65-year-old female with a past medical history of coronary artery disease, status post coronary artery bypass graft (CABG), myelodysplastic syndrome, currently in blastic crisis, did receive chemotherapy two weeks prior to admission. According to the patient's daughter, oncologist has told them that no more chemotherapy due to patient could not tolerate it and given her two to four month prognosis, history of hypertension, dyslipidemia, anxiety, congestive heart failure (CHF), who presented with: 1. Neutropenic fever of unknown etiology. Cultures are all negative. Dr. Beatty from infectious disease has been consulted. Recommended CMV and EBV PCR. Also, the patient has been switched to oral Levaquin. Before she was on vancomycin and meropenem. The patient's family today is considering hospice and comfort measures only. 2. Chest pain, resolved. The patient did receive EGD with Dr. Cohen. CT of the abdomen and pelvis shows possible esophageal mass, which was not seen under EGD, biopsy only shows inflammation. 3. Panic attack and anxiety. The patient is on Xanax. 4. Mild anasarca and third spacing secondary to protein malnutrition. The patient is on gentle Lasix. 5. Diarrhea, resolved. Clostridium (C.) difficile negative. 6. Hemorrhoids, on steroid suppository and Lidocaine cream. 7. Urinary retention. Continue Tang. Family requested to keep the Tang in due to it was removed earlier and the patient's urinary retention returned. 8. Altered mental status, possibly secondary to sepsis encephalopathy. Dr. Beatty has been consulted. MRI was negative. The patient's CSF fluid has been negative. 9. Protein calorie malnutrition and hypoalbuminemia secondary to poor oral intake. Continue Ensure supplementation. Dietary has been consulted. We will follow. 10. Myelodysplastic syndrome with blast crisis. Initially, Dr. Barone recommended to transfer the patient. The patient's family refused. Dr. Wright was consulted again and recommended transferring; however, the patient's family refused as well. Family also states that hematology/oncology in [place] only gives her two to four months. 11. Coronary artery disease, status post CABG. Continue home medications, beta angelito and statin. 12. History of congestive heart failure (CHF). Echocardiogram shows ejection fraction of 50%, grade II diastolic dysfunction and mild global hypokinesis, severe mitral insufficiency, and also patient does have some anasarca secondary to protein calorie malnutrition. 13. Deep vein thrombosis (DVT) prophylaxis. Unnecessary currently due to thrombocytopenia. DISPOSITION: Dr. Beatty from Infectious disease has been consulted and has been seeing patient. We appreciate her recommendations. The patient is currently considering comfort measures only and hospice. We will continue to follow. The patient has been discussed with attending doctor, Dr. Burgess. My preceptor for this patient encounter was Dr. Burgess. The preceptor was physically present in the building during the encounter and was fully available. As needed , all aspects of the patient interview, examination, medical decision making process, and medical care plan development were reviewed and approved by the preceptor. The preceptor is aware and concurs with the plan as stated in the body of this note and will attest to such by his/her cosignature. I have both independently examined this patient as well as reviewed the note. I have discussed in detail with the resident the findings and plan of treatment as documented in the residents note. I will continue to follow the patient and offer further guidance to the patients care as necessary during this hospital stay. Deborah GRAMAJO
--- NOTE | 2016-02-27 13:57 | DSES ---
DATE OF ADMISSION: 02/13/2016 DATE OF DISCHARGE: 02/27/2016 ADMISSION DIAGNOSES: 1. Fever unknown etiology, possibly secondary to urinary tract infection (UTI). 2. Sepsis likely secondary to urinary tract infection. 3. Chest pain. 4. History of myelodysplastic syndrome. 5. Leukopenia, thrombocytopenia. 6. Anemia. 7. Coronary artery disease. 8. History of congestive heart failure. 9. Chronic kidney disease. DISCHARGE DIAGNOSES: 1. Neutropenic fever of unclear etiology. 2. Panic attack, anxiety. 3. Mild anasarca. 4. Interstitial edema likely secondary to protein calorie malnutrition and hypoalbuminemia. 5. Diarrhea resolved. 6. Hemorrhoid flare up. 7. Urinary retention. 8. Altered mental status possibly secondary to septic encephalopathy. 9. Chest pain possibly secondary to esophageal spasm versus inflammation. Also gastric ulcer. 10. Protein calorie malnutrition and hypoalbuminemia. 11. Myelodysplastic syndrome currently in blastic crisis. 12. Coronary artery disease status post coronary artery bypass graft (CABG). 13. Congestive heart failure. 14. Pancytopenia. CONSULTANTS: Dr. Cohen from general surgery. Dr. Beatty from infectious disease. Dr. Wright from hematology/oncology. Procedures and Imagin02/19/16 Dr. Burgess performed lumbar puncture for altered mental status and fever of unknown etiology 04/22/15 Dr. Cohen did EGD for possible esophageal mass found only gastric ulcer 02/13/16 MRI of brain: small vessel ischemic disease and mild volume loss. Acute infarctions cannot be excluded. 02/18/16: CT of abdomen and pelvis: Distended urinary bladder. Atrophic left kidney with compensatory enlargement of right kidney, mild symetric likely chronic perinephric stranding. 02/19/16: CT of head without contrast shows no acute intracranial abnormality. Mild diffuse atrophy and vascular calcification. 02/19/16: CT of chest with contrast: Vascular calcification. Dilated air and oral contrast filled esophagus question distal esophageal mas. Consider endoscopy. Multiple noncalcified and calcified pulmonary nodule seen. Largest noncalcified pulmonary nodule is 6mm. 6 month follow up chest CT study suggested. 02/19/16: CT of abd and pelvis with contrast: Mild ileus pattern in bowel gas. Mural thickening at GE junction. Question early mass. Consider endoscopy. HISTORY OF PRESENT ILLNESS: 65-year-old female with past medical history of myelodysplastic syndrome status post chemotherapy 2 weeks ago, history of chronic kidney disease, coronary artery disease status post coronary artery bypass graft (CABG) 3 months ago, history of hyperlipidemia, anxiety, congestive heart failure, presented to the emergency room with her son and daughter after a temperature of 101.9 at home as well as confusion, started 3 days ago. Prior to admission, patient was complaining of chest pain as well. Received one dose of Nitro in ambulance. Patient stated that the chest pain felt like it was spasm and it gets worse every time she drinks something and lasts only a few seconds and non-radiating. Patient also states that she was recently diagnosed with urinary tract infection. She finished 1 out of 2 weeks of Cipro and she has workup of leukemia initially but was later found to be myelodysplastic syndrome. Workup was done in [place] and the patient was referred to oncology in [place] to continue treatment and she was suppose to see Dr. Barone on February 27, 2016, however, she has not seen him yet. Patient was started on IV antibiotic in the emergency room. Blood culture, urine culture were ordered. She is otherwise hemodynamically stable. Denies any chest pain at time of admission. Denies nausea, vomiting. Denies diarrhea, coughing or chills. She does have multiple bruise on the petechia diffusely throughout her skin, worsening on her back. Hospitalists were consulted for admission. Patient was also advised to be transferred to [place] after speaking to Dr. Barone, oncology. However, patient's family refused. The reason for transferring was questionable acute leukemia. Family aware of the risk and they wish patient to be staying in [facility] and not be transferred to [place]. HOSPITAL COURSE: On day of admission, patient was started on IV antibiotics, vancomycin and meropenem. Dr. Barone initially recommended to transfer patient, however, patient's family refused. Patient received 2 units of irradiated platelet and also 2 units of irradiated TRBC and the patient was found to be in pancytopenia with platelet count of only 14. Over the next few days, patient's platelet improved after transfusion, however, no infectious source was found. At the same time, patient has chest pain, is worse with diet and fluid intake. Therefore, she was started on gastrointestinal (GI) regimen with GI cocktail, PPI and dose of Carafate. Patient's symptoms improved and over the next few days, patient continued to have fever. Therefore, patient was CAT scanned and CT of the chest shows that patient has a possible esophageal mass. Therefore, general surgery and Dr. Cohen were consulted to perform EGD. EGD was done and no masses were found. However, she does have a gastric ulcer. Biopsy from the EGD only shows inflammation. In addition, Dr. Wright was consulted again and stated that patient has a MDS and also received Decitabine chemotherapy 2 weeks before and has been found to be neutropenic since end of December and also her high school math teacher/oncologist in [place] found her to be too sick to continue chemotherapy and given patient a prognosis of 2-4 months. In addition during this admission, patient also received lumbar puncture to rule out meningitis, however, no growth was found in the cerebrospinal fluid and Dr. Beatty was consulted as well and recommended to switch patient's IV antibiotics to oral Levaquin. In addition, patient developed some anxiety and was started on Xanax and she was also empirically covered with antifungal agent fluconazole. She also had a hemorrhoid flare up and was started on steroid suppository and also lidocaine cream and on February 27, 2016, patient was on oral antibiotic and family is considering Hospice and comfort measures only (SUSTAINABLE AGRICULTURE FACULTY), therefore, patient was discharged from the hospital. CONDITION: Guarded. Discharge to home with previous level of care and possible Hospice in a few days. Activity as tolerated. Diet as tolerated. DISCHARGE MEDICATIONS: Include new medication: - Xanax 0.25 mg every 6 hours as needed - atropine 1-2 drops by mouth every 2 hours as needed - Diflucan 400 mg, 100 by mouth daily for 7 days - levofloxacin 500 mg by mouth daily for 7 days - lorazepam 0.5 mg one tablet by mouth every 4 hours as needed - morphine sulfate 0.25 to 1 mL by mouth every 2 hours as needed - pantoprazole 40 mg by mouth daily - GI Cocktail 50 ml PO q6HP Continue medication including: - vitamin C 500 mg by mouth daily at bedtime - carvedilol 3.125 mg by mouth twice daily - diphenhydramine 50 mg one tablet by mouth ever 4 hours as needed - folic acid 1 mg by mouth daily at bedtime - Lasix 20 mg by mouth daily - loratadine 10 mg one tablet by mouth daily - oxycodone 5 mg by mouth every 4 hours as needed - MiraLAX 17 grams by mouth daily as needed - potassium chloride 20 mEq one tablet by mouth daily - Prochlorperazine 10 mg by mouth three times daily - vitamin D 50,000 units one tablet by mouth daily Stop medication including: - alprazolam 0.125 mg one tablet every 6 hours - ciprofloxacin 500 mg by mouth twice daily - lorazepam 0.5 mg by mouth every 6 hours - lovastatin 40 mg by mouth daily at bedtime FOLLOWUP: Patient should consider to see primary care provider in 7 days and followup with Hospice for further care. Patient has been discussed with attending doctor, Dr. Burgess. My preceptor for this patient encounter was Dr. Burgess. The preceptor was physically present in the building during the encounter and was fully available. As needed, all aspects of the patient interview, examination, medical decision making process, and medical care plan development were reviewed and approved by the preceptor. The preceptor is aware and concurs with the plan as stated in the body of this note and will attest to such by his/her cosignature. I have both independently examined this patient as well as reviewed the note. I have discussed in detail with the resident the findings and plan of treatment as documented in the residents note. I will continue to follow the patient and offer further guidance to the patients care as necessary during this hospital stay. Deborah GRAMAJO
[2016-02-27] MEDS ORDERED: Hyoscyamine/Maalox/Lidoca Visc PO (15:02)
== END 2016-02-27 15:03 | disposition hospice, home (50) | DRG 871 ==
LOC: M ED 20:46 → M ED INP 02-13 00:05 → M PCU 02-13 01:24 → M MSPAV 02-15 12:56
PROVIDERS: ADMIT Internal Medicine; ATTEND Hospitalist
PROC: 30253N1 (ICD-10-PCS; principal; 2016-02-13)
PROC: 30253R1 (ICD-10-PCS; 2016-02-13)
PROC: [UNRECOGNIZED PROCEDURE] (2016-02-13)
PROC: 009U3ZX Drainage of Spinal Canal, Percutaneous Approach, Diagnostic (ICD-10-PCS; 2016-02-19)
PROC: 0DJ08ZZ Inspection of Upper Intestinal Tract, Via Natural or Artificial Opening Endoscopic (ICD-10-PCS; 2016-02-20)
DX: A41.9 Sepsis, unspecified organism (principal); G93.41 Metabolic encephalopathy; D61.810 Antineoplastic chemotherapy induced pancytopenia; N39.0 Urinary tract infection, site not specified; I13.0 Hypertensive heart and chronic kidney disease with heart failure and stage 1 through stage 4 chronic kidney disease, or unspecified chronic kidney disease; E46 Unspecified protein-calorie malnutrition; D46.22 Refractory anemia with excess of blasts 2; Z66 Do not resuscitate; I25.10 Atherosclerotic heart disease of native coronary artery without angina pectoris; E78.5 Hyperlipidemia, unspecified; E55.9 Vitamin D deficiency, unspecified; K59.00 Constipation, unspecified; D69.6 Thrombocytopenia, unspecified; B96.1 Klebsiella pneumoniae [K. pneumoniae] as the cause of diseases classified elsewhere; N18.9 Chronic kidney disease, unspecified; E88.09 Other disorders of plasma-protein metabolism, not elsewhere classified; D70.9 Neutropenia, unspecified; I50.9 Heart failure, unspecified; K44.9 Diaphragmatic hernia without obstruction or gangrene; K22.4 Dyskinesia of esophagus; R33.9 Retention of urine, unspecified; K28.9 Gastrojejunal ulcer, unspecified as acute or chronic, without hemorrhage or perforation; F41.0 Panic disorder [episodic paroxysmal anxiety]; K64.8 Other hemorrhoids; R19.7 Diarrhea, unspecified; J44.9 Chronic obstructive pulmonary disease, unspecified; I25.2 Old myocardial infarction; Z87.891 Personal history of nicotine dependence; Z79.899 Other long term (current) drug therapy; Z95.1 Presence of aortocoronary bypass graft; Z92.21 Personal history of antineoplastic chemotherapy